=== PATIENT | female | born 1990 | race Caucasian/White ===

== ENCOUNTER 2019-01-07 23:04 | Emergency (ER) | payer SELFPAY ==
[2019-01-07] MEDS ORDERED: ACETAMINOPHEN 325 MG TABLET ONE (23:30)
[2019-01-07] MEDS ORDERED: IBUPROFEN 200 MG TAB PO ONE (23:30)
[2019-01-07] MEDS ORDERED: IBUPROFEN 400 MG TAB ONE (23:31)
--- NOTE | 2019-01-08 00:30 | ER ---
Nurse's Notes [facility] Name: Bertha Sanches Age: 28 yrs Sex: Female : 1990 Arrival Date: 01/07/2019 Time: 23:06 Bed 27 Private MD: Diagnosis: Pain in left arm;Paresthesia of skin-left arm Presentation: 01/07 23:14 Presenting complaint: Patient states: she had the nexplanon implant removed from her L aa1 arm on Monday and has been having tingling in her arm and a headache ever since. Transition of care: patient was not received from another setting of care. Onset of symptoms was January 04, 2019. Risk Assessment: Do you want to hurt yourself or someone else? Patient reports no desire to harm self or others. Initial Sepsis Screen: Does the patient meet any 2 criteria? No. Patient's initial sepsis screen is negative. Does the patient have a suspected source of infection? No. Patient's initial sepsis screen is negative. Care prior to arrival: None. 23:14 Method Of Arrival: Ambulatory aa1 23:14 Acuity: JAY 4 aa1 Triage Assessment: 23:17 General: Appears in no apparent distress. comfortable, slender, unkempt, Behavior is aa1 calm, cooperative, appropriate for age. Pain: Complains of pain in left arm. 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 - Social history:: Smoking status: Patient uses tobacco products, smokes one pack cigarettes per day. - Ebola Screening: : No symptoms or risks identified at this time. Screenin:36 Abuse screen: Denies threats or abuse. Nutritional screening: No deficits noted. tr5 Tuberculosis screening: No symptoms or risk factors identified. Fall Risk None identified. Assessment: 23:36 General: Appears uncomfortable, Behavior is calm, cooperative, appropriate for age. tr5 Pain: Complains of pain in left arm Radiates to fingertips. Neuro: Level of Consciousness is awake, alert, obeys commands, Oriented to person, place, time, Dial Equipment Engineer are equal bilaterally Moves all extremities. Cardiovascular: Heart tones present Capillary refill < 3 seconds Pulses are all present. Edema is absent. Respiratory: Airway is patent Respiratory effort is even, unlabored, Respiratory pattern is regular, symmetrical. GI: No signs and/or symptoms were reported involving the gastrointestinal system. : No signs and/or symptoms were reported regarding the genitourinary system. EENT: No signs and/or symptoms were reported regarding the EENT system. Derm: Wound noted left bicep. Musculoskeletal: Capillary refill < 3 seconds. Vital Signs: 23:17 BP 107 / 65; Pulse 62; Resp 16; Temp 97.6; Pulse Ox 100% ; Weight 54.43 kg; Height 4 aa1 ft. 11 in. (149.86 cm); Pain 4/10; 23:17 Body Mass Index 24.24 (54.43 kg, 149.86 cm) aa1 ED Course: 23:06 Patient arrived in ED. ds1 23:12 Chauncey Sher PA is PHCP. cp 23:12 Juan Carlos Herrera MD is Attending Physician. cp 23:13 Patient has correct armband on for positive identification. tr5 23:16 Triage completed. aa1 23:17 Arm band placed on right wrist. Patient placed in an exam room, on a stretcher. aa1 23:24 Sebas John, RN is Primary Nurse. tr5 01/08 00:58 XRAY Forearm LEFT In Process Unspecified. EDMS 00:58 XRAY Humerus LEFT In Process Unspecified. EDMS 01:00 No provider procedures requiring assistance completed. Patient did not have IV access tr5 during this emergency room visit. Administered Medications: 01/07 23:35 Not Given (Patient Refused): Ibuprofen 600 mg PO once tr5 23:35 Drug: Tylenol 650 mg Route: PO; tr5 01/08 00:36 Follow up: Response: Pain is decreased tr5 Outcome: 00:30 Discharge ordered by . cp 01:00 Discharged to home ambulatory. tr5 01:00 Condition: stable 01:00 Discharge instructions given to patient, Instructed on discharge instructions, follow up and referral plans. medication usage, Demonstrated understanding of instructions, follow-up care, medications, Prescriptions given X 1. 01:01 Patient left the ED. tr5 Signatures: Dispatcher [employer] Fozia Brown RN RN aa1 Gabi Glynn ds1 Chauncey Sher PA PA cp Rodriguez, Tommie, RN RN tr5
--- NOTE | 2019-01-08 00:31 | EDPHYS ---
Physician Documentation [facility] Name: Bertha Sanches Age: 28 yrs Sex: Female : 1990 Arrival Date: 01/07/2019 Time: 23:06 Bed 27 Private MD: ED Physician Juan Carlos Herrera HPI: 01/07 23:21 This 28 yrs old Female presents to ER via Ambulatory with complaints of cp Tingiling through arm. 23:21 The patient or guardian complains of pain, that is acute, swelling, tenderness. The cp complaints affect the left upper arm and left forearm. Context: Patient reports having Nexplanon implant removed 3 days ago and since reports pain and tingling down medial aspect of arm to middle, fourth and fifth fingers. 23:21 Treatment prior to arrival includes: no previous treatment. cp 23:21 Associated signs and symptoms: Pertinent positives: swelling, open wound medial aspect cp left upper arm, Pertinent negatives: decreased range of motion, deformity, fever. 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 - Social history:: Smoking status: Patient uses tobacco products, smokes one pack cigarettes per day. - Ebola Screening: : No symptoms or risks identified at this time. ROS: 23:30 MS/extremity: Positive for pain, paresthesias, of the left arm, Negative for injury or cp acute deformity, decreased range of motion. 23:30 Constitutional: Negative for body aches, chills, fever, poor PO intake. cp 23:30 Neck: Negative for pain with movement, pain at rest, stiffness. 23:30 Cardiovascular: Negative for chest pain, palpitations. 23:30 Respiratory: Negative for cough, shortness of breath, wheezing. 23:30 Abdomen/GI: Negative for abdominal pain, nausea, vomiting, and diarrhea. 23:30 Neuro: Positive for headache, Negative for altered mental status, weakness. 23:30 All other systems are negative. Exam: 23:40 Constitutional: The patient appears in no acute distress, alert, awake, non-toxic, well cp developed, well nourished. 23:40 Head/Face: Normocephalic, atraumatic. cp 23:40 Chest/axilla: Inspection: normal, Palpation: is normal, no crepitus, no tenderness. 23:40 Cardiovascular: Rate: normal, Rhythm: regular, Pulses: Pulses are 2+ in right radial artery and left radial artery. 23:40 Respiratory: the patient does not display signs of respiratory distress, Respirations: normal, no use of accessory muscles, labored breathing, is not present, Breath sounds: are clear throughout, no decreased breath sounds, no stridor, no wheezing. 23:40 Musculoskeletal/extremity: Extremities: grossly normal except: noted in the medial aspect of left upper arm and medial aspect left forearm: pain, swelling, tenderness, mild erythema along medial elbow, There is no evidence of decreased ROM, deformity, ROM: full passive range of motion, in the left elbow, mild decreased sensation along medial nerve 23:40 Skin: injury, laceration(s), the wound is approximately 1 cm(s), of the medial aspect left upper arm. Vital Signs: 23:17 BP 107 / 65; Pulse 62; Resp 16; Temp 97.6; Pulse Ox 100% ; Weight 54.43 kg; Height 4 aa1 ft. 11 in. (149.86 cm); Pain 4/10; 23:17 Body Mass Index 24.24 (54.43 kg, 149.86 cm) aa1 MDM: 23:15 Patient medically screened. cp 01/08 00:20 Data reviewed: vital signs, nurses notes, radiologic studies, plain films. cp 00:20 Differential diagnosis: closed fracture, cellulitis, neuropathy. Test interpretation: cp by ED physician or midlevel provider: plain radiologic studies, xrays of left humerus negative for fracture and xrays of left forearm negative for fracture. Counseling: I had a detailed discussion with the patient and/or guardian regarding: the historical points, exam findings, and any diagnostic results supporting the discharge/admit diagnosis, radiology results, the need for outpatient follow up, a family practitioner, to return to the emergency department if symptoms worsen or persist or if there are any questions or concerns that arise at home. Response to treatment: the patient's symptoms have mildly improved after treatment, and as a result, I will discharge patient. 01/07 23:20 Order name: XRAY Forearm LEFT cp 01/07 23:20 Order name: XRAY Humerus LEFT cp 01/08 00:05 Order name: Wound dressing: please clean and irrigate wound; Complete Time: 00:36 cp 01/08 00:09 Order name: Sling; Complete Time: 00:36 cp Administered Medications: 01/07 23:35 Not Given (Patient Refused): Ibuprofen 600 mg PO once tr5 23:35 Drug: Tylenol 650 mg Route: PO; tr5 01/08 00:36 Follow up: Response: Pain is decreased tr5 Disposition: 01:15 Chart complete. cp 04:31 Co-signature as Attending Physician, Juan Carlos Herrera MD I agree with the assessment and tw4 plan of care. Disposition: 01/08/19 00:30 Discharged to Home. Impression: Pain in left arm, Paresthesia of skin - left arm. - Condition is Stable. - Discharge Instructions: Elastic Bandage and RICE, Musculoskeletal Pain, Paresthesia, Heat Therapy. - Prescriptions for Keflex 500 mg Oral Capsule - take 1 capsule by ORAL route every 8 hours for 10 days; 30 capsule. - Medication Reconciliation Form, Thank You Letter, Antibiotic Education, Prescription Opioid Use, Work release form form. - Follow up: Private Physician; When: 48 Hours; Reason: Wound Recheck. - Problem is new. - Symptoms have improved. Signatures: Dispatcher [employer] Fozia Brown RN RN aa1 Chauncey Sher PA PA cp Wadley, Terrence, MD MD tw4 Sebas John RN RN tr5 Corrections: (The following items were deleted from the chart) 01: 00:30 01/08/2019 00:30 Discharged to Home. Impression: Pain in left arm; Paresthesia of tr5 skin - left arm. Condition is Stable. Forms are Medication Reconciliation Form, Thank You Letter, Antibiotic Education, Prescription Opioid Use. Follow up: Private Physician; When: 48 Hours; Reason: Wound Recheck. Problem is new. Symptoms have improved. cp
[2019-01-08 01:27] VITALS: BP 107/65; TEMP 97.6; O2SAT 100
--- NOTE | 2019-01-08 08:26 | RAD REPORT ---
EXAM DESCRIPTION: RAD - Humerus Left - 01/08/2019 12:58 am CLINICAL HISTORY: Arm pain, possible retained implant COMPARISON: None. FINDINGS: No fracture is identified. There is no dislocation or periosteal reaction noted. No forei gn body, air or other suspicious soft tissue finding. IMPRESSION: Negative left humerus examination.
--- NOTE | 2019-01-08 08:26 | RAD REPORT ---
EXAM DESCRIPTION: RAD - Forearm Left - 01/08/2019 12:58 am CLINICAL HISTORY: Left arm pain, possible foreign body COMPARISON: None. FINDINGS: No fracture is identified. There is no dislocation or periosteal reaction noted. No foreign body or other soft tissue abnormality. IMPRESSION: Negative left forearm examination.
== END 2019-01-08 01:01 | disposition home or self-care (01) ==
LOC: ER 23:04
DX: M79.622 Pain in left upper arm (principal); R20.2 Paresthesia of skin; F17.210 Nicotine dependence, cigarettes, uncomplicated
CPT/HCPCS: 99283

== ENCOUNTER 2019-01-20 19:08 | Emergency (ER) | payer SELFPAY ==
[2019-01-20 19:38] LABS: Absolute Lymphocytes (CBC) 1.1 K/uL (0.7-4.9); Basophils % 0.4 % (0-1.3); Hematocrit 37.1 % (36.0-45.0); Lymphocytes % 13.6 % (15.3-44.8); MPV 9.1 fL (7.6-11.3)
--- NOTE | 2019-01-20 19:38 | RAD REPORT ---
EXAM DESCRIPTION: CT - Ct Stroke Brain Wo Cont - 01/20/2019 7:32 pm CLINICAL HISTORY: aphasia COMPARISON: none TECHNIQUE: Computed axial tomography of the head was obtained. All CT scans are performed using dose optimization technique as appropriate and may include automated exposure control or mA/KV adjustment according to patient size. FINDINGS: An intracranial bleed is not seen . The ventricles are normal in caliber. No extra-axial fluid collection is noted. Fluid within the sinuses/ mastoids is not seen. IMPRESSION: No acute intracranial abnormality is seen. If patient's symptoms persist MRI of the bra in would be recommended. Brando Kiser of the emergency room was notified at 7:31 p.m. January 20, 2019
[2019-01-20 19:42] LABS: Protime INR 1.1
[2019-01-20 19:57] LABS: BUN Blood Urea Nitrogen 12 mg/dL (7-18); Bicarbonate 25 mmol/L (21-32); Glucose Level 91 mg/dL (74-106); Sodium Level 141 mmol/L (136-145)
[2019-01-20 20:00] LABS: ALT/SGPT 22 U/L (12-78); AST/SGOT 12 U/L (15-37); Albumin 4.1 g/dL (3.4-5.0); Alkaline Phosphatase 44 U/L (45-117); Bilirubin Direct < 0.1 mg/dL (0-0.2); Bilirubin Total 0.3 mg/dL (0.2-1.0); Protein, Total 7.1 g/dL (6.4-8.2)
[2019-01-20 20:31] LABS: Barbiturates NEGATIVE (NEGATIVE); Benzodiazepines POSITIVE (NEGATIVE); Cocaine NEGATIVE (NEGATIVE); METHAMPHETAM NEGATIVE (NEGATIVE); Methadone NEGATIVE (NEGATIVE); Opiates NEGATIVE (NEGATIVE); Phencyclidine NEGATIVE (NEGATIVE); THC Cannibis NEGATIVE (NEGATIVE)
[2019-01-20 20:45] LABS: Urine Blood NEGATIVE (NEG); Urine Glucose NEGATIVE (NEG); Urine Protein NEGATIVE (NEG); Urine Specific Gravity >1.030 (1.005-1.030)
--- NOTE | 2019-01-20 20:54 | RAD REPORT ---
EXAM DESCRIPTION: Ayush Single View01/20/2019 7:46 pm CLINICAL HISTORY: Alteration of consciousness COMPARISON: none FINDINGS: A curvilinear lucency abuts the right side of the heart. Otherwise lungs appear clear. The heart is normal size IMPRESSION: Curvilinear lucency which abuts the right side of the heart probably normal aerated diya g interposed between the heart and pulmonary vessels given the appearance of pneumomediastinum. Pneum omediastinum is another consideration but probably is less likely. If the patient has clinical sympto ms to suggest pneumomediastinum then CT chest would be recommended
--- NOTE | 2019-01-20 21:32 | EDPHYS ---
Physician Documentation [facility] Name: Bertha Sanches Age: 28 yrs Sex: Female : 1990 Arrival Date: 01/20/2019 Time: 19:12 Bed 2 Private MD: ED Physician Juan Carlos Herrera HPI: 01/20 21:07 This 28 yrs old Female presents to ER via EMS with complaints of Aphasia. jr8 21:07 Onset: The symptoms/episode began/occurred acutely, today. Context: the episode(s) was jr8 witnessed, by police. The symptoms are alleviated by nothing. The symptoms are aggravated by nothing. Associated signs and symptoms: The patient has no apparent associated signs or symptoms. Severity of symptoms: At their worst the symptoms were mild in the emergency department the symptoms are unchanged. The patient has not experienced similar symptoms in the past. It is unknown whether or not the patient has recently seen a physician. Patient was brought in by EMS after someone had called them because patient would not speak. Stated that she was found sitting in passenger side of car. Will not talk. Unknown why. Patient alert and awake upon arrival. No acute distress. Not willing to talk but will nod head. NURSES ASSISTANT: 19:15 unable to obtain information, patient is aphasic rr5 Historical: - Allergies: 19:15 No Known Allergies; rr5 - Home Meds: 19:15 None [Active]; rr5 - PMHx: 19:15 None; rr5 - PSHx: 19:15 None; rr5 - Immunization history:: Adult Immunizations up to date. - Social history:: Smoking status: Patient uses tobacco products, smokes one-half pack cigarettes per day, Patient/guardian denies using alcohol, street drugs, as reported by her mother. - Ebola Screening: : Unable to complete screening because. ROS: 21:07 Eyes: Negative for injury, pain, redness, and discharge, ENT: Negative for injury, jr8 pain, and discharge, Neck: Negative for injury, pain, and swelling, Cardiovascular: Negative for chest pain, palpitations, and edema, Respiratory: Negative for shortness of breath, cough, wheezing, and pleuritic chest pain, Abdomen/GI: Negative for abdominal pain, nausea, vomiting, diarrhea, and constipation, Back: Negative for injury and pain, MS/Extremity: Negative for injury and deformity, Skin: Negative for injury, rash, and discoloration. 21:07 Neuro: Positive for altered mental status, speech changes. Exam: 21:07 Radiologist reports: No acute findings jr8 21:07 Eyes: Pupils equal round and reactive to light, extra-ocular motions intact. Lids and lashes normal. Conjunctiva and sclera are non-icteric and not injected. Cornea within normal limits. Periorbital areas with no swelling, redness, or edema. ENT: Nares patent. No nasal discharge, no septal abnormalities noted. Tympanic membranes are normal and external auditory canals are clear. Oropharynx with no redness, swelling, or masses, exudates, or evidence of obstruction, uvula midline. Mucous membranes moist. Neck: Trachea midline, no thyromegaly or masses palpated, and no cervical lymphadenopathy. Supple, full range of motion without nuchal rigidity, or vertebral point tenderness. No Meningismus. Cardiovascular: Regular rate and rhythm with a normal S1 and S2. No gallops, murmurs, or rubs. Normal PMI, no JVD. No pulse deficits. Respiratory: Lungs have equal breath sounds bilaterally, clear to auscultation and percussion. No rales, rhonchi or wheezes noted. No increased work of breathing, no retractions or nasal flaring. Abdomen/GI: Soft, non-tender, with normal bowel sounds. No distension or tympany. No guarding or rebound. No evidence of tenderness throughout. Back: No spinal tenderness. No costovertebral tenderness. Full range of motion. Skin: Warm, dry with normal turgor. Normal color with no rashes, no lesions, and no evidence of cellulitis. MS/ Extremity: Pulses equal, no cyanosis. Neurovascular intact. Full, normal range of motion. 21:07 Neuro: Patient moves all extremities and follows commands. Refuses to try and talk. Will open mouth and stick tongue out but will not gesture even attempt to talk. No gross loss of sensation. Cerebellar exam normal. Gait not tested. Vital Signs: 19:15 BP 128 / 74; Pulse 50; Resp 16; Temp 98.3; Pulse Ox 99% on R/A; Weight 49.9 kg; Height rr5 4 ft. 11 in. (149.86 cm); 20:00 BP 121 / 65; Pulse 51; Resp 17; Pulse Ox 100% ; rr5 21:00 BP 115 / 70; Pulse 49; Resp 19; Pulse Ox 98% on R/A; rr5 22:00 BP 121 / 70; Pulse 53; Resp 16; Temp 98.2; Pulse Ox 99% ; Pain 0/10; rr5 19:15 Body Mass Index 22.22 (49.90 kg, 149.86 cm) rr5 NIH Stroke Scale Scores: 19:15 NIHSS Score: 12 rr5 19:15 NIHSS Score: 12 rr5 21:40 NIHSS Score: 0 rr5 22:00 NIHSS Score: 0 rr5 Alissa Coma Score: 19:15 Eye Response: spontaneous(4). Verbal Response: none(1). Motor Response: localizes rr5 pain(5). Total: 10. 20:30 Eye Response: spontaneous(4). Verbal Response: none(1). Motor Response: obeys rr5 commands(6). Total: 11. 21:40 Eye Response: spontaneous(4). Verbal Response: oriented(5). Motor Response: obeys rr5 commands(6). Total: 15. 22:00 Eye Response: spontaneous(4). Verbal Response: oriented(5). Motor Response: obeys rr5 commands(6). Total: 15. 19:15 aphasic rr5 20:30 aphasic rr5 MDM: 19:32 Patient medically screened. [facility] 21:28 Data reviewed: vital signs, nurses notes, lab test result(s), EKG, radiologic studies, jr CT scan, plain films. Data interpreted: Pulse oximetry: on room air is 98 %. Interpretation: normal. Counseling: I had a detailed discussion with the patient and/or guardian regarding: the historical points, exam findings, and any diagnostic results supporting the discharge/admit diagnosis, lab results, radiology results, the need for outpatient follow up, a family practitioner, to return to the emergency department if symptoms worsen or persist or if there are any questions or concerns that arise at home. Response to treatment: the patient's symptoms have resolved after treatment. ED course: Patient now able to talk. Stated that she was just very upset earlier because of incident at work. Denies physical harm. Now back to baseline but stated that she remembered everything from earlier when we initially evaluated. Just did not want to talk at that time but feels better now. Wants to go home. No acute findings on labs or imaging. Will send home to f/u with PCP . 01/20 19:26 Order name: Basic Metabolic Panel; Complete Time: 19:58 01/20 19:26 Order name: CBC with Diff; Complete Time: 19:45 01/20 19:26 Order name: Protime (+inr); Complete Time: 19:45 01/20 19:26 Order name: Ptt, Activated; Complete Time: 19:45 01/20 19:33 Order name: Urine Drug Screen; Complete Time: 20:37 [facility] 01/20 19:33 Order name: LFT's; Complete Time: 20:14 [facility] 01/20 19:26 Order name: CT Stroke Brain w/o Contrast 01/20 19:26 Order name: Stroke CXR 1 View 01/20 19:26 Order name: EKG; Complete Time: 19:27 01/20 19:26 Order name: Accucheck; Complete Time: 19:48 01/20 19:26 Order name: Cardiac monitoring; Complete Time: 19:48 01/20 19:42 Order name: Glucose, Ancillary Testing; Complete Time: 19:45 EDMS 01/20 20:09 Order name: Urine Dipstick--Ancillary (enter results); Complete Time: 20:47 mw2 01/20 20:09 Order name: Urine --Ancillary (enter results); Complete Time: 20:47 2 01/20 19:26 Order name: EKG - Nurse/Tech; Complete Time: 19:48 01/20 19:26 Order name: IV Saline Lock; Complete Time: 19:48 01/20 19:26 Order name: Labs collected and sent; Complete Time: 19:45 01/20 19:26 Order name: NPO; Complete Time: 19:45 01/20 19:26 Order name: O2 Per Protocol; Complete Time: 19:48 01/20 19:26 Order name: O2 Sat Monitoring; Complete Time: 19:48 01/20 19:26 Order name: Stroke Swallow Screen; Complete Time: 21:08 01/20 19:33 Order name: Urine Test (obtain specimen); Complete Time: 21:08 [facility] 01/20 19:33 Order name: Urine Dipstick-Ancillary (obtain specimen); Complete Time: 21:08 jr8 01/20 19:33 Order name: Straight Cath - Urine; Complete Time: 21:13 jr8 Administered Medications: No medications were administered Point of Care Testing: Blood Glucose: 19:23 Blood Glucose: 93 mg/dL; rr5 Ranges: Critical Glucose Levels:Adult <50 mg/dl or >400 mg/dl <40 mg/dl or >180 mg/dl Disposition: 01/21 04:21 Co-signature as Attending Physician, Juan Carlos Herrera MD. Co-signature as Attending tw4 Physician, Juan Carlos Herrera MD I agree with the assessment and plan of care. Disposition: 01/20/19 21:31 Discharged to Home. Impression: Emotional lability. - Condition is Stable. - Discharge Instructions: Major Depressive Disorder. - Medication Reconciliation Form, Thank You Letter, Antibiotic Education, Prescription Opioid Use form. - Follow up: Private Physician; When: 1 - 2 days; Reason: Recheck today's complaints, Continuance of care, Re-evaluation by your physician. - Problem is new. - Symptoms are resolved. NIH Stroke Scale - NIH Stroke Score Date: 01/20/2019 Time: 19:15 Total Score = 12 1a. Level of Consciousness (LOC) - 0(Alert) 1b. Level of Consciousness (LOC) (Year \T\ Age) - 2(Neither) 1c. LOC Commands (Open \T\ Closes Eyes/Chemistry Instructor) - 0(Both) 2. Best Gaze (Lateral Gaze Paresis) - 0(Normal) 3. Visual Field Loss - 0(No visual loss) 4. Facial Palsy - 0(Normal) 5a. Left Arm: Motor (10-second hold) - 3(No effort against gravity) 5b. Right Arm: Motor (10-second hold) - 3(No effort against gravity) 6a. Left Leg: Motor (5-second hold - always test supine) - 0(No drift) 6b. Right Leg: Motor (5-second hold - always test supine) - 0(No drift) 7. Limb Ataxia (finger/nose \T\ heel/oviedo - test with eyes open) - 0(Absent) 8. Sensory Loss (pinprick arms/legs/face) - 0(Normal) 9. Best Language: Aphasia (description/naming/reading) - 2(Severe aphasia) 10. Dysarthria (speech clarity - read or repeat words) - 2(Severe) 11. Extinction and Inattention (visual/tactile/auditory/spatial/personal) - 0(No abnormality) Initials: rr5 NIH Stroke Scale - NIH Stroke Score Date: 01/20/2019 Time: 19:15 Total Score = 12 1a. Level of Consciousness (LOC) - 0(Alert) 1b. Level of Consciousness (LOC) (Year \T\ Age) - 2(Neither) 1c. LOC Commands (Open \T\ Closes Eyes/Chemistry Instructor) - 0(Both) 2. Best Gaze (Lateral Gaze Paresis) - 0(Normal) 3. Visual Field Loss - 0(No visual loss) 4. Facial Palsy - 0(Normal) 5a. Left Arm: Motor (10-second hold) - 3(No effort against gravity) 5b. Right Arm: Motor (10-second hold) - 3(No effort against gravity) 6a. Left Leg: Motor (5-second hold - always test supine) - 0(No drift) 6b. Right Leg: Motor (5-second hold - always test supine) - 0(No drift) 7. Limb Ataxia (finger/nose \T\ heel/oviedo - test with eyes open) - 0(Absent) 8. Sensory Loss (pinprick arms/legs/face) - 0(Normal) 9. Best Language: Aphasia (description/naming/reading) - 2(Severe aphasia) 10. Dysarthria (speech clarity - read or repeat words) - 2(Severe) 11. Extinction and Inattention (visual/tactile/auditory/spatial/personal) - 0(No abnormality) Initials: rr5 NIH Stroke Scale - NIH Stroke Score Date: 01/20/2019 Time: 21:40 Total Score = 0 1a. Level of Consciousness (LOC) - 0(Alert) 1b. Level of Consciousness (LOC) (Year \T\ Age) - 0(Both) 1c. LOC Commands (Open \T\ Closes Eyes/Chemistry Instructor) - 0(Both) 2. Best Gaze (Lateral Gaze Paresis) - 0(Normal) 3. Visual Field Loss - 0(No visual loss) 4. Facial Palsy - 0(Normal) 5a. Left Arm: Motor (10-second hold) - 0(No drift) 5b. Right Arm: Motor (10-second hold) - 0(No drift) 6a. Left Leg: Motor (5-second hold - always test supine) - 0(No drift) 6b. Right Leg: Motor (5-second hold - always test supine) - 0(No drift) 7. Limb Ataxia (finger/nose \T\ heel/oviedo - test with eyes open) - 0(Absent) 8. Sensory Loss (pinprick arms/legs/face) - 0(Normal) 9. Best Language: Aphasia (description/naming/reading) - 0(No aphasia) 10. Dysarthria (speech clarity - read or repeat words) - 0(Normal) 11. Extinction and Inattention (visual/tactile/auditory/spatial/personal) - 0(No abnormality) Initials: rr5 NIH Stroke Scale - NIH Stroke Score Date: 01/20/2019 Time: 22:00 Total Score = 0 1a. Level of Consciousness (LOC) - 0(Alert) 1b. Level of Consciousness (LOC) (Year \T\ Age) - 0(Both) 1c. LOC Commands (Open \T\ Closes Eyes/Chemistry Instructor) - 0(Both) 2. Best Gaze (Lateral Gaze Paresis) - 0(Normal) 3. Visual Field Loss - 0(No visual loss) 4. Facial Palsy - 0(Normal) 5a. Left Arm: Motor (10-second hold) - 0(No drift) 5b. Right Arm: Motor (10-second hold) - 0(No drift) 6a. Left Leg: Motor (5-second hold - always test supine) - 0(No drift) 6b. Right Leg: Motor (5-second hold - always test supine) - 0(No drift) 7. Limb Ataxia (finger/nose \T\ heel/oviedo - test with eyes open) - 0(Absent) 8. Sensory Loss (pinprick arms/legs/face) - 0(Normal) 9. Best Language: Aphasia (description/naming/reading) - 0(No aphasia) 10. Dysarthria (speech clarity - read or repeat words) - 0(Normal) 11. Extinction and Inattention (visual/tactile/auditory/spatial/personal) - 0(No abnormality) Initials: rr5 Signatures: Dispatcher [employer] EDMS Cande Nguyen, NAINA RN Brando Waller PA PA jr8 Wadley, Terrence, MD MD tw4 Erick Trejo, RN RN rr5 Corrections: (The following items were deleted from the chart) 01/20 21:56 21:31 01/20/2019 21:31 Discharged to Home. Impression: Emotional lability. rr5 Condition is Stable. Forms are Medication Reconciliation Form, Thank You Letter, Antibiotic Education, Prescription Opioid Use. Follow up: Private Physician; When: 1 - 2 days; Reason: Recheck today's complaints, Continuance of care, Re-evaluation by your physician. Problem is new. Symptoms are resolved. jr8
--- NOTE | 2019-01-20 21:32 | ER ---
Nurse's Notes [facility] Name: Bertha Sanches Age: 28 yrs Sex: Female : 1990 Arrival Date: 01/20/2019 Time: 19:12 Bed 2 Private MD: Diagnosis: Emotional lability Presentation: 01/20 19:15 Presenting complaint: EMS states: we were called out for a patient found at the rickshaw driver rr5 passenger side not talking, not saying anything just a head nod. vitally stable, pulse is on the lower side 48-50's. no clear history. last seen normal 4pm. 19:15 Transition of care: patient was not received from another setting of care. An acute rr5 neurological deficit is present. The charge nurse has been notified. The patient has been moved to a treatment area. Pre-hospital glucose is not applicable to this patient. Onset of symptoms was January 20, 2019 at 16:00. Risk Assessment: Do you want to hurt yourself or someone else? Unable to obtain. Initial Sepsis Screen: Does the patient meet any 2 criteria? No. Patient's initial sepsis screen is negative. Does the patient have a suspected source of infection? No. Patient's initial sepsis screen is negative. 19:15 Method Of Arrival: EMS: [facility] rr5 19:15 Acuity: JAY 2 rr5 19:25 Note mother came and said the patient called her around 4 pm without saying anything, I rr5 don't know what happened to her as verbalized by the family member. no clear history obtained. Care prior to arrival: None. Triage Assessment: 19:15 The onset of the patients symptoms was January 20, 2019 at 16:00. rr5 19:15 Neuro: Reports unable to obtain. rr5 19:15 General: Appears in no apparent distress. Behavior is quiet, aphasic. rr5 WEAPONS DESIGNER: 19:15 unable to obtain information, patient is aphasic rr5 Stroke Activation: Symtpom onset >3 hours and < 6 hours Physician: Stroke Attending; Name: brando JACKSON; Notified At: 19:16; Arrived At: 19:16 Physician: Chief Stroke Resident; Name: ; Notified At: 19:16; Arrived At: Physician: Stroke Resident; Name: ; Notified At: 19:16; Arrived At: Physician: ED Attending; Name: dr. pena; Notified At: 19:16; Arrived At: 19:16 Physician: ED Resident; Name: brando JACKSON; Notified At: 19:16; Arrived At: 19:16 Historical: - Allergies: 19:15 No Known Allergies; rr5 - Home Meds: 19:15 None [Active]; rr5 - PMHx: 19:15 None; rr5 - PSHx: 19:15 None; rr5 - Immunization history:: Adult Immunizations up to date. - Social history:: Smoking status: Patient uses tobacco products, smokes one-half pack cigarettes per day, Patient/guardian denies using alcohol, street drugs, as reported by her mother. - Ebola Screening: : Unable to complete screening because. Screenin:15 VAN Screening: Arm Drift: Flaccid or no effort against gravity. Visual Disturbance: No rr5 visual disturbance noted. Aphasia: Expressive aphasia noted. Provider notified of +VAN scoring. Neglect: No neglect noted. 19:20 Abuse screen: Denies threats or abuse. Denies injuries from another. Nutritional rr5 screening: No deficits noted. Tuberculosis screening: No symptoms or risk factors identified. Fall Risk IV access (20 points). Mental Status- Overestimates/Forgets Limitations (15 pts.). Total Mejia Fall Scale indicates High Risk Score (45 or more points). Fall prevention measures have been instituted. Side Rails Up X 2 Placed Close to Nursing Station Frequent Obs/Assessments Occuring Family Present and informed to notify staff if the need to leave the bedside As available patient and family educated on Fall Prevention Program and Strategies. 20:45 Patient has been NPO before screening. The patient is alert, able to follow commands. rr5 aphasia The patient is exhibiting difficulty speaking. Provider notified of indication for Speech Therapy consult. aphasic The patient does not exhibit difficulty understanding words. The patient is able to swallow own secretions with no drooling or need for suction. Patient tolerated one teaspoon of water. No drooling, immediate coughing, gurgling, or clearing of the throat was noted. aphasic The patient tolerated 90mL of water. No drooling, immediate coughing, gurgling, or clearing of the throat was noted. aphasic The patient failed the bedside swallow screening. The patient will be kept NPO until cleared by Speech Therapy or Physician. Provider notified of bedside swallow screening results: Brando JACKSON. Assessment: 19:15 General: Appears in no apparent distress. uncomfortable, Behavior is quiet, aphasic, rr5 unable to follow command.. 19:15 Reassessment: came via EMS found in the car front passenger side,awake, aphasic, no rr5 clear history obtain from the neighbors, last seen normal 4PM as per EMS. Pain: Unable to use pain scale. Patient appears aphasic. Neuro: Level of Consciousness is awake, Oriented to unable to obtain information. patient is aphasic. Speech with expressive aphasia noted, Facial symmetry appears normal, Pupils are PERRLA. Cardiovascular: Capillary refill < 3 seconds Patient's skin is warm and dry. Rhythm is sinus bradycardia. Respiratory: Airway is patent Respiratory effort is even, unlabored, Respiratory pattern is regular, symmetrical. GI: unable to obtain information. : unable to obtain information. EENT: Throat is clear with gag reflex present. Derm: Skin is intact, is healthy with good turgor, Skin temperature is warm. 19:15 Musculoskeletal: Capillary refill < 3 seconds, unable to follow command. rr5 19:50 Reassessment: CT initial result negative. rr5 20:30 VAN Scoring: Arm Drift: Patients demonstrates NO arm weakness. Patient is VAN Negative. rr5 Aphasia: Expressive aphasia noted. Provider notified of +VAN scoring. Patient has been NPO before screening. The patient is alert, and able to follow commands. The patient does not exhibit slurred or garbled speech. aphasia The patient is exhibiting difficulty speaking. Provider notified of the indication for Speech Therapy consult. aphasia The patient does not exhibit difficulty understanding words. The patient is able to swallow own secretions with no drooling or need for suction. Patient tolerated one teaspoon of water. No drooling, immediate coughing, gurgling, or clearing of the throat was noted. The patient tolerated 90mL of water. No drooling, immediate coughing, gurgling, or clearing of the throat was noted. The patient failed the bedside swallow screening. The patient will be kept NPO until cleared by Speech Therapy or Physician. Provider notified of bedside swallow screening results: Brando JACKSON. 20:30 Reassessment: patient still aphasic, nod when conversing. able to follow command, able rr5 to raise her arm. 21:40 Reassessment: Patient appears in no apparent distress at this time. Patient is alert, rr5 oriented x 3, equal unlabored respirations, skin warm/dry/pink. reassess by ED provider patient able to speak clearly AO x4 GCS 15/15, answered questions correctly. vitally stable.ordered for discharge. Patient denies pain at this time. Patient states feeling better. Patient states symptoms have improved. 21:40 Reassessment: patient verbalized to ED provider she was upset from work, she don't want rr5 to talk about it. 22:00 Reassessment: Patient appears in no apparent distress at this time. Patient is alert, rr5 oriented x 3, equal unlabored respirations, skin warm/dry/pink. discharge instruction given and explained without complaints made. verbalized understanding. Patient states feeling better. Patient states symptoms have improved. Vital Signs: 19:15 BP 128 / 74; Pulse 50; Resp 16; Temp 98.3; Pulse Ox 99% on R/A; Weight 49.9 kg; Height rr5 4 ft. 11 in. (149.86 cm); 20:00 BP 121 / 65; Pulse 51; Resp 17; Pulse Ox 100% ; rr5 21:00 BP 115 / 70; Pulse 49; Resp 19; Pulse Ox 98% on R/A; rr5 22:00 BP 121 / 70; Pulse 53; Resp 16; Temp 98.2; Pulse Ox 99% ; Pain 0/10; rr5 19:15 Body Mass Index 22.22 (49.90 kg, 149.86 cm) rr5 Alissa Coma Score: 19:15 Eye Response: spontaneous(4). Verbal Response: none(1). Motor Response: localizes rr5 pain(5). Total: 10. 20:30 Eye Response: spontaneous(4). Verbal Response: none(1). Motor Response: obeys rr5 commands(6). Total: 11. 21:40 Eye Response: spontaneous(4). Verbal Response: oriented(5). Motor Response: obeys rr5 commands(6). Total: 15. 22:00 Eye Response: spontaneous(4). Verbal Response: oriented(5). Motor Response: obeys rr5 commands(6). Total: 15. 19:15 aphasic rr5 20:30 aphasic rr5 NIH Stroke Scale Scores: 19:15 NIHSS Score: 12 rr5 19:15 NIHSS Score: 12 rr5 21:40 NIHSS Score: 0 rr5 22:00 NIHSS Score: 0 rr5 ED Course: 19:12 Patient arrived in ED. rr5 19:20 Patient has correct armband on for positive identification. Placed in gown. Bed in low rr5 position. Call light in reach. Side rails up X2. summer sessions director on. Pulse ox on. NIBP on. 19:30 Erick Trejo, NAINA is Primary Nurse. rr5 19:30 Inserted saline lock: 20 gauge in left forearm, using aseptic technique. Blood rr5 collected. 19:32 Brando Kiser PA is PHCP. jr8 19:32 Juan Carlos Pena MD is Attending Physician. jr8 19:34 CT Stroke Brain w/o Contrast In Process Unspecified. EDMS 19:40 Triage completed. rr5 19:43 Arm band placed on left wrist. rr5 19:46 Stroke CXR 1 View In Process Unspecified. EDMS 20:05 EKG done, by ED staff, reviewed by Brando JACKSON. rr5 20:10 Urine collected: straight cath specimen, clear, Amount Returned: 300mL. rr5 21:50 No provider procedures requiring assistance completed. IV discontinued, intact, rr5 bleeding controlled, No redness/swelling at site. Pressure dressing applied. Administered Medications: No medications were administered Point of Care Testing: Blood Glucose: 19:23 Blood Glucose: 93 mg/dL; rr5 Ranges: Outcome: 21:31 Discharge ordered by . jr8 21:55 Discharged to home ambulatory. rr5 21:55 Condition: stable 21:55 Discharge instructions given to patient, Instructed on discharge instructions, follow up and referral plans. Demonstrated understanding of instructions, follow-up care. 21:56 Patient left the ED. rr5 NIH Stroke Scale - NIH Stroke Score Date: 01/20/2019 Time: 19:15 Total Score = 12 1a. Level of Consciousness (LOC) - 0(Alert) 1b. Level of Consciousness (LOC) (Year \T\ Age) - 2(Neither) 1c. LOC Commands (Open \T\ Closes Eyes/Software Applications Specialist) - 0(Both) 2. Best Gaze (Lateral Gaze Paresis) - 0(Normal) 3. Visual Field Loss - 0(No visual loss) 4. Facial Palsy - 0(Normal) 5a. Left Arm: Motor (10-second hold) - 3(No effort against gravity) 5b. Right Arm: Motor (10-second hold) - 3(No effort against gravity) 6a. Left Leg: Motor (5-second hold - always test supine) - 0(No drift) 6b. Right Leg: Motor (5-second hold - always test supine) - 0(No drift) 7. Limb Ataxia (finger/nose \T\ heel/oviedo - test with eyes open) - 0(Absent) 8. Sensory Loss (pinprick arms/legs/face) - 0(Normal) 9. Best Language: Aphasia (description/naming/reading) - 2(Severe aphasia) 10. Dysarthria (speech clarity - read or repeat words) - 2(Severe) 11. Extinction and Inattention (visual/tactile/auditory/spatial/personal) - 0(No abnormality) Initials: rr5 NIH Stroke Scale - NIH Stroke Score Date: 01/20/2019 Time: 19:15 Total Score = 12 1a. Level of Consciousness (LOC) - 0(Alert) 1b. Level of Consciousness (LOC) (Year \T\ Age) - 2(Neither) 1c. LOC Commands (Open \T\ Closes Eyes/Software Applications Specialist) - 0(Both) 2. Best Gaze (Lateral Gaze Paresis) - 0(Normal) 3. Visual Field Loss - 0(No visual loss) 4. Facial Palsy - 0(Normal) 5a. Left Arm: Motor (10-second hold) - 3(No effort against gravity) 5b. Right Arm: Motor (10-second hold) - 3(No effort against gravity) 6a. Left Leg: Motor (5-second hold - always test supine) - 0(No drift) 6b. Right Leg: Motor (5-second hold - always test supine) - 0(No drift) 7. Limb Ataxia (finger/nose \T\ heel/oviedo - test with eyes open) - 0(Absent) 8. Sensory Loss (pinprick arms/legs/face) - 0(Normal) 9. Best Language: Aphasia (description/naming/reading) - 2(Severe aphasia) 10. Dysarthria (speech clarity - read or repeat words) - 2(Severe) 11. Extinction and Inattention (visual/tactile/auditory/spatial/personal) - 0(No abnormality) Initials: rr5 NIH Stroke Scale - NIH Stroke Score Date: 01/20/2019 Time: 21:40 Total Score = 0 1a. Level of Consciousness (LOC) - 0(Alert) 1b. Level of Consciousness (LOC) (Year \T\ Age) - 0(Both) 1c. LOC Commands (Open \T\ Closes Eyes/Software Applications Specialist) - 0(Both) 2. Best Gaze (Lateral Gaze Paresis) - 0(Normal) 3. Visual Field Loss - 0(No visual loss) 4. Facial Palsy - 0(Normal) 5a. Left Arm: Motor (10-second hold) - 0(No drift) 5b. Right Arm: Motor (10-second hold) - 0(No drift) 6a. Left Leg: Motor (5-second hold - always test supine) - 0(No drift) 6b. Right Leg: Motor (5-second hold - always test supine) - 0(No drift) 7. Limb Ataxia (finger/nose \T\ heel/oviedo - test with eyes open) - 0(Absent) 8. Sensory Loss (pinprick arms/legs/face) - 0(Normal) 9. Best Language: Aphasia (description/naming/reading) - 0(No aphasia) 10. Dysarthria (speech clarity - read or repeat words) - 0(Normal) 11. Extinction and Inattention (visual/tactile/auditory/spatial/personal) - 0(No abnormality) Initials: rr5 NIH Stroke Scale - NIH Stroke Score Date: 01/20/2019 Time: 22:00 Total Score = 0 1a. Level of Consciousness (LOC) - 0(Alert) 1b. Level of Consciousness (LOC) (Year \T\ Age) - 0(Both) 1c. LOC Commands (Open \T\ Closes Eyes/Software Applications Specialist) - 0(Both) 2. Best Gaze (Lateral Gaze Paresis) - 0(Normal) 3. Visual Field Loss - 0(No visual loss) 4. Facial Palsy - 0(Normal) 5a. Left Arm: Motor (10-second hold) - 0(No drift) 5b. Right Arm: Motor (10-second hold) - 0(No drift) 6a. Left Leg: Motor (5-second hold - always test supine) - 0(No drift) 6b. Right Leg: Motor (5-second hold - always test supine) - 0(No drift) 7. Limb Ataxia (finger/nose \T\ heel/oviedo - test with eyes open) - 0(Absent) 8. Sensory Loss (pinprick arms/legs/face) - 0(Normal) 9. Best Language: Aphasia (description/naming/reading) - 0(No aphasia) 10. Dysarthria (speech clarity - read or repeat words) - 0(Normal) 11. Extinction and Inattention (visual/tactile/auditory/spatial/personal) - 0(No abnormality) Initials: rr5 Signatures: Dispatcher [employer] EDMS Brando Kiser PA PA jr8 Erick Trejo RN RN rr5 Corrections: (The following items were deleted from the chart) 22:41 19:15 NIHSS Score: 6 rr5 rr5 22:41 19:15 VAN Screening: Arm Drift: Patient shows no arm weakness. Visual rr5 Disturbance: No visual disturbance noted. Aphasia: Expressive aphasia noted. Provider notified of +VAN scoring. Neglect: No neglect noted. rr5 22:52 20:30 NIHSS Score: 6 rr5 rr5 22:52 19:15 Musculoskeletal: Circulation, motion, and sensation intact. Capillary rr5 refill < 3 seconds, rr5 01/21 00:28 11 19:15 Presenting complaint: EMS states: we were called out for a patient rr5 found at the rickshaw driver passenger side not talking, not saying anything just a head knod. vitally stable, pulse is on the lower side 48-50's. no clear history. last seen normal 4pm. rr5
[2019-01-20 22:17] VITALS: TEMP 98.3
[2019-01-20 22:19] VITALS: BP 115/70; O2SAT 98
--- OUTSIDE RECORDS SUMMARY | 2019-01-21 07:17 | XMS REPORT ---
:1990 [facility] Address [address] [place] [address] Care Team Providers Name Role Phone Unavailable Unavailable Unavailable Problems This patient has no known problems. Allergies, Adverse Reactions, Alerts This patient has no known allergies or adverse reactions. Medications This patient has no known medications.
--- NOTE | 2019-01-21 08:38 | EKG ---
Test Date: 2019-01-20 Test Time: 19:43:14 Block Chopper Hand: RUSSELL MEASUREMENT RESULTS: Intervals: Rate: 49 MI: 108 QRSD: 80 QT: 464 QTc: 419 Preston: P: 23 MI: 108 QRS: 39 T: 15 INTERPRETIVE STATEMENTS: Sinus bradycardia with short MI Otherwise normal ECG Compared to ECG 07/30/1999 08:17:00 Short MI interval now present Electronically Signed On 01-21-19 08:37:43 SENIOR MECHANICAL DESIGN ENGINEER by Sy Huggins
== END 2019-01-20 21:56 | disposition home or self-care (01) ==
LOC: ER 19:08
DX: R45.86 Emotional lability (principal); F17.210 Nicotine dependence, cigarettes, uncomplicated
CPT/HCPCS: 36415; 70450; 71045; 80048; 80076; 80307; 81003; 81025; 82947; 85025; 85610; 85730; 93005; 99285

== ENCOUNTER 2020-12-01 09:48 | Emergency (ER) | payer OTHER, SELFPAY ==
[2020-12-01] MEDS ORDERED: ONDANSETRON 4 MG/2 ML VIAL ONE (11:06)
[2020-12-01] MEDS ORDERED: CLINDAMYCIN 600MG/D5W 600 MG/50 ML BAG IV ONE (11:06)
[2020-12-01] MEDS ORDERED: MORPHINE 4 MG/ML SYR ONE (11:06)
[2020-12-01 11:11] LABS: Absolute Lymphocytes (CBC) 1.6 K/uL (0.7-4.9); Basophils % 0.6 % (0-1.3); Hematocrit 40.2 % (36.0-45.0); Lymphocytes % 17.5 % (15.3-44.8); MPV 9.3 fL (7.6-11.3); RBC Red Blood Cell Count 4.39 M/uL (3.86-4.86)
[2020-12-01 11:20] LABS: Urine Blood Negative (Negative); Urine Glucose Negative (Negative); Urine Protein Negative (Negative); Urine Specific Gravity 1.025 (1.005-1.030); Urine pH 5.5 (5.0-7.0)
--- NOTE | 2020-12-01 11:26 | RAD REPORT ---
EXAM DESCRIPTION: CTFacial Bones W Con Mpr12/01/2020 11:12 am CLINICAL HISTORY: Left facial pain and swelling COMPARISON: None. TECHNIQUE: Computed axial tomography of the face obtained with coronal and sagittal reconstruction. 50 cc Isovue-[address] scans are performed using dose optimization technique as appropriate and may include automated exposure control or mA/KV adjustment according to patient size. FINDINGS: Edema is present within the subcutaneous tissues left cheek. An abscess is not seen. Lucen cies surround several left posterior maxillary teeth The parotid and submandibular glands appear unremarkable. The parapharyngeal fat is clear. Fluid within the sinuses is not noted. Mild mucoperiosteal thickening maxillary sinuses IMPRESSION: Edema within the subcutaneous tissues of the left cheek consistent with cellulitis Lucencies surround several left posterior maxillary teeth likely abscesses .
[2020-12-01 11:32] LABS: ALT/SGPT 18 U/L (12-78); AST/SGOT 13 U/L (15-37); Albumin 3.8 g/dL (3.4-5.0); Alkaline Phosphatase 64 U/L (45-117); BUN Blood Urea Nitrogen 10 mg/dL (7-18); Bicarbonate 25 mmol/L (21-32); Bilirubin Direct < 0.1 mg/dL (0-0.2); Bilirubin Total 0.1 mg/dL (0.2-1.0); Glucose Level 89 mg/dL (74-106); Lipase 86 U/L (73-393); Potassium 4.1 mmol/L (3.5-5.1); Protein, Total 7.4 g/dL (6.4-8.2); Sodium Level 143 mmol/L (136-145)
[2020-12-01] MEDS ORDERED: KETOROLAC 30 MG/ML INJ ONE (12:19)
--- NOTE | 2020-12-01 12:35 | ER ---
Nurse's Notes [facility] Name: Bertha Sanches Age: 29 yrs Sex: Female : 1990 Arrival Date: 12/01/2020 Time: 09:50 Bed 9 Private MD: Diagnosis: Cellulitis of face;Other specified disorders of teeth and supporting structures Presentation: 12/01 10:01 Chief complaint: Patient states: L sided teeth pain since last week. Swelling to L side ll1 of jaw for 1 day. No known fever at home. Coronavirus screen: Client denies travel out of the [place] in the last 14 days. At this time, the client does not indicate any symptoms associated with coronavirus-19. Ebola Screen: Patient denies travel to an Ebola-affected area in the 21 days before illness onset. Initial Sepsis Screen: Does the patient meet any 2 criteria? HR > 90 bpm. No. Patient's initial sepsis screen is negative. Does the patient have a suspected source of infection? Yes: Other: dental pain/infection. Risk Assessment: Do you want to hurt yourself or someone else? Patient reports no desire to harm self or others. Onset of symptoms was November 25, 2020. 10:01 Method Of Arrival: Ambulatory ll1 10:01 Acuity: JAY 3 ll1 Triage Assessment: 10:04 General: Appears in no apparent distress. Behavior is calm, cooperative, appropriate ll1 for age. Pain: Complains of pain in L face Pain currently is 10 out of 10 on a pain scale. Quality of pain is described as aching. EENT: Reports pain in L face/teeth. Neuro: No deficits noted. Cardiovascular: No deficits noted. Respiratory: No deficits noted. DATA CENTER ENGINEER: 12:51 LMP N/A - Irregular menses ap3 Historical: - Allergies: 10:03 No Known Drug Allergies; ll1 - PMHx: 10:03 None; ll1 - PSHx: 10:03 None; ll1 - Immunization history:: Client reports receiving the 2nd dose of the Covid vaccine, Flu vaccine is up to date. - Social history:: Smoking status: Patient reports the use of cigarette tobacco products, smokes one-half pack cigarettes per day, Reported history of juuling and/or vaping. Screenin:13 Abuse screen: Denies threats or abuse. Nutritional screening: No deficits noted. vg1 Tuberculosis screening: No symptoms or risk factors identified. Fall Risk No fall in past 12 months (0 pts). No secondary diagnosis (0 pts). IV access (20 points). Ambulatory Aid- None/Bed Rest/Nurse Assist (0 pts). Gait- Normal/Bed Rest/Wheelchair (0 pts) Mental Status- Oriented to own ability (0 pts). Total Mejia Fall Scale indicates No Risk (0-24 pts). Assessment: 11:00 General: Appears in no apparent distress. uncomfortable, Behavior is calm, cooperative. vg1 Pain: Complains of pain in left cheek Pain currently is 10 out of 10 on a pain scale. Quality of pain is described as throbbing, Pain began x1 week Noted to be grimacing, moaning. Neuro: Level of Consciousness is awake, alert, obeys commands, Oriented to person, place, time, situation. Cardiovascular: Patient's skin is warm and dry. Respiratory: Airway is patent Respiratory effort is even, unlabored. GI: Patient currently denies diarrhea, nausea, vomiting. : No signs and/or symptoms were reported regarding the genitourinary system. EENT: No signs and/or symptoms were reported regarding the EENT system. Derm: Skin is intact, is healthy with good turgor. Musculoskeletal: Swelling present in left cheek. 12:24 Reassessment: Patient appears in no apparent distress at this time. No changes from vg1 previously documented assessment. Patient and/or family updated on plan of care and expected duration. Pain level reassessed. Patient is alert, oriented x 3, equal unlabored respirations, skin warm/dry/pink. Vital Signs: 10:01 BP 125 / 76; Pulse 99; Resp 17; Temp 99.4; Pulse Ox 100% ; Weight 63.5 kg; Height 4 ft. ll1 11 in. (149.86 cm); Pain 10/10; 11:13 BP 107 / 59; Pulse 80; Resp 16; Pulse Ox 100% ; vg1 12:26 BP 112 / 58; Pulse 65; Resp 16; Pulse Ox 99% ; vg1 10:01 Body Mass Index 28.28 (63.50 kg, 149.86 cm) ll1 ED Course: 09:50 Patient arrived in ED. am2 09:56 [facility] cp 09:56 Chauncey Bennett MD is Attending Physician. cp 10:01 Arm band placed on. ll1 10:03 Triage completed. ll1 10:12 Duc Donovan MD is Attending Physician. cp 11:00 First set of blood cultures drawn by me. Inserted saline lock: 20 gauge in right kj1 antecubital area, using aseptic technique. Blood collected. 11:10 Nancy Dutton RN is Primary Nurse. vg1 11:10 Second set of blood cultures drawn by me. kj1 11:12 CT Facial Bones W/ Con \T\ Mpr In Process Unspecified. EDMS 11:13 Patient has correct armband on for positive identification. Bed in low position. Call vg1 light in reach. Side rails up X 1. Adult w/ patient. 12:34 Dixon Gonzalez DDS is Referral Physician. cp 12:51 No provider procedures requiring assistance completed. IV discontinued, intact, ap3 bleeding controlled, No redness/swelling at site. Pressure dressing applied. Administered Medications: 11:00 Drug: Zofran (Ondansetron) 4 mg Route: IVP; Site: right antecubital; vg1 12:01 Follow up: Response: No adverse reaction kg 11:03 Drug: morphine 4 mg Route: IVP; Site: right antecubital; vg1 12:01 Follow up: Response: No adverse reaction; Marked relief of symptoms kg 11:30 Drug: Clindamycin 600 mg Route: IVPB; Infused Over: 30 mins; Site: right antecubital; vg1 12:01 Follow up: IV Status: Completed infusion; IV Intake: 100ml kg 12:50 Follow up: IV Status: Completed infusion; IV Intake: 50ml vg1 12:01 Drug: Ketorolac 15 mg Route: IVP; Site: right antecubital; kg 12:50 Follow up: Response: No adverse reaction vg1 Intake: 12:01 IV: 100ml; Total: 100ml. kg 12:50 IV: 50ml; Total: 150ml. vg1 Outcome: 12:35 Discharge ordered by . cp 12:51 Discharged to home ambulatory. ap3 12:51 Condition: good 12:51 Discharge instructions given to patient, Instructed on discharge instructions, follow up and referral plans. Demonstrated understanding of instructions, follow-up care, medications, Prescriptions given X 2. 12:53 Patient left the ED. ap3 Signatures: Dispatcher [employer] EDMS Chauncey Sher PA PA cp Moreno, Amanda am2 Seda Blackburn RN RN ap3 Johana Gar1 Nancy Dutton RN RN vg1 Sandra Luong RN RN ll1 Jessica Love RN RN kg Corrections: (The following items were deleted from the chart) 12:24 12:23 BP 170 / 92; Pulse 86bpm; Resp 16bpm; Pulse Ox 100%; vg1 vg1
--- NOTE | 2020-12-01 12:35 | EDPHYS ---
Physician Documentation [facility] Name: Bertha Sanches Age: 29 yrs Sex: Female : 1990 Arrival Date: 12/01/2020 Time: 09:50 Bed 9 Private MD: ED Physician Duc Donovan HPI: 12/01 10:15 This 29 yrs old Female presents to ER via Ambulatory with complaints of cp Abscess, Toothache. 10:15 The patient presents with left upper teeth pain that started last week. cp 10:15 Associated signs and symptoms: Pertinent positives: left facial cheek swelling that cp started this morning, Pertinent negatives: chills, dysphagia, fever, inability to eat. 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 - Social history:: Smoking status: Patient reports the use of cigarette tobacco products, smokes one-half pack cigarettes per day, Reported history of juuling and/or vaping. ROS: 10:20 Constitutional: Negative for body aches, chills, fever, poor PO intake. cp 10:20 Eyes: Negative for injury, pain, redness, and discharge. cp 10:20 ENT: Positive for dental pain, Negative for ear pain, difficulty swallowing, difficulty handling secretions. 10:20 Respiratory: Negative for cough, shortness of breath, wheezing. 10:20 Abdomen/GI: Negative for abdominal pain, vomiting, diarrhea, constipation. 10:20 Skin: Positive for swelling, of the left side facial cheek. 10:20 Neuro: Negative for altered mental status, headache, weakness. 10:20 All other systems are negative. Exam: 10:25 Constitutional: The patient appears in no acute distress, alert, awake, non-toxic, well cp developed, well nourished, uncomfortable. 10:25 Head/face: Noted is swelling, that is moderate, of the left cheek, tenderness, that is moderate, of the left cheek. 10:25 Eyes: Pupils: equal, round, and reactive to light and accomodation, Extraocular movements: intact throughout, Conjunctiva: normal, no exudate, no injection, Sclera: no appreciated abnormality, Lids and lashes: appear normal, bilaterally. 10:25 ENT: External ear(s): are unremarkable, Ear canal(s): are normal, clear, TM's: dullness, bilaterally, Nose: is normal, Mouth: Lips: moist, Oral mucosa: pink and intact, moist, Posterior pharynx: Airway: no evidence of obstruction, patent, Tonsils: are normal in appearance, Uvula: midline, erythema, is not appreciated, exudate, is not appreciated, Dental exam: abscess, is not appreciated, dental caries, that is moderate, diffusely, fractured teeth are noted, specifically the upper left second bicuspid (#13) and upper left first molar (#14), pain, that is severe, specifically in the upper left second bicuspid (#13) and upper left first molar (#14). 10:25 Neck: ROM/movement: is normal, is supple, without pain, no range of motions limitations, no meningismus. 10:25 Chest/axilla: Inspection: normal. 10:25 Cardiovascular: Rate: normal, Rhythm: regular. 10:25 Respiratory: the patient does not display signs of respiratory distress, Respirations: normal, no use of accessory muscles, no retractions, labored breathing, is not present, Breath sounds: are clear throughout, no decreased breath sounds, no stridor, no wheezing. 10:25 Abdomen/GI: Exam negative for discomfort, distension, guarding, Inspection: abdomen cp appears normal. Vital Signs: 10:01 BP 125 / 76; Pulse 99; Resp 17; Temp 99.4; Pulse Ox 100% ; Weight 63.5 kg; Height 4 ft. ll1 11 in. (149.86 cm); Pain 10/10; 11:13 BP 107 / 59; Pulse 80; Resp 16; Pulse Ox 100% ; vg1 12:26 BP 112 / 58; Pulse 65; Resp 16; Pulse Ox 99% ; vg1 10:01 Body Mass Index 28.28 (63.50 kg, 149.86 cm) ll1 MDM: 10:12 Patient medically screened. cp 12:35 Data reviewed: vital signs, nurses notes, lab test result(s), radiologic studies, CT cp scan. 12:35 Counseling: I had a detailed discussion with the patient and/or guardian regarding: the cp historical points, exam findings, and any diagnostic results supporting the discharge/admit diagnosis, lab results, radiology results, the need for outpatient follow up, for definitive care, a dentist, to return to the emergency department if symptoms worsen or persist or if there are any questions or concerns that arise at home. Response to treatment: Pain improved with meds. Will discharge to home for continued monitoring. 12/01 10:09 Order name: Basic Metabolic Panel; Complete Time: 11:40 12/01 11:40 Interpretation: Normal except: CL 110; CA 8.4. 12/01 10:09 Order name: CBC with Diff; Complete Time: 11:19 12/01 11:20 Interpretation: Reviewed. 12/01 10:09 Order name: Hepatic Function; Complete Time: 11:40 12/01 11:40 Interpretation: Normal except: AST 13; BILIT 0.1; GLOB 3.6. 12/01 10:09 Order name: Lipase; Complete Time: 11:40 12/01 10:12 Order name: Lactate; Complete Time: 12:08 12/01 12:08 Interpretation: Within normal limits: LAC 1.1. 12/01 10:12 Order name: Procalcitonin; Complete Time: 12:41 12/01 12:41 Interpretation: Reviewed. 12/01 10:09 Order name: IV Saline Lock; Complete Time: 11:11 12/01 10:12 Order name: Blood Culture Adult (2) 12/01 10:12 Order name: CT Facial Bones W/ Con \T\ Mpr; Complete Time: 11:30 cp 12/01 11:20 Order name: Urine Dipstick-Ancillary; Complete Time: 11:30 EDMS 12/01 11:31 Interpretation: Reviewed. 12/01 10:09 Order name: Labs collected and sent; Complete Time: 11:11 cp 12/01 10:09 Order name: Urine Dipstick-Ancillary (obtain specimen); Complete Time: 11:24 cp 12/01 10:09 Order name: Urine Test (obtain specimen); Complete Time: 11:24 cp Administered Medications: 11:00 Drug: Zofran (Ondansetron) 4 mg Route: IVP; Site: right antecubital; vg1 12:01 Follow up: Response: No adverse reaction kg 11:03 Drug: morphine 4 mg Route: IVP; Site: right antecubital; vg1 12:01 Follow up: Response: No adverse reaction; Marked relief of symptoms kg 11:30 Drug: Clindamycin 600 mg Route: IVPB; Infused Over: 30 mins; Site: right antecubital; vg1 12:01 Follow up: IV Status: Completed infusion; IV Intake: 100ml kg 12:50 Follow up: IV Status: Completed infusion; IV Intake: 50ml vg1 12:01 Drug: Ketorolac 15 mg Route: IVP; Site: right antecubital; kg 12:50 Follow up: Response: No adverse reaction vg1 Disposition: 12:45 Chart complete. cp 17:46 Co-signature as Attending Physician, Duc Donovan MD I agree with the assessment and rn plan of care. Attestation: The patient's history, exam findings, diagnostics, and a summary of any interventions or procedures was reviewed in detail with Chauncey JACKSON. Disposition Summary: 12/01/20 12:35 Discharge Ordered Location: Home cp Problem: new cp Symptoms: have improved cp Condition: Stable cp Diagnosis - Cellulitis of face cp - Other specified disorders of teeth and supporting structures cp Followup: cp - With: Dixon Gonzalez DDS - When: 2 - 3 days - Reason: Recheck today's complaints Discharge Instructions: - Discharge Summary Sheet cp - Cellulitis, Adult cp - Dental Abscess cp - Dental Caries, Adult cp Forms: - Medication Reconciliation Form cp - Thank You Letter cp - Antibiotic Education cp - Prescription Opioid Use cp - Work release form ld1 Prescriptions: - Clindamycin HCl 300 mg Oral Capsule - take 1 capsule by ORAL route every 6 hours for 10 days; 40 capsule; Refills: 0, cp Product Selection Permitted - Naprosyn 500 mg Oral Tablet - take 1 tablet by ORAL route 2 times per day take with food; 20 tablet; Refills: cp 0, Product Selection Permitted Signatures: Dispatcher [employer] Duc Snyder MD MD rn Page, Corey, PA PA cp Garcia, Victoria RN RN vg1 Sandra Luong RN RN ll1 Jessica Love RN RN kg
[2020-12-01 14:22] VITALS: TEMP 99.4
[2020-12-01 14:24] VITALS: BP 112/58; O2SAT 99
== END 2020-12-01 12:53 | disposition home or self-care (01) ==
LOC: ER 09:48
DX: L03.211 Cellulitis of face (principal); F17.210 Nicotine dependence, cigarettes, uncomplicated
CPT/HCPCS: 96365; 87040 ×2; 85025; 80048; 36415; 82565; 80076; 83605; 81003; 83690; 84145; 70487; 76377; 96375; 99284; Q9967; J2405

== ENCOUNTER 2021-06-27 13:25 | Emergency (ER) | payer OTHER ==
--- OUTSIDE RECORDS SUMMARY | 2021-06-27 13:29 | XMS REPORT | Continuity of Care Document ---
:1990 Author Organization [facility] t Address [address] [place] [address] Care Team Providers Name Role Phone Joshua Ya MD Primary Care Physician Jennifer CAMPAP, C Attending Clinician Visit, Nurse Attending Clinician Unavailable Kika GUZMAN R Attending Clinician Tonny DELGADO Attending Clinician Unavailable Bijan SHOOK Attending Clinician Unavailable Payers Payer Name Policy Type Policy Number Effective Date Expiration Date [facility] [id number] 2019 [facility] MEDICAID 00:00:00 Advance Directives Directive Decision Effective Termination Comments Source Date Date Healthcare Agents on N/A [facility] FileNameRelationshipHealthcare [facility] [place] [facility] Agent Medical RelationshipCommunicationTaKettering Health Behavioral Medical CenterotherHealth Care [phone] (Mobile) Problems Condition Condition Condition Status Onset Resolution Last Treating Co mments Source Name Details Category Date Date Treatment Clinician Date Over Over Disease Active 2019-03 Univers weight weight 2-30 ity of 00:00: [address] Genital Genital Disease Active 2019-03 Univers herpes herpes 2-29 ity of 00:00: [address] Well woman Well woman Disease Active 2019-03 U nivers exam exam 2-29 ity of 00:00: [address] HSV HSV Disease Active 2019-03 Univers (herpes (herpes 2-29 ity of simplex simplex 00:00: [place] virus) virus) 00 Medical infection infection Bran ch Other Other Disease Active Univers general general 7-16 [place] of counseling [place] and advice 00 Me dical for for Branch contracept contracept glo glo management management Pain Pain Disease Active Univers pelvic pelvic 3-19 ity of 00:00: [place] [facility] Tobacco Tobacco Disease Active Univers use use 8-22 ity of disorder disorder 00:00: [place] [facility] Allergies, Adverse Reactions, Alerts Allergy Allergy Status Severity Reaction(s) Onset Inactive Treating Comm ents Source Name Type Date Date Clinician NO KNOWN Drug Active Univers ALLERGIE Class ity of S [facility] Social History Social Habit Start Date Stop Date Quantity Comments Source History of tobacco 2010-12-26 Cigarette Smoker University of use 00:00:00 [facility] Exposure to Not sure [place] of SARS-CoV-2 (event) [facility] Alcohol intake 2021-05-06 2021-05-06 Current University of 00:00:00 00:00:00 non-drinker of [facility] alcohol [place] (finding) Cigarettes smoked 2013-11-01 2013-11-01 Univers ity of current (pack per 00:00:00 00:00:00 ) - Reported Branch Cigarette 2013-11-01 2013-11-01 University of pack-years 00:00:00 00:00:00 [facility] Tobacco use and 2013-11-01 2013-11-01 Never used Universit y of exposure 00:00:00 00:00:00 [facility] Sex Ass[birth year] At [birth year] Universit y of 00:00:00 00:00:00 [facility] Smoking Status Start Date Stop Date Source Current some day smoker 2013-11-01 00:00:00 [facility] of [facility] Medications Ordered Filled Start Stop Current Ordering Indication Dosage Frequency Signature Comments Components Source Medication Medication Date Date Medication? Clinician (SIG) Name Name medroxyPROG 2021- No [id number] 150mg Univers ESTERone 2-14 02-14 ity of (DEPO-PROVE 21:15: 22:49 [place] RA) 00 :01 Medical injection Branch 150 mg medroxyPROG 2021-0 2021- No [id number] 150mg Univers ESTERone 2-14 -14 ity of (DEPO-PROVE 21:15: 22:49 [place] RA) 00 :01 Medical injection Branch 150 mg medroxyPROG 2021-0 2021- No [id number] 150mg 150 mg, Univers ESTERone 2-14 -14 Intramuscu ity of (DEPO-PROVE 21:15: 22:49 lar, [place] RA) 00 :01 [id number], Medical injection 4 doses, Branch 150 mg First dose on Mon04/26/21 at 1515, Last dose on Mon01/03/22 at 1515, Routine acyclovir 2021-0 Yes [id number] 400mg Take 1 U nivers 400 mg 2-14 tablet by ity of tablet 00:00: mouth (two) Medical times Branch daily. acyclovir 2021-0 Yes [id number] 400mg Take 1 U nivers 400 mg 2-14 tablet by ity of tablet 00:00: mouth (two) Medical times Branch daily. acyclovir 2021-0 Yes [id number] 400mg Take 1 U nivers 400 mg 2-14 tablet by ity of tablet 00:00: mouth (two) Medical times Branch daily. acyclovir 2021-0 Yes [id number] 400mg Take 1 U nivers 400 mg 2-14 tablet by ity of tablet 00:00: mouth (two) Medical times Branch daily. acyclovir 2021-0 Yes [id number] 400mg Take 1 U nivers 400 mg 2-14 tablet by ity of tablet 00:00: mouth (two) Medical times Branch daily. acyclovir 2-0 Yes [id number] 400mg Take 1 U nivers 400 mg 2-14 tablet by ity of tablet 00:00: mouth (two) Medical times Branch daily. ACYCLOVIR 2022-0 Yes [id number] TAKE 1 Un lilli 400 mg 1-10 TABLET BY ity of tablet 00:00: MOUTH TWICE A Medical DAY Branch ACYCLOVIR 2022-0 Yes [id number] TAKE 1 Un [place] 400 mg 1-10 TABLET BY ity of tablet 00:00: MOUTH TWICE A Medical DAY Branch ACYCLOVIR 2-0 Yes [id number] TAKE 1 Un [place] 400 mg 1-10 TABLET BY ity of tablet 00:00: MOUTH [place] 00 TWICE A Medical DAY Branch ACYCLOVIR 2-0 Yes [id number] TAKE 1 Un lilli 400 mg 1-10 TABLET BY ity of tablet 00:00: MOUTH [place] 00 TWICE A Medical DAY Branch ACYCLOVIR 2-0 Yes [id number] TAKE 1 Un lilli 400 mg 1-10 TABLET BY ity of tablet 00:00: MOUTH [place] 00 TWICE A Medical DAY Branch ACYCLOVIR 2-0 Yes [id number] TAKE 1 Un lilli 400 mg 1-10 TABLET BY ity of tablet 00:00: MOUTH [place] 00 TWICE A Medical DAY Branch chlorhexidi 2020-0 Yes [id number] 15mL [place] and Univers ne 0.12 % 9-22 spit out ity of mouthwash 00:00: 15 mL 2 (two) Medical times Branch daily. ketorolac 2020-0 Yes [id number] 10mg Take 1 U nivers 10 mg 9-22 tablet by ity of tablet 00:00: mouth [place] 00 every 6 Medical (six) Branch hours as needed for Pain (scale 7-10). chlorhexidi 2020-0 Yes [id number] 15mL Swish and Univers ne 0.12 % 9-22 spit out ity of mouthwash 00:00: 15 mL 2 (two) Medical times Branch daily. ketorolac 1-0 Yes [id number] 10mg Take 1 U nivers 10 mg 9-22 tablet by ity of tablet 00:00: mouth [place] 00 every 6 Medical (six) Branch hours as needed for Pain (scale 7-10). chlorhexidi 2021-0 Yes [id number] 15mL Swish and Univers ne 0.12 % 9-22 spit out ity of mouthwash 00:00: 15 mL 2 [place] (two) Medical times Branch daily. ketorolac 2021-0 Yes [id number] 10mg Take 1 U nivers 10 mg 9-22 tablet by ity of tablet 00:00: mouth [place] 00 every 6 Medical (six) Branch hours as needed for Pain (scale 7-10). chlorhexidi 2021-0 Yes [id number] 15mL Swish and Univers ne 0.12 % 9-22 spit out ity of mouthwash 00:00: 15 mL 2 [place] 00 (two) Medical times Branch daily. ketorolac 2021-0 Yes [id number] 10mg Take 1 U nivers 10 mg 9-22 tablet by ity of tablet 00:00: mouth [place] 00 every 6 Medical (six) Branch hours as needed for Pain (scale 7-10). chlorhexidi 2020-0 Yes [id number] 15mL Swish and Univers ne 0.12 % 9-22 spit out ity of mouthwash 00:00: 15 mL 2 [place] 00 (two) Medical times Branch daily. ketorolac 1-0 Yes [id number] 10mg Take 1 U nivers 10 mg 9-22 tablet by ity of tablet 00:00: mouth [place] 00 every 6 Medical (six) Branch hours as needed for Pain (scale 7-10). chlorhexidi 2020-0 Yes [id number] 15mL Swish and Univers ne 0.12 % 9-22 spit out ity of mouthwash 00:00: 15 mL 2 [place] 00 (two) Medical times Branch daily. ketorolac 2020-0 Yes [id number] 10mg Take 1 U nivers 10 mg 9-22 tablet by ity of tablet 00:00: mouth [place] 00 every 6 Medical (six) Branch hours as needed for Pain (scale 7-10). acyclovir 2019-03 Yes 800mg Take 800 Uni vers (ZOVIRAX) 2-29 mg by ity of 400 mg 13:15: mouth [place] tablet 04 daily. Medical Branch acyclovir 2019-03 Yes 800mg Take 800 Uni vers (ZOVIRAX) 2-29 mg by ity of 400 mg 13:15: mouth [place] tablet 04 daily. Medical Branch acyclovir 2019-03 Yes 800mg Take 800 Uni vers (ZOVIRAX) 2-29 mg by ity of 400 mg 13:15: mouth [place] tablet 04 daily. Medical Branch acyclovir 2019-03 Yes 800mg Take 800 Uni vers (ZOVIRAX) 2-29 mg by ity of 400 mg 13:15: mouth [place] tablet 04 daily. Medical Branch acyclovir 2019-03 Yes 800mg Take 800 Uni vers (ZOVIRAX) 2-29 mg by ity of 400 mg 13:15: mouth [place] tablet 04 daily. Medical Branch acyclovir 2020-1 Yes 800mg Take 800 Uni vers (ZOVIRAX) 2-29 mg by ity of 400 mg 13:15: mouth [place] tablet 04 daily. Medical Branch buprenorphi 2020-[address] 8 mg Univers ne-naloxone 9-24 under the ity of (SUBOXONE) 09:23: [place]. [place] 8-2 mg 26 Medical sublingual Branch film buprenorphi 2020-[address] 8 mg Univers ne-naloxone 9-24 under the ity of (SUBOXONE) 09:23: [place] 8-2 mg 26 Medical sublingual Branch film buprenorphi 2020-[address] 8 mg Univers ne-naloxone 9-24 under the ity of (SUBOXONE) 09:23: [place] 8-2 mg 26 Medical sublingual Branch film buprenorphi 2020-[address] 8 mg Univers ne-naloxone 9-24 under the ity of (SUBOXONE) 09:23: [place] 8-2 mg 26 Medical sublingual Branch film buprenorphi 2020-[address] 8 mg Univers ne-naloxone 9-24 under the ity of (SUBOXONE) 09:23: [place] 8-2 mg 26 Medical sublingual Branch film buprenorphi 2020-[address] 8 mg Univers ne-naloxone 9-24 under the ity of (SUBOXONE) 09:23: [place] 8-2 mg 26 Medical sublingual Branch film Immunizations Ordered Filled Immunization Date Status Comments [facility] e Immunization Name Name Influenza Virus 2021-02-11 Completed Universit y of Vaccine Quad IM, 00:00:00 [place] Me dical Preserv and ABX Branch Free 6 MO-64 YRS Influenza Virus 2021-02-11 Completed Universit y of Vaccine Quad IM, 00:00:00 [place] Me dical Preserv and ABX Branch Free 6 MO-64 YRS Influenza Virus 2021-02-11 Completed Universit y of Vaccine Quad IM, 00:00:00 [place] Me dical Preserv and ABX Branch Free 6 MO-64 YRS Influenza Virus 2021-02-11 Completed Universit y of Vaccine Quad IM, 00:00:00 [place] Me dical Preserv and ABX Branch Free 6 MO-64 YRS Influenza Virus 2021-02-11 Completed Universit y of Vaccine Quad IM, 00:00:00 [place] Me dical Preserv and ABX Branch Free 6 MO-64 YRS Influenza Virus 2021-02-11 Completed Universit y of Vaccine Quad IM, 00:00:00 [place] Me dical Preserv and ABX Branch Free 6 MO-64 YRS SARS-COV-2 COVID-19 2020-08-19 Completed Unive rsity of PFIZER VACCINE 00:00:00 [facility] Branch SARS-COV-2 COVID-19 2020-08-19 Completed Unive rsity of PFIZER VACCINE 00:00:00 [facility] SARS-COV-2 COVID-19 2020-08-19 Completed Unive rsity of PFIZER VACCINE 00:00:00 [facility] SARS-COV-2 COVID-19 2020-08-19 Completed Unive rsity of PFIZER VACCINE 00:00:00 [facility] SARS-COV-2 COVID-19 2020-08-19 Completed Unive rsity of PFIZER VACCINE 00:00:00 [facility] SARS-COV-2 COVID-19 2020-08-19 Completed Unive rsity of PFIZER VACCINE 00:00:00 [facility] SARS-COV-2 COVID-19 2020-07-29 Completed Unive rsity of PFIZER VACCINE 00:00:00 [facility] SARS-COV-2 COVID-19 2020-07-29 Completed Unive rsity of PFIZER VACCINE 00:00:00 [facility] SARS-COV-2 COVID-19 2020-07-29 Completed Unive rsity of PFIZER VACCINE 00:00:00 [facility] SARS-COV-2 COVID-19 2020-07-29 Completed Unive rsity of PFIZER VACCINE 00:00:00 [facility] SARS-COV-2 COVID-19 2020-07-29 Completed Unive rsity of PFIZER VACCINE 00:00:00 [facility] SARS-COV-2 COVID-19 2020-07-29 Completed Unive rsity of PFIZER VACCINE 00:00:00 [facility] Influenza Virus 2019-12-13 Completed Universit y of Vaccine Quad .5 mL 00:00:00 [facility] 6+ MO Branch Influenza Virus 2019-12-13 Completed Universit y of Vaccine Quad .5 mL 00:00:00 [place] [facility] 6+ MO Branch Influenza Virus 2019-12-13 Completed Universit y of Vaccine Quad .5 mL 00:00:00 [place] [facility] IM 6+ MO Branch Influenza Virus 2019-12-13 Completed Universit y of Vaccine Quad .5 mL 00:00:00 [place] [facility] IM 6+ MO Branch Influenza Virus 2019-12-13 Completed Universit y of Vaccine Quad .5 mL 00:00:00 [place] [facility] IM 6+ MO Branch Influenza Virus 2019-12-13 Completed Universit y of Vaccine Quad .5 mL 00:00:00 [place] [facility] IM 6+ MO Branch Influenza Virus 2019-04-08 Completed Universit y of Vaccine Quad .5 mL 00:00:00 [place] [facility] IM 6+ MO Branch Influenza Virus 2019-04-08 Completed Universit y of Vaccine Quad .5 mL 00:00:00 [place] [facility] IM 6+ MO Branch Influenza Virus 2019-04-08 Completed Universit y of Vaccine Quad .5 mL 00:00:00 [place] [facility] IM 6+ MO Branch Influenza Virus 2019-04-08 Completed Universit y of Vaccine Quad .5 mL 00:00:00 [place] [facility] IM 6+ MO Branch Influenza Virus 2019-04-08 Completed Universit y of Vaccine Quad .5 mL 00:00:00 [place] [facility] IM 6+ MO Branch Influenza Virus 2019-04-08 Completed Universit y of Vaccine Quad .5 mL 00:00:00 [place] [facility] 6+ MO Branch TDAP 2014-01-28 Completed University of 00:00:00 [facility] TDAP 2014-01-28 Completed University of 00:00:00 [facility] TDAP 2014-01-28 Completed University of 00:00:00 [facility] TDAP 2014-01-28 Completed University of 00:00:00 [facility] TDAP 2014-01-28 Completed University of 00:00:00 [facility] TDAP 2014-01-28 Completed University of 00:00:00 [facility] Influenza Virus 2013-12-31 Completed Universit y of Vaccine Quad IM 3+ 00:00:00 [facility] Influenza Virus 2013-12-31 Completed Universit y of Vaccine Quad IM 3+ 00:00:00 [facility] Influenza Virus 2013-12-31 Completed Universit y of Vaccine Quad IM 3+ 00:00:00 [facility] Influenza Virus 2013-12-31 Completed Universit y of Vaccine Quad IM 3+ 00:00:00 [facility] Branch Influenza Virus 2013-12-31 Completed Universit y of Vaccine Quad IM 3+ 00:00:00 [facility] Branch Influenza Virus 2013-12-31 Completed Universit y of Vaccine Quad IM 3+ 00:00:00 [facility] Vital Signs Vital Name Observation Time Observation Value Comments Source Systolic blood 2021-05-06 22:25:00 126 mm[Hg] Univer sity of pressure [facility] Diastolic blood 2021-05-06 22:25:00 82 mm[Hg] Unive rsity of pressure [facility] Heart rate 2021-05-06 22:25:00 84 /min Universi ty of [facility] Body temperature 2021-05-06 22:25:00 36.56 Denise Univ ersity of [facility] Respiratory rate 2021-05-06 22:25:00 16 /min Univ ersity of [facility] Body height 2021-05-06 22:25:00 149.9 cm Universi ty of [place] Medical [place] Body weight 2021-05-06 22:25:00 67.495 kg Universi ty of [place] [facility] Branch BMI 2021-05-06 22:25:00 30.05 kg/m2 Universi ty of [facility] Branch Systolic blood 2021-04-26 20:30:00 128 mm[Hg] Univer sity of pressure [facility] Branch Diastolic blood 2021-04-26 20:30:00 87 mm[Hg] Unive rsity of pressure [facility] Heart rate 2021-04-26 20:20:00 119 /min Universi ty of [facility] Body temperature 2021-04-26 20:20:00 36.78 Denise Univ ersity of [facility] Branch Respiratory rate 2021-04-26 20:20:00 18 /min Univ ersity of [facility] Branch Body height 2021-04-26 20:20:00 149.9 cm Universi ty of [facility] Body weight 2021-04-26 20:20:00 67.405 kg Universi ty of [facility] BMI 2021-04-26 20:20:00 30.01 kg/m2 Universi ty [facility] Procedures Procedure Date / Time Performed Performing Clinician Sourc e POCT TEST 2021-04-26 21:18:00 Maya Shook [facility] POCT TEST 2021-04-26 21:13:00 Maya Shook [facility] Encounters Start End Encounter Admission Attending Care Care Encounter Source Date/Time Date/Time Type Type Clinicians Facility Department ID 2021-07-29 2021-07-29 Outpatient R [facility] [id number] Univers 13:00:00 13:00:00 [id number] ity [facility] 2021-07-29 2021-07-29 Outpatient R [facility] [id number] Univers 13:00:00 13:00:00 ity [facility] 2021-06-11 2021-06-11 Telephone Jennifer [facility] [id number] Univers 00:00:00 00:00:00 Maya Thakkar BINDERY MANAGER [id number] [facility] [id number] Colin as MATERNAL [id number] Med ical & CHILD [address] [place] [address] 2021-06-10 2021-06-10 Refill Jennifer [facility] [id number] Univers 00:00:00 00:00:00 Maya Thakkar BINDERY MANAGER [id number] [facility] [id number] Colin as MATERNAL [id number] [facility] ical & CHILD [address] [place] [address] 2021-05-06 2021-05-06 Nurse Visit, JadenRmchp Nurse [facility] [id number] Univers 16:00:00 16:29:54 Visit Jesenia Delgado BINDERY MANAGER [id number] [facility] [id number] Colin as MATERNAL [id number] [facility] ical & CHILD [address] [place] [address] 2021-05-06 2021-05-06 Outpatient R KIKA NJEVIE [facility] [id number] Univers 16:00:00 16:00:00 JESENIA colbert o f [facility] 2021-04-27 2021-04-27 Telephone [facility] [id number] Univers 00:00:00 00:00:00 Maya Bijan BINDERY MANAGER [id number] [facility] [id number] Colin as MATERNAL [id number] [facility] ical & CHILD [address] [place] [address] 2021-04-26 2021-04-26 Office [facility] [id number] Univers 14:00:00 15:24:53 Visit Maya Thakkar BINDERY MANAGER [id number] ity [facility] [id number] Colin as MATERNAL [id number] Med ical & CHILD [address] [place] [address] 2021-04-26 2021-04-26 Outpatient R [facility] [id number] Univers 14:00:00 15:24:53 MAYA guerreroy o f [facility] Results Test Description Test Time Test Comments Results Result Comments Source POCT TEST 2021-04-26 21:18:00 Test Item Value Reference Range Interpretation Comme nts POCT PREG (test code = 1605) Negative On board controls acceptable with C Line (test code = 3574) Yes POCT PREG LOT # (test code = 3575) POCT PREG TEST DATE (test code = 3576) [facility] [id number] 21:18:00 Test Item Value Reference Range Interpretation Comments POCT PREG (test code = 1605) Negative On board controls acceptable with C Yes Line (test code = 3574) POCT PREG LOT # (test code = 3575) POCT PREG TEST DATE (test code = 3576) [facility] [id number] 21:13:00 Test Item Value Reference Range Interpretation Comments POCT PREG (test code = 1605) Negative On board controls acceptable with C Yes Line (test code = 3574) POCT PREG LOT # (test code = 3575) POCT PREG TEST DATE (test code = 3576) [facility] [id number] 21:13:00 Test Item Value Reference Range Interpretation Comments POCT PREG (test code = 1605) Negative On board controls acceptable with C Yes Line (test code = 3574) POCT PREG LOT # (test code = 3575) POCT PREG TEST DATE (test code = 3576) [facility] 4[facility], RFLX [id number] 08:49:42 Test Item Value Reference Range Interpretation Comments HIV 03/14 4TH GEN, RFLX CONF (test NON-REACTIVE NON-REACTIVE code = 3514) HEPATITIS PANEL, [id number] 08:49:42 Test Item Value Reference Range Interpretation Comments HEPATITIS A IgM (test NON-REACTIVE NON-REACTIVE code = 92075) HEPATITIS B CORE IgM NON-REACTIVE NON-REACTIVE (test code = 4644) HEPATITIS B SURF AG NON-REACTIVE NON-REACTIVE (test code = 2739) HEPATITIS C ANTIBODY NON-REACTIVE NON-REACTIVE (test code = 4675) INTERPRETATION (NOTE) Hepatiti s A HEPATITIS A: (test code sero logy shows no = 2552) evidence of acu te hepatitis A. INTERPRETATION (NOTE) Hepatiti s B HEPATITIS B: (test code sero logy shows no = 69275) evidence of acu te hepatitis B and no indication of exposure to hepatitis B vir us in the previous steven eight months. INTERPRETATION (NOTE) Hepatiti s C HEPATITIS C: (test code sero logy shows no = 20967) evidence of exposure to hepatitisC viru s at this time. It can take up to 12 months after exposure tothe hepatitis C vir us for antibodies to become detectab le in the bloo d in certain patients. COMPREHENSIVE METABOLIC [id number] 07:32:03 Test Item Value Reference Range Interpretation Comments GLUCOSE (test code = 112 MG/DL 70-99 H 2216) BUN (test code = 14 MG/DL -2207) CREATININE (test 0.75 MG/DL 0.60-1.30 code = 2214) eGFR (2020 CKD-EPI) 110 >60 (test code = 13443) ML/MIN/1.73 CALC BUN/CREAT (test 19 RATIO - code = 2235) SODIUM (test code = 139 MEQ/L 117-545 8924) POTASSIUM (test code 4.5 MEQ/L 3.5-5.4 = 2227) CHLORIDE (test code 100 MEQ/L 95-107 = 2214) CARBON DIOXIDE (test 20 MEQ/L 19-31 code = 2206) CALCIUM (test code = 9.8 MG/DL 8.5-10.5 2208) PROTEIN, TOTAL (test 7.7 G/DL 6.1-8.3 code = 2229) ALBUMIN (test code = 4.7 G/DL 3.5-5.2 2200) CALC GLOBULIN (test 3.0 G/DL 1.9-3.7 code = 2240) CALC A/G RATIO (test 1.6 RATIO 1.0-2.6 code = 2234) BILIRUBIN, TOTAL <0.2 MG/DL See_Comment [Automated message] (test code = 2207) The syste m which generated this result transmitted ref erence range: <=1.2. T he reference range was not used to int erpret this result as normal/abnormal . ALKALINE PHOSPHATASE 65 U/L 40-112 (test code = 220) AST (test code = 15 U/L 9-40 2217) ALT (test code = 11 U/L 5-40 UNLE SS 2218) OTHERWISE INDIC ATED, ALL TESTING PER FORMED ATCLINICAL PATH [facility], [place] [place] [address] LABORATORY DIRE CTOR: KAT ROGERS M.D. CLIA NUMBER [id number] CAP ACCREDITATION N O. [id number] CBC W/AUTO DIFF WITH [id number] 05:08:46 Test Item Value Reference Range Interpretation Comments WBC (test code = 8.0 K/UL 3.5-11.0 1001) RBC (test code = 4.31 M/UL 3.80-5.40 1002) HEMOGLOBIN (test code 13.1 G/DL 11.5-15.5 = 1003) HEMATOCRIT (test code 37.8 % 34.0-45.0 = 1004) MCV (test code = 87.7 fL 80.0-99.0 1005) MCH (test code = 30.4 PG 25.0-33.0 1006) MCHC (test code = 34.7 G/DL 31.0-36.0 1007) RDW (test code = 12.9 % 11.5-15.0 1038) NEUTROPHILS (test 68.9 % code = 1008) LYMPHOCYTES (test 21.5 % code = 1010) MONOCYTES (test code 7.5 % = 1011) EOSINOPHILS (test 1.3 % code = 1012) BASOPHILS (test code 0.5 % = 1013) IMMATURE GRANULOCYTES 0.3 % (test code = 1036) NUCLEATED RBCS (test 0.0 /100 See_Comment [Autom ated code = 1065) WBC'S message] The sy stem which generated this result transmitted reference range : 0.0. The refere nce range was not u sed to interpret th is result as normal/abnormal . PLATELET COUNT (test 312 K/UL 130-400 code = 1015) ABSOLUTE NEUTROPHILS 5.49 K/UL 1.50-7.50 (test code = 1066) ABSOLUTE LYMPHOCYTES 1.71 K/UL 1.00-4.00 (test code = 1067) ABSOLUTE MONOCYTES 0.60 K/UL 0.20-1.00 (test code = 1068) ABSOLUTE EOSINOPHILS 0.10 K/UL 0.00-0.50 (test code = 1040) ABSOLUTE BASOPHILS 0.04 K/UL 0.00-0.20 (test code = 1069) ABS IMMATURE 0.02 K/UL 0.00-0.10 GRANULOCYTES (test code = 1020) ABS NUCLEATED RBCS 0.00 K/UL 0.00-0.11 (test code = 61367)
--- NOTE | 2021-06-27 14:33 | EDPHYS ---
Physician Documentation [facility] Name: Bertha Sanches Age: 30 yrs Sex: Female : 1990 Arrival Date: 06/27/2021 Time: 13:29 Bed Waiting Private MD: JOHN Physician Chauncey Bennett HPI: 06/27 14:28 This 30 yrs old Female presents to ER via Unassigned with complaints of nicole Vomiting, Decreased Appetite, Dehydration. 14:28 The patient presents to the emergency department with nausea, vomiting, that is nicole intermittent, 5 times since the onset of symptoms. Onset: The symptoms/episode began/occurred 1 day(s) ago. Possible causes: unknown. The symptoms are aggravated by nothing. The symptoms are alleviated by nothing. Associated signs and symptoms: Pertinent positives: nausea, vomiting. Severity of symptoms: At their worst the symptoms were mild in the emergency department the symptoms are unchanged. The patient has not experienced similar symptoms in the past. Historical: - Allergies: 15:18 No Known Allergies; jb4 - Home Meds: 15:18 None [Active]; jb4 - PMHx: 15:18 None; jb4 - PSHx: 15:18 None; jb4 - Immunization history:: Adult Immunizations unknown. - Social history:: Smoking status: unknown. - Family history:: not pertinent. ROS: 14:30 Constitutional: Negative for fever, chills, and weight loss, Eyes: Negative for injury, nicole pain, redness, and discharge, ENT: Negative for injury, pain, and discharge, Neck: Negative for injury, pain, and swelling, Cardiovascular: Negative for chest pain, palpitations, and edema, Respiratory: Negative for shortness of breath, cough, wheezing, and pleuritic chest pain, Back: Negative for injury and pain, : Negative for injury, bleeding, discharge, and swelling, MS/Extremity: Negative for injury and deformity, Skin: Negative for injury, rash, and discoloration, Neuro: Negative for headache, weakness, numbness, tingling, and seizure, Psych: Negative for depression, anxiety, suicide ideation, homicidal ideation, and hallucinations, Allergy/Immunology: Negative for hives, rash, and allergies, Endocrine: Negative for neck swelling, polydipsia, polyuria, polyphagia, and marked weight changes, Hematologic/Lymphatic: Negative for swollen nodes, abnormal bleeding, and unusual bruising. 14:30 Abdomen/GI: Positive for abdominal pain, nausea and vomiting. Exam: 14:30 Constitutional: This is a well developed, well nourished patient who is awake, alert, nicole and in no acute distress. Head/Face: Normocephalic, atraumatic. Eyes: Pupils equal round and reactive to light, extra-ocular motions intact. Lids and lashes normal. Conjunctiva and sclera are non-icteric and not injected. Cornea within normal limits. Periorbital areas with no swelling, redness, or edema. ENT: Nares patent. No nasal discharge, no septal abnormalities noted. Tympanic membranes are normal and external auditory canals are clear. Oropharynx with no redness, swelling, or masses, exudates, or evidence of obstruction, uvula midline. Mucous membranes moist. Neck: Trachea midline, no thyromegaly or masses palpated, and no cervical lymphadenopathy. Supple, full range of motion without nuchal rigidity, or vertebral point tenderness. No Meningismus. Chest/axilla: Normal chest wall appearance and motion. Nontender with no deformity. No lesions are appreciated. Cardiovascular: Regular rate and rhythm with a normal S1 and S2. No gallops, murmurs, or rubs. Normal PMI, no JVD. No pulse deficits. Respiratory: Lungs have equal breath sounds bilaterally, clear to auscultation and percussion. No rales, rhonchi or wheezes noted. No increased work of breathing, no retractions or nasal flaring. Abdomen/GI: Soft, non-tender, with normal bowel sounds. No distension or tympany. No guarding or rebound. No evidence of tenderness throughout. Back: No spinal tenderness. No costovertebral tenderness. Full range of motion. Skin: Warm, dry with normal turgor. Normal color with no rashes, no lesions, and no evidence of cellulitis. MS/ Extremity: Pulses equal, no cyanosis. Neurovascular intact. Full, normal range of motion. Neuro: Awake and alert, GCS 15, oriented to person, place, time, and situation. Cranial nerves II-XII grossly intact. Motor strength 5/5 in all extremities. Sensory grossly intact. Cerebellar exam normal. Normal gait. Psych: Awake, alert, with orientation to person, place and time. Behavior, mood, and affect are within normal limits. 14:30 Musculoskeletal/extremity: DVT Exam: No signs of deep vein thrombosis. no pain, no swelling, no tenderness, negative Homans' sign noted on exam, no appreciated bluish discoloration, no erythema, no increased warmth. Vital Signs: 15:16 BP 122 / 77; Pulse 66; Resp 16; Temp 97.9; Pulse Ox 99% on R/A; jb4 MDM: 14:31 Differential diagnosis: Nonspecific abd pain, gastritis, viral gastroenteritis, nicole gastroenteritis. Data reviewed: vital signs, nurses notes. Data interpreted: lunchroom monitor: rate is 75 beats/min, rhythm is regular, Pulse oximetry: on room air is 100 %. Counseling: I had a detailed discussion with the patient and/or guardian regarding: the historical points, exam findings, and any diagnostic results supporting the discharge/admit diagnosis, the need for outpatient follow up, for definitive care, a family practitioner. 14:33 Patient medically screened. [facility] 06/27 14:34 Order name: Vital Signs [facility] 06/27 14:34 Order name: PO challenge nicole Administered Medications: No medications were administered Disposition Summary: 06/27/21 14:33 Discharge Ordered Location: Home [facility] Problem: new nicole Symptoms: have improved nicole Condition: Stable nicole Diagnosis - Nausea with vomiting, unspecified nicole Followup: nicole - With: Private Physician - When: 2 - 3 days - Reason: Recheck today's complaints, Continuance of care, Re-evaluation by your physician Discharge Instructions: - Discharge Summary Sheet nicole - Nausea and Vomiting, Adult nicole - Nausea, Adult nicole Forms: - Medication Reconciliation Form [facility] - Thank You Letter [facility] - Antibiotic Education [facility] - Prescription Opioid Use [facility] Prescriptions: - Zofran 4 mg Oral Tablet - take 1 tablet by ORAL route every 12 hours As needed; 20 tablet; Refills: 0, nicole Product Selection Permitted Signatures: Chauncey Bennett MD MD cha Bryson, James, RN RN jb4
--- NOTE | 2021-06-27 15:21 | ER ---
Nurse's Notes [facility] Name: Bertha Sanches Age: 30 yrs Sex: Female : 1990 Arrival Date: 06/27/2021 Time: 13:29 Bed Waiting Private MD: Diagnosis: Nausea with vomiting, unspecified Presentation: 06/27 15:16 Chief complaint: Patient states: I have had nausea and vomiting was just worried I was jb4 a little dehydrated. Coronavirus screen: At this time, the client does not indicate any symptoms associated with coronavirus-19. Ebola Screen: No symptoms or risks identified at this time. Initial Sepsis Screen: Does the patient meet any 2 criteria? No. Patient's initial sepsis screen is negative. Does the patient have a suspected source of infection? No. Patient's initial sepsis screen is negative. Risk Assessment: Do you want to hurt yourself or someone else? Patient reports no desire to harm self or others. Onset of symptoms was June 27, 2021. Transition of care: patient was not received from another setting of care. 15:16 Method Of Arrival: Ambulatory jb4 15:16 Acuity: JAY 4 jb4 Historical: - Allergies: 15:18 No Known Allergies; jb4 - Home Meds: 15:18 None [Active]; jb4 - PMHx: 15:18 None; jb4 - PSHx: 15:18 None; jb4 - Immunization history:: Adult Immunizations unknown. - Social history:: Smoking status: unknown. - Family history:: not pertinent. Screenin:19 Abuse screen: Denies threats or abuse. Nutritional screening: No deficits noted. jb4 Tuberculosis screening: No symptoms or risk factors identified. Fall Risk None identified. Assessment: 15:18 General: Appears in no apparent distress. uncomfortable, Behavior is calm, cooperative, jb4 appropriate for age. Pain: Denies pain. GI: Abdomen is flat, non-distended, Reports nausea, vomiting. Vital Signs: 15:16 BP 122 / 77; Pulse 66; Resp 16; Temp 97.9; Pulse Ox 99% on R/A; jb4 ED Course: 13:29 Patient arrived in ED. as 14:09 Chauncey Bennett MD is Attending Physician. [facility] 15:18 Triage completed. jb4 15:18 Arm band placed on right wrist. jb4 15:19 Patient has correct armband on for positive identification. Bed in low position. Call jb4 light in reach. Side rails up X 1. 15:19 No provider procedures requiring assistance completed. Patient did not have IV access jb4 during this emergency room visit. Administered Medications: No medications were administered Outcome: 14:33 Discharge ordered by . nicole 15:19 Discharged to home ambulatory. jb4 15:19 Condition: stable 15:19 Discharge instructions given to patient, Instructed on discharge instructions, follow up and referral plans. medication usage, Demonstrated understanding of instructions, Prescriptions given X 1. 15:19 Patient left the ED. jb4 Signatures: Chauncey Bennett MD MD cha Martinez, Amelia as Bryson, James, RN RN jb4
[2021-06-27 17:13] VITALS: BP 122/77; TEMP 97.9; O2SAT 99
== END 2021-06-27 15:19 | disposition home or self-care (01) ==
LOC: ER 13:25
DX: R11.2 Nausea with vomiting, unspecified (principal)
CPT/HCPCS: 99282

== ENCOUNTER 2021-09-17 14:26 | Emergency (ER) | payer OTHER ==
--- NOTE | 2021-09-17 14:48 | EDPHYS ---
Physician Documentation [facility] Name: Bertha Sanches Age: 30 yrs Sex: Female : 1990 Arrival Date: 09/17/2021 Time: 14:30 Bed 11 Private MD: ED Physician Juvenal Stephens HPI: 09/17 14:47 This 30 yrs old Female presents to ER via Ambulatory with complaints of Facial Swelling.kb 14:47 The patient presents with pain, redness, swelling. The problem is located in the upper kb left first molar (#14). Onset: The symptoms/episode began/occurred yesterday. Duration: The symptoms are continuous. Modifying factors: The symptoms are alleviated by nothing, the symptoms are aggravated by nothing. Associated signs and symptoms: Pertinent positives: fever, pain, redness in area, swelling, Pertinent negatives: anorexia, chills, dysphagia, inability to eat, nausea, vomiting. Severity of symptoms: At their worst the symptoms were moderate, in the emergency department the symptoms are unchanged. The patient has not experienced similar symptoms in the past. The patient has not recently seen a physician. Pt reports toothache, fever, headache that started yesterday. Woke up this morning with swelling to the left side. Historical: - Allergies: 14:44 No Known Allergies; jl7 - Home Meds: 14:44 Suboxone sublingual [Active]; jl7 - PMHx: 14:44 None; jl7 - PSHx: 14:44 None; jl7 - Immunization history:: Client reports receiving the 2nd dose of the Covid vaccine. - Social history:: Smoking status: unknown. ROS: 14:45 Respiratory: Negative for shortness of breath, cough, wheezing, and pleuritic chest kb pain. 14:45 Constitutional: Positive for fever. 14:45 ENT: Positive for dental pain, Gum pain 14:45 Neuro: Positive for headache. 14:45 All other systems are negative. Exam: 14:46 Constitutional: This is a well developed, well nourished patient who is awake, alert, kb and in no acute distress. Head/Face: Normocephalic, atraumatic. Cardiovascular: Regular rate and rhythm with a normal S1 and S2. No gallops, murmurs, or rubs. No pulse deficits. Respiratory: Respirations even and unlabored. No increased work of breathing. Talking in full sentences Skin: Warm, dry with normal turgor. Normal color. MS/ Extremity: Pulses equal, no cyanosis. Neurovascular intact. Full, normal range of motion. Neuro: Awake and alert, GCS 15, oriented to person, place, time, and situation. Moves all extremities. Normal gait. Psych: Awake, alert, with orientation to person, place and time. Behavior, mood, and affect are within normal limits. 14:46 ENT: Dental exam: abscess, that is mild, specifically in the upper left first molar (#14), dental caries, diffusely, gum swelling, that is moderate, specifically in the upper left first molar (#14), pain, that is moderate, specifically in the upper left first molar (#14), swelling to left cheek. Vital Signs: 14:47 BP 120 / 83; Pulse 93; Resp 18; Temp 98.8; Pulse Ox 98% on R/A; Weight 67.13 kg; Height em1 4 ft. 11 in. (149.86 cm); Pain 10/10; 14:47 Body Mass Index 29.89 (67.13 kg, 149.86 cm) em1 MDM: 14:32 Patient medically screened. kb 14:45 Data reviewed: vital signs, nurses notes. Data interpreted: Pulse oximetry: on room air kb is 100 %. Interpretation: normal. Counseling: I had a detailed discussion with the patient and/or guardian regarding: the historical points, exam findings, and any diagnostic results supporting the discharge/admit diagnosis, the need for outpatient follow up, a dentist, to return to the emergency department if symptoms worsen or persist or if there are any questions or concerns that arise at home. Administered Medications: 14:51 Drug: Ketorolac 30 mg Route: IM; Site: right deltoid; jl7 14:51 Drug: Augmentin (Amoxicillin-Clavulanate) 875 mg Route: PO; jl7 Disposition: 18:55 Co-signature as Attending Physician, Juvenal CAMPOS was immediately available on-site ms3 in the Emergency Department for consultation in the care of the patient.. Disposition Summary: 09/17/21 14:48 Discharge Ordered Location: Home kb Condition: Stable kb Diagnosis - Periapical abscess without sinus kb Followup: kb - With: Emergency Department - When: As needed - Reason: Worsening of condition Followup: kb - With: Private Physician - When: 2 - 3 days - Reason: Recheck today's complaints, Continuance of care, Re-evaluation by your physician Discharge Instructions: - Discharge Summary Sheet kb - Dental Pain, [id number] kb - Dental Abscess, [id number] kb Forms: - Medication Reconciliation Form kb - Thank You Letter kb - Antibiotic Education kb - Prescription Opioid Use kb Prescriptions: - Augmentin 875-125 mg Oral Tablet - take 1 tablet by ORAL route every 12 hours for 10 days; 20 tablet; Refills: 0, kb Product Selection Permitted - Ibuprofen 600 mg Oral Tablet - take 1 tablet by ORAL route every 6 hours As needed take with food; 30 tablet; kb Refills: 0, Product Selection Permitted Signatures: Renu Gar, JADEN GUZMAN-Francine Fitzpatrick RN RN jl7 Juvenal Stephens DO DO ms3 Corrections: (The following items were deleted from the chart) 14:44 14:44 Home Meds: None; ness jlJose A
--- NOTE | 2021-09-17 14:48 | ER ---
Nurse's Notes [facility] Name: Bertha Sanches Age: 30 yrs Sex: Female : 1990 Arrival Date: 09/17/2021 Time: 14:30 Bed 11 Private MD: Diagnosis: Periapical abscess without sinus Presentation: 09/17 14:43 Chief complaint: Patient states: Tooth pain x 1 day. Coronavirus screen: At this time, jl7 the client does not indicate any symptoms associated with coronavirus-19. Ebola Screen: No symptoms or risks identified at this time. Initial Sepsis Screen: Does the patient meet any 2 criteria? No. Patient's initial sepsis screen is negative. Does the patient have a suspected source of infection? No. Patient's initial sepsis screen is negative. Risk Assessment: Do you want to hurt yourself or someone else? Patient reports no desire to harm self or others. Onset of symptoms was September 16, 2021. 14:43 Method Of Arrival: Ambulatory [facility] 14:43 Acuity: JAY 4 jl7 Triage Assessment: 14:44 General: Appears in no apparent distress. uncomfortable, Behavior is calm, cooperative, jl7 appropriate for age. Pain: Complains of pain in mouth. Historical: - Allergies: 14:44 No Known Allergies; jl7 - Home Meds: 14:44 Suboxone sublingual [Active]; jl7 - PMHx: 14:44 None; jl7 - PSHx: 14:44 None; jl7 - Immunization history:: Client reports receiving the 2nd dose of the Covid vaccine. - Social history:: Smoking status: unknown. Vital Signs: 14:47 BP 120 / 83; Pulse 93; Resp 18; Temp 98.8; Pulse Ox 98% on R/A; Weight 67.13 kg; Height em1 4 ft. 11 in. (149.86 cm); Pain 10/10; 14:47 Body Mass Index 29.89 (67.13 kg, 149.86 cm) em1 ED Course: 14:30 Patient arrived in ED. am2 14:32 Renu Gar [facility]C [facility] kb 14:32 Juvenal Stephens DO is Attending Physician. kb 14:43 Francine Pederson RN is Primary Nurse. jl7 14:44 Triage completed. jl7 14:44 Arm band placed on right wrist. jl7 14:51 Patient has correct armband on for positive identification. jl7 14:51 Patient did not have IV access during this emergency room visit. jl7 Administered Medications: 14:51 Drug: Ketorolac 30 mg Route: IM; Site: right deltoid; jl7 14:51 Drug: Augmentin (Amoxicillin-Clavulanate) 875 mg Route: PO; jl7 Outcome: 14:48 Discharge ordered by . yaritza 14:52 Discharged to home ambulatory. jl7 14:52 Condition: stable 14:52 Discharge instructions given to patient, Instructed on discharge instructions, follow up and referral plans. medication usage, Demonstrated understanding of instructions, follow-up care, medications, Prescriptions given X 2. 14:52 Patient left the ED. Signatures: Renu Gar, GETTER WELDER-C GETTER WELDER-Luis Manuel Chaudhry em1 Francine Pederson RN RN jl7 Seda Eason am2 Corrections: (The following items were deleted from the chart) :44 14:44 Home Meds: None; jl7 jl7
[2021-09-17] MEDS ORDERED: AMOX/K CLAV 875 MG TAB ONE (14:54)
[2021-09-17] MEDS ORDERED: KETOROLAC 30 MG/ML INJ ONE (14:54)
[2021-09-17 14:59] VITALS: BP 120/83; TEMP 98.8; O2SAT 98
== END 2021-09-17 14:52 | disposition home or self-care (01) ==
LOC: ER 14:26
DX: K04.7 Periapical abscess without sinus (principal)

== ENCOUNTER 2022-03-08 19:30 | Emergency (ER) | payer OTHER ==
--- OUTSIDE RECORDS SUMMARY | 2022-03-08 19:33 | XMS REPORT | Continuity of Care Document ---
:1990 Author Organization [facility] t Address [address] [place] [address] Care Team Providers Name Role Phone Charisma Lozoya MD Primary Care Physician [phone] MAYA RODRIGUEZ Attending Clinician Unavailable Visit, [facility] Nurse Attending Clinician Unavailable Maya Cabral Attending Clinician [phone] JESENIA ANAND Attending Clinician Unavailable Jesenia Barboza Attending Clinician Doctor Unassigned, [place] Attending Clinician Unavailable Kathi Boyer Attending Clinician Asa Xavier DO Attending Clinician JANETH GARZON Attending Clinician Unavailable CHARISMA LOZOYA Attending Clinician Unavailable Charisma Lozoya MD Attending Clinician Yanet Hutchinson Attending Clinician YANET JOSEPH Attending Clinician Unavailable Payers Payer Name Policy Type Policy Number Effective Date Expiration Date [facility] [id number] 2019 [facility] MEDICAID 00:00:00 [facility] [id number] 2018 00:00:00 [place] OF [place] [id number] 2019 00:00:00 Problems Condition Condition Condition Status Onset Resolution Last Treating Co mments Source Name Details Category Date Date Treatment Clinician Date Over Over Disease Active 2019-03 Univers weight weight 2-30 ity of 00:00: [place] [facility] Genital Genital Disease Active 2019-03 Univers herpes herpes 2-29 ity of 00:00: [place] [facility] Well woman Well woman Disease Active 2019-03 U nivers exam exam 2-29 ity of 00:00: [place] [facility] HSV HSV Disease Active 2019-03 Univers (herpes (herpes 2-29 ity of simplex simplex 00:00: [place] virus) virus) 00 Medical infection infection Bran ch Other Other Disease Active Univers general general 7-16 [place] of counseling [place] advice 00 Me dical for for [place] contracept contracept glo glo management management Pain Pain Disease Active Univers pelvic pelvic 3-19 ity of 00:00: [facility] Tobacco Tobacco Disease Active Univers use use 8-22 ity of disorder disorder 00:00: [address] Allergies, Adverse Reactions, Alerts Allergy Allergy Status Severity Reaction(s) Onset Inactive Treating Comm ents Source Name Type Date Date Clinician NO KNOWN Drug Active Univers ALLERGIE Class ity of S [facility] Social History Social Habit Start Date Stop Date Quantity Comments Source History of tobacco 2010-12-26 Cigarette Smoker University of use 00:00:00 [facility] Exposure to 2022-01-21 2022-01-31 Not sure University SARS-CoV-2 (event) 00:00:00 13:37:00 [facility] Alcohol intake 2021-07-29 2021-07-29 Current University of 00:00:00 00:00:00 non-drinker of [facility] alcohol [place] (finding) Cigarettes smoked 2021-04-26 2021-04-26 Univers ity of current (pack per 00:00:00 00:00:00 ) - Reported Branch Cigarette 2021-04-26 2021-04-26 University of pack-years 00:00:00 00:00:00 [facility] Tobacco use and 2021-04-26 2021-04-26 Smokeless Universit y of exposure 00:00:00 00:00:00 tobacco non-user [facility] dical [place] Sex [birth year] Universit y of 00:00:00 00:00:00 [facility] Smoking Status Start Date Stop Date Source Occasional tobacco smoker 2021-04-26 00:00:00 Un iversity of [facility] Medications Ordered Filled Start Stop Current Ordering Indication Dosage Frequency Signature Comments Components Source Medication Medication Date Date Medication? Clinician (SIG) Name Name medroxyPROG 2021-03- No [id number] 150mg Univers ESTERone 04-02 ity of (DEPO-PROVE 20:30: 19:46 [place] RA) syringe 00 :00 Medical 150 mg [place] medroxyPROG 2021-03- No [id number] 150mg 150 mg, Univers ESTERone 04-02 Intramuscu ity of (DEPO-PROVE 20:30: 19:46 lar, ONCE, [place] RA) syringe 00 :00 1 dose, On Me dical 150 mg [facility] 01/31/22 at 1430, Routine medroxyPROG 2021- No [id number] 150mg Univers ESTERone 11-06 ity of (DEPO-PROVE 16:30: 15:36 [place] RA) syringe 00 :00 Medical 150 mg [place] medroxyPROG 2021- No [id number] 150mg 150 mg, Univers ESTERone 11-06 Intramuscu ity of (DEPO-PROVE 16:30: 15:36 lar, ONCE, [place] RA) syringe 00 :00 1 dose, On Me dical 150 mg [facility] 11/06/21 at 1130, Routine acyclovir 2021- No 800mg Take 800 Un lilli (ZOVIRAX) 11-06-27 mg by ity of 400 mg 10:36: 00:00 mouth [place] tablet 08 :00 daily. [facility] Branch fluconazole 2021- No [id number] 150mg Take 1 Univers (DIFLUCAN) 08-04-26 tablet by ity of 150 mg 00:00: 04:59 mouth [place] tablet 00 :00 now for 1 Medical dose. [place] medroxyPROG 2022- No [id number] 150mg Univers ESTERone 07-29 ity of (DEPO-PROVE 21:45: 22:44 [place] RA) 00 :00 Medical injection Branch 150 mg medroxyPROG 2021-0 2022- No [id number] 150mg Univers ESTERone 07-29 ity of (DEPO-PROVE 21:45: 22:44 [place] RA) 00 :00 Medical injection Branch 150 mg medroxyPROG 2021-0 2021- No [id number] 150mg Univers ESTERone 07-29 ity of (DEPO-PROVE 21:45: 15:35 [place] RA) 00 :27 Medical injection Branch 150 mg acyclovir 2021-0 Yes [id number] 400mg Take 1 U nivers 400 mg 2-14 tablet by ity of tablet 00:00: mouth (two) Medical times Branch daily. acyclovir 2021-0 Yes [id number] 400mg Take 1 U nivers 400 mg 2-14 tablet by ity of tablet 00:00: mouth (two) Medical times Branch daily. acyclovir 2021-0 Yes [id number] 400mg Take 1 U nivers 400 mg 2-14 tablet by ity of tablet 00:00: mouth (two) Medical times Branch daily. acyclovir 2021-0 Yes [id number] 400mg Take 1 U nivers 400 mg 2-14 tablet by ity of tablet 00:00: mouth (two) Medical times Branch daily. ACYCLOVIR 2021-0 Yes [id number] TAKE 1 Un lilli 400 mg 1-10 TABLET BY ity of tablet 00:00: TWICE A Medical DAY Branch ACYCLOVIR 2021-0 Yes [id number] TAKE 1 Un lilli 400 mg 1-10 TABLET BY ity of tablet 00:00: MOUTH TWICE A Medical DAY Branch ACYCLOVIR 2021-0 Yes [id number] TAKE 1 Un lilli 400 mg 1-10 TABLET BY ity of tablet 00:00: MOUTH TWICE A Medical DAY Branch ACYCLOVIR 2021-0 Yes [id number] TAKE 1 Un lilli 400 mg 1-10 TABLET BY ity of tablet 00:00: MOUTH TWICE A Medical DAY Branch chlorhexidi 2020-0 Yes [id number] 15mL Swish and Univers ne 0.12 % 9-22 spit out ity of mouthwash 00:00: 15 mL 2 [place] 00 (two) Medical times Branch daily. ketorolac 2021-0 Yes [id number] 10mg Take 1 U nivers 10 mg 9-22 tablet by ity of tablet 00:00: mouth [place] 00 every 6 Medical (six) Branch hours as needed for Pain (scale 7-10). chlorhexidi 2021-0 Yes [id number] 15mL Swish and Univers ne 0.12 % 9-22 spit out ity of mouthwash 00:00: 15 mL 2 [place] 00 (two) Medical times Branch daily. ketorolac 2021-0 Yes [id number] 10mg Take 1 U nivers 10 mg 9-22 tablet by ity of tablet 00:00: mouth [place] 00 every 6 Medical (six) Branch hours as needed for Pain (scale 7-10). chlorhexidi 2021-0 Yes [id number] 15mL Swish and Univers ne 0.12 % 9-22 spit out ity of mouthwash 00:00: 15 mL 2 [place] 00 (two) Medical times Branch daily. ketorolac 2021-0 Yes [id number] 10mg Take 1 U nivers 10 mg 9-22 tablet by ity of tablet 00:00: mouth [place] 00 every 6 Medical (six) Branch hours as needed for Pain (scale 7-10). chlorhexidi 2021-0 Yes [id number] 15mL Swish and Univers ne 0.12 % 9-22 spit out ity of mouthwash 00:00: 15 mL 2 [place] 00 (two) Medical times Branch daily. ketorolac 2021-0 Yes [id number] 10mg Take 1 U nivers 10 mg [...] Immunizations Ordered Filled Immunization Date Status Comments [facility] e Immunization Name Name Influenza Virus 2022-01-31 Completed Universit y of Vaccine Quad IM, 00:00:00 [place] Me dical Preserv and ABX Branch Free 6 MO-64 YRS Influenza Virus 2021-02-11 Completed Universit y of Vaccine Quad IM, 00:00:00 [place] Me dical Preserv and ABX Branch Free 6 MO-64 YRS Influenza Virus 2021-02-11 Completed Universit y of Vaccine Quad IM, 00:00:00 [place] Me dical Preserv and ABX Branch Free 6 MO-64 YRS Influenza Virus 2021-02-11 Completed Universit y of Vaccine Quad IM, 00:00:00 [place] Me dical Preserv and ABX Branch Free 6 MO-64 YRS Influenza Virus 2021-02-11 Completed Universit y of Vaccine Quad IM, 00:00:00 [facility] dical Preserv and ABX Branch Free 6 MO-64 YRS SARS-COV-2 COVID-19 2020-08-19 Completed Unive rsity of PFIZER VACCINE 00:00:00 [facility] SARS-COV-2 COVID-19 2020-08-19 Completed Unive rsity of PFIZER VACCINE 00:00:00 [facility] SARS-COV-2 COVID-19 2020-08-19 Completed Unive rsity of PFIZER VACCINE 00:00:00 [facility] SARS-COV-2 COVID-19 2020-08-19 Completed Unive rsity of PFIZER VACCINE 00:00:00 [facility] SARS-COV-2 COVID-19 2020-07-29 Completed Unive rsity of PFIZER VACCINE 00:00:00 [facility] SARS-COV-2 COVID-19 2020-07-29 Completed Unive rsity of PFIZER VACCINE 00:00:00 [facility] SARS-COV-2 COVID-19 2020-07-29 Completed Unive rsity of PFIZER VACCINE 00:00:00 [facility] SARS-COV-2 COVID-19 2020-07-29 Completed Unive rsity of PFIZER VACCINE 00:00:00 [facility] Influenza Virus 2019-12-13 Completed Universit y of Vaccine Quad .5 mL 00:00:00 [facility] IM 6+ MO Branch Influenza Virus 2019-12-13 Completed Universit y of Vaccine Quad .5 mL 00:00:00 [facility] 6+ MO Branch Influenza Virus 2019-12-13 Completed Universit y of Vaccine Quad .5 mL 00:00:00 [place] Medical IM 6+ MO Branch Influenza Virus 2019-12-13 Completed Universit y of Vaccine Quad .5 mL 00:00:00 [facility] 6+ MO Branch Influenza Virus 2019-04-08 Completed Universit y of Vaccine Quad .5 mL 00:00:00 [place] Medical IM 6+ MO Branch Influenza Virus 2019-04-08 Completed Universit y of Vaccine Quad .5 mL 00:00:00 [facility] 6+ MO Branch Influenza Virus 2019-04-08 Completed Universit y of Vaccine Quad .5 mL 00:00:00 [place] Medical IM 6+ MO Branch Influenza Virus 2019-04-08 Completed Universit y of Vaccine Quad .5 mL 00:00:00 [facility] 6+ MO Branch TDAP 2014-01-28 Completed University of 00:00:00 [facility] TDAP 2014-01-28 Completed University of 00:00:00 [facility] TDAP 2014-01-28 Completed University of 00:00:00 [facility] TDAP 2014-01-28 Completed University of 00:00:00 [facility] Influenza Virus 2013-12-31 Completed Universit y of Vaccine Quad IM 3+ 00:00:[address] [facility] Influenza Virus 2013-12-31 Completed Universit y of Vaccine Quad IM 3+ 00:00:[address] [facility] Influenza Virus 2013-12-31 Completed Universit y of Vaccine Quad IM 3+ 00:00:[address] [facility] Influenza Virus 2013-12-31 Completed Universit y of Vaccine Quad IM 3+ 00:00:[address] [facility] Vital Signs Vital Name Observation Time Observation Value Comments Source Systolic blood 2022-01-31 19:38:00 133 mm[Hg] Univer sity of pressure [facility] Diastolic blood 2022-01-31 19:38:00 72 mm[Hg] Unive rsity of pressure [facility] Heart rate 2022-01-31 19:38:00 72 /min Universi ty of [facility] Body temperature 2022-01-31 19:38:00 36.33 Denise Univ ersity of [facility] Respiratory rate 2022-01-31 19:38:00 18 /min Univ ersity of [facility] Body height 2022-01-31 19:38:00 149.9 cm Universi ty of [facility] Body weight 2022-01-31 19:38:00 72.303 kg Universi ty of [facility] BMI 2022-01-31 19:38:00 32.19 kg/m2 Universi ty of [facility] Branch Systolic blood 2021-11-06 15:07:00 132 mm[Hg] Univer sity of pressure [facility] Branch Diastolic blood 2021-11-06 15:07:00 84 mm[Hg] Unive rsity of pressure [facility] Heart rate 2021-11-06 15:07:00 102 /min Universi ty of [facility] Body temperature 2021-11-06 15:07:00 36.89 Denise Univ ersity of [facility] Branch Respiratory rate 2021-11-06 15:07:00 20 /min Univ ersity of [facility] Body height 2021-11-06 15:07:00 149.9 cm Universi ty of [place] [facility] Body weight 2021-11-06 15:07:00 66.679 kg Universi ty of [facility] BMI 2021-11-06 15:07:00 29.69 kg/m2 Universi ty of [facility] Procedures Procedure Date / Time Performed Performing Clinician Sourc e FLU VACC (), 2022-01-31 19:41:06 Maya Rodriguez [facility] 6 MO-64 YRS, .5ML, Medical Branc h IM, QUAD (FLUCELVAX) POCT TEST 2021-11-06 00:00:00 Jesenia Anand [facility] Encounters Start End Encounter Admission Attending Care Care Encounter Source Date/Time Date/Time Type Type Clinicians Facility Department ID 2021-01-12 Emergency [facility] [id number] Univers [facility]:35[facility] [facility] 2022-05-02 2022-05-02 Outpatient R AKINSIROSE MARIE, [facility] [id number] Univers 13:45:00 13:45:00 MAYA guerreroy o [facility] 2022-05-02 2022-05-02 Outpatient R JENNIFER, [facility] [id number] Univers 13:45:00 13:45:00 MAYA guerreroy o [facility] 2022-02-23 2022-02-23 Outpatient [facility] [id number] Cesar 10:27:13 10:27:13 1214 [facility] 2022-02-01 2022-02-01 Outpatient [facility] [id number] Cesar 14:33:09 14:33:09 1122 [facility] 2022-01-31 2022-01-31 [facility] 1.2 .840.114 [id number] [facility] 13:30:00 13:33:38 Visit Maya Rodriguez INTERN ARCHITECT [id number]. 10 [facility] [id number] Colin as MATERNAL [id number] Med ical & CHILD [address] [place] [address] 2022-01-31 2022-01-31 Outpatient R AKINSIROSE MARIE, [facility] [id number] Univers 13:30:00 13:30:00 MAYA ity o [facility] 2022-01-27 2022-01-27 Outpatient [facility] [id number] Cesar 13:47:52 13:47:52 1117 [facility] 2022-01-26 2022-01-26 Outpatient [facility] [id number] Cesar 10:09:13 10:09:13 1116 [facility] 2021-12-29 2021-12-[address] [facility] [id number] Cesar 09:39:26 09:39:26 1019 F Ayan 2021-11-06 2021-11-06 Outpatient R KIKA [facility] [id number] Univers 11:00:00 11:00:00 JESENIA colbert o fabián [facility] 2021-11-06 2021-11-06 [facility] 1.2 .840.114 [id number] Univers 11:00:00 11:00:00 Visit Radha Anandvivek R INTERN ARCHITECT [id number] ity of REGIONAL [id number] [place] as MATERNAL [phone] Med ical & CHILD [address] [place] [address] 2021-11-04 2021-11-04 Telephone [facility] 1.2.840.114 [id number] Univers 00:00:00 00:00:00 Maya C INTERN ARCHITECT [id number] ity of [facility] [id number] Colin as MATERNAL [phone] Med ical & CHILD [address] [place] [address] 2021-10-29 2021-10-29 Outpatient R [facility] [id number] Univers 13:30:00 13:30:00 ity of [facility] 2021-10-29 2021-10-29 Outpatient R KIKA [facility] [id number] Univers 13:30:00 13:30:00 RADHAVIVEK colbert lisa lockwood [facility] 2021-08-04 2021-08-04 Telephone [facility] 1.2.840.114 [id number] Univers 00:00:00 00:00:00 Maya C INTERN ARCHITECT [id number] ity of [facility] [id number] Colin as MATERNAL [id number] [facility] ical & CHILD [address] [place] [address] 2021-07-30 2021-07-30 Telephone [facility] 1.2.840.114 [id number] Univers 00:00:00 00:00:00 Maya C INTERN ARCHITECT [id number] ity of [facility] [id number] Colin as MATERNAL [id number] [facility] & CHILD [address] [place] [address] 2021-07-29 2021-07-29 [facility] [id number] Univers 14:45:00 14:45:00 Visit Maya Thakkar INTERN ARCHITECT [id number] ity of REGIONAL [id number] [place] as MATERNAL [id number] [facility] & CHILD [address] [place] [address] 2021-07-29 2021-07-29 Outpatient R JENNIFER [facility] [id number] Univers 14:45:00 14:06:33 MAYA lockwood [facility] 2021-07-29 2021-07-29 Outpatient R KIKA [facility] [id number] Univers 13:00:00 13:00:00 JESENIA lockwood [facility] 2021-06-11 2021-06-11 Telephone [facility] 1.2.840.114 [id number] Univers 00:00:00 00:00:00 Maya C INTERN ARCHITECT [id number] ity of REGIONAL [id number] Colin as MATERNAL [id number] [facility] & CHILD [address] [place] [address] 2021-06-10 2021-06-10 [facility] [id number] Univers 00:00:00 00:00:00 Maya C INTERN ARCHITECT [id number] ity of REGIONAL [id number] Colin as MATERNAL [id number] [facility] & CHILD [address] [place] [address] 2021-05-06 2021-05-06 Nurse Visit, Jaden-Rmchp Nurse [facility] 1.2 .840.114 [id number] Univers 16:00:00 16:29:54 Visit Jesenia Anand INTERN ARCHITECT [id number] ity of REGIONAL [id number] Colin as MATERNAL [id number] [facility] & CHILD [address] [place] [address] 2021-05-06 2021-05-06 Outpatient R [facility] [id number] Univers 16:00:00 16:00:00 ity of [facility] 2021-05-06 2021-05-06 Outpatient R KIKA, [facility] [id number] Univers 16:00:00 16:00:00 JESENIA guerreroy o f [facility] 2021-05-06 2021-05-06 Outpatient R JENNIFER, [facility] [id number] Univers 09:15:00 09:15:00 MAYA ity o [facility] 2021-05-04 2021-05-04 Outpatient R JENNIFER, [facility] [id number] Univers 11:00:00 11:00:00 MAYA guerreroy o [facility] 2021-04-27 2021-04-27 [facility]phone [facility] 1.2.840.114 [id number] Univers 00:00:00 00:00:00 Maya Thakkar INTERN ARCHITECT [id number] ity of [facility] [id number] Colin as MATERNAL [id number] [facility] & CHILD [address] [place] [address] 2021-04-26 2021-04-26 Office [facility] [id number] Univers 14:00:00 15:24:53 Visit Maya Thakkar INTERN ARCHITECT [id number] ity of [facility] [id number] Colin as MATERNAL [id number] [facility] & CHILD [address] [place] [address] 2021-04-26 2021-04-26 Outpatient R JENNIFER, [facility] [id number] Univers 14:00:00 15:24:53 MAYA ity o [facility] 2021-04-26 2021-04-26 Outpatient [facility] [id number] Univers 14:00:00 14:00:00 MAYA ity o [facility] 2021-04-26 2021-04-26 Carlos Enrique BARRERA 1.2.840.114 [id number] Univers 00:00:00 00:00:00 Only Unassigned, TOM 350.1.13.10 ity of [facility] [id number] Colin as [id number] [address] 2021-03-21 2021-03-21 [facility] [id number] Univers 00:00:00 00:00:00 Maya Thakkar INTERN ARCHITECT [id number] ity of [facility] [id number] Colin as MATERNAL [id number] [facility] ical & CHILD [address] [place] [address] 2021-03-19 2021-03-19 [facility] [id number] Univers 00:00:00 00:00:00 Maya Thakkar INTERN ARCHITECT [id number] ity of [id number] Colin as MATERNAL [id number] [address] 2021-02-12 2021-02-12 Refmerle [facility] [id number] Univers 00:00:00 00:00:00 Maya Thakkar INTERN ARCHITECT [id number] ity of [id number] Colin as MATERNAL [id number] [address] 2021-02-11 2021-02-11 Nurse Visit, [facility] Nurse [facility] 1.2 .840.114 [id number] Univers 09:04:30 09:26:33 Visit Maya Rodriguez INTERN ARCHITECT 350.1.13. 10 ity of [facility] [id number] Colin as MATERNAL [id number] [facility] & CHILD [address] [place] [address] 2021-02-11 2021-02-11 Outpatient R JENNIFER [facility] [id number] Univers 09:00:00 09:00:00 MAYA lockwood [facility] 2021-01-21 2021-01-21 Telephone [facility] 1.2.840.114 [id number] Univers 00:00:00 00:00:00 Kathi Cuellar INTERN ARCHITECT [id number] it y of [facility] [id number] Colin as MATERNAL [id number] [facility] ical & CHILD [address] [place] [address] 2021-01-18 2021-01-18 Refill Jennifer [facility] [id number] Univers 00:00:00 00:00:00 Maya C INTERN ARCHITECT [id number] ity of [facility] [id number] Colin as MATERNAL [id number] [facility] ical & CHILD [address] [place] [address] 2020-12-02 2020-12-02 Emergency [facility] [id number] Univers 13:00:00 16:25:00 Asa Crowell 350.1.13.10 i ty [facility] [id number] [place] [facility] [id number] [place] [id number] [place] 2020-11-26 2020-11-26 Telephone Jennifer [facility] 1.2.840.114 [id number] Univers 00:00:00 00:00:00 Maya C INTERN ARCHITECT [id number] ity of [facility] [id number] Colin as MATERNAL [id number] [facility] & CHILD [address] [place] [address] 2020-11-25 2020-11-25 Telephone Jennifer [facility] 1.2.840.114 [id number] Univers 00:00:00 00:00:00 Maya C INTERN ARCHITECT [id number] ity of [facility] [id number] Colin as MATERNAL [id number] [facility] ical & CHILD [address] [place] [address] 2020-11-19 2020-11-19 Nurse Visit, Jaden-Rmchp Nurse [facility] 1.2 .840.114 [id number] Univers 08:30:14 09:00:26 Visit Maya Rodriguez INTERN ARCHITECT 350.1.13. 10 ity of [facility] [id number] Colin as MATERNAL [id number] [facility] & CHILD [address] [place] [address] 2020-11-19 2020-11-19 Outpatient R JENNIFER [facility] [id number] Univers 08:30:00 08:30:00 MAYA ity o f [facility] 2020-11-18 2020-11-18 Outpatient R [facility] [id number] Univers 08:00:00 08:00:00 ity [facility] 2020-08-26 2020-08-26 Nurse Visit, Bobby Nurse [facility] 1.2 .840.114 [id number] Univers 07:56:09 08:26:18 Visit Maya Rodriguez INTERN ARCHITECT 350.1.13. 10 ity of [facility] [id number] Colin as MATERNAL [id number] [facility] ical & CHILD [address] [place] [address] 2020-08-26 2020-08-26 Outpatient R [facility] [id number] Univers 08:00:00 08:00:00 ity [facility] 2020-08-25 2020-08-25 Outpatient R [facility] [id number] Univers 11:00:00 11:00:00 ity [facility] 2020-08-19 2020-08-19 [facility] [id number] Univers 08:30:00 08:30:00 [facility] 2020-07-29 2020-07-29 [facility] [id number] Univers 09:50:00 09:50:00 [facility] 2020-07-29 2020-07-29 Outpatient R [facility] [id number] Univers 08:20:00 08:20:00 ity [facility] 2020-06-02 2020-06-02 Outpatient R [facility] [id number] Univers 13:00:00 13:00:[address] [facility] 2020-06-02 2020-06-02 Nurse Visit, Bobby Nurse [facility] 1.2 .840.114 [id number] Univers 09:13:44 09:37:47 Visit Maya Rodriguez INTERN ARCHITECT [id number]. 10 ity of [facility] [id number] Colin as MATERNAL [phone] [facility] ical & CHILD [address] [place] [address] 2020-06-02 2020-06-02 Outpatient R JENNIFER [facility] [id number] Univers 09:00:00 09:00:00 MAYA filemon gonzalez [facility] 2020-03-10 2020-03-10 Office Jennifer [facility] [id number] Univers 12:56:13 13:34:42 Visit Maya Thakkar INTERN ARCHITECT [id number] ity of [facility] [id number] Colin as MATERNAL [phone] [facility] & CHILD [address] [place] [address] 2020-03-10 2020-03-10 Outpatient R JENNIFER [facility] [id number] Univers 13:00:00 13:00:00 MAYA gonzalez [facility] 2020-03-09 2020-03-09 [facility] [id number] Univers 15:00:00 15:00:00 MAYA gonzalez [facility] 2019-12-13 2019-12-13 Nurse Visit, [facility] Nurse [facility] 1.2 .840.114 [id number] Univers 13:40:25 14:16:21 Visit Maya Rodriguez INTERN ARCHITECT [id number]. 10 ity [facility] [id number] Colin as MATERNAL [phone] [facility] & [address] 2019-12-13 2019-12-13 Outpatient R [facility] [id number] Univers 13:30:00 13:30:00 ity [facility] 2019-12-05 2019-12-05 Outpatient R DEVORA [facility] [id number] Univers 09:30:00 09:30:00 CHARISMA [facility] 2019-12-05 2019-12-05 [facility] 1.2.840.114 [id number] Univers 07:06:12 07:21:12 ne Visit [facility] [id number] i ty [facility] [id number] Colin as Professio [phone] [address] Office [address] 2019-11-28 2019-11-28 Office Julitaluz [facility] [id number] Univers 10:37:18 12:04:25 Visit Yanet [facility] [id number] it y [facility] [id number] Colin as Professio [phone] [address] Office [facility] 2019-11-28 2019-11-28 Outpatient R JAKE [facility] [id number] Univers 11:30:00 11:30:00 YANET ity [facility] 2019-10-02 2019-10-02 Telephone Jennifer [facility] [id number] Univers 00:00:00 00:00:00 Maya C INTERN ARCHITECT [id number] ity [facility] [id number] Colin as MATERNAL [phone] [facility] & CHILD [address] [place] [address] 2019-09-26 2019-09-26 Office Jennifer [facility] [id number] Univers 10:49:38 11:55:54 Visit Maya C INTERN ARCHITECT [id number] ity [facility] [id number] Colin as MATERNAL [phone] [facility] & CHILD [address] [place] [address] 2019-09-26 2019-09-26 Outpatient R JENNIFER [facility] [id number] Univers 11:00:00 11:00:00 MAYA colbert o f [facility] 2019-09-20 2019-09-20 Nurse Visit, Jaden-Rmchp Nurse [facility] 1.2 .840.114 [id number] Univers 14:18:21 14:56:01 Visit Maya Rodriguez C INTERN ARCHITECT [id number]. 10 ity of [facility] [id number] Colin as MATERNAL [phone] [facility] & CHILD [address] [place] [address] 2019-09-20 2019-09-20 Outpatient R [facility] [id number] Univers 14:00:00 14:00:00 ity of [facility] 2019-09-09 2019-09-09 [facility] [id number] Univers 13:00:00 13:00:00 MAYA ity o f [facility] 2019-08-27 2019-08-27 [facility]phone [facility] 1.2.840.114 [id number] Univers 00:00:00 00:00:00 Maya C INTERN ARCHITECT [id number] ity of [facility] [id number] Colin as MATERNAL [phone] [facility] & CHILD [address] [place] [address] 2019-08-26 2019-08-26 Nurse Visit, [facility] Nurse [facility] 1.2 .840.114 [id number] Univers 13:59:55 15:02:47 Visit Maya Rodriguez INTERN ARCHITECT [id number]. 10 ity of [facility] [id number] Colin as MATERNAL [phone] [facility] & [address] 2019-08-26 2019-08-26 [facility] [id number] Univers 13:30:00 13:30:00 MAYA ity o f [facility] 2019-08-23 2019-08-23 [facility] 1.2.840.114 [id number] Univers 00:00:00 00:00:00 Maya C INTERN ARCHITECT [id number] ity of [facility] [id number] Colin as MATERNAL [phone] [address] 2019-08-20 2019-08-20 Outpatient R JENNIFER [facility] [id number] Univers 08:15:00 08:15:00 MAYA ity o f [facility] 2019-04-11 2019-04-11 Telephone [facility] 1.2.840.114 [id number] Univers 00:00:00 00:00:00 Maya C INTERN ARCHITECT [id number] ity of [facility] [id number] Colin as MATERNAL [phone] [facility] & [address] 2019-04-10 2019-04-10 Telephone [facility] 1.2.840.114 [id number] Univers 00:00:00 00:00:00 Maya Thakkar INTERN ARCHITECT [id number] ity of [facility] [id number] Colin as MATERNAL [phone] [facility] & CHILD [address] [place] [address] 2019-04-08 2019-04-08 Office Angelrose marie [facility] [id number] Univers 08:48:12 10:01:21 Visit Maya Bijan INTERN ARCHITECT [id number] ity of [facility] [id number] Colin as MATERNAL [phone] [facility] & CHILD [address] [place] [address] 2019-04-04 2019-04-04 Nurse Visit, Bobby Nurse [facility] 1.2 .840.114 [id number] Univers 10:12:22 10:41:10 Visit Maya Rodriguez INTERN ARCHITECT 350.1.13. 10 ity of [facility] [id number] Colin as MATERNAL [phone] [facility] & [address] Results Test Description Test Time Test Comments Results Result Comments Source POCT TEST 2021-11-06 15:12:00 Test Item Value Reference Range Interpretation Comme nts POCT PREG (test code = 1605) Negative On board controls acceptable with C Line (test code = 3574) Yes POCT PREG LOT # (test code = 3575) POCT PREG TEST DATE (test code = 3576) [facility]AT, [id number] 19:27:51 Test Item Value Reference Range Interpretation Comments GONORRHEA, NAAT NEGATIVE NEGATIVE IMPORTA NT NOTICE: SEE (test code = [place] [address]) [email or web address] heCobasUrineKit Note: Assay methodology is nucleic acid amplification b y inspector optical instrument m ediated amplification ( TMA) utilizing the A ptima Combo 2 Assay. CHLAMYDIA, NAAT NEGATIVE NEGATIVE IMPORTA NT NOTICE: SEE (test code = [place] [address]) [email or web address] heCobasUrineKit Note: Assay methodology is nucleic acid amplification b y inspector optical instrument m ediated amplification ( TMA) utilizing the A ptima Combo 2 Assay. HIV 1/2 4TH GEN, RFLX [id number] 03:48:51 Test Item Value Reference Range Interpretation Comments HIV 1/2 4TH GEN, NON-REACTIVE NON-REACTIVE UNLESS OTH ERWISE RFLX CONF (test INDICATED, A LL TESTING code = 3514) PERFORMED [facility] NICAL PATHOLOGY [facility]. [address] [place] [id number] [place] [address] DIRECTOR: KAT SCOTT M.D. IA NUMBER [id number] CAP ACCREDITATION N O. [id number] HEPATITIS PANEL, [id number] 03:48:51 Test Item Value Reference Range Interpretation Comments HEPATITIS A IgM (test NON-REACTIVE NON-REACTIVE code = 48910) HEPATITIS B CORE IgM NON-REACTIVE NON-REACTIVE (test code = 4644) HEPATITIS B SURF AG NON-REACTIVE NON-REACTIVE (test code = 2739) HEPATITIS C ANTIBODY NON-REACTIVE NON-REACTIVE (test code = 4675) INTERPRETATION (NOTE) Hepatitis A HEPATITIS A: (test code sero logy shows no = 2552) evidence of acu te hepatitis A. INTERPRETATION (NOTE) Hepatitis B HEPATITIS B: (test code sero logy shows no = 90878) evidence of acu te hepatitis B and no indication of exposure to hepatitis B vir us in the previous steven eight months. INTERPRETATION (NOTE) Hepatitis C HEPATITIS C: (test code sero logy shows no = 13034) evidence of exposure to hepatitisC viru s at this time. I t can take up to 12 months after exposure tothe hepatitis C vir us for antibodies to become detectab le in the blood in certain patient s. [id number] 02:30:21 Test Item Value Reference Range Interpretation Comments RPR RESULT (test code = NON-REACTIVE NON-REACTIVE 3501) RPR TITER (test code = 3500) NOT INDIC. TITER NOT INDIC. HIV 1/2 4TH GEN, RFLX [id number] 08:49:42 Test Item Value Reference Range Interpretation Comments HIV 1/2 4TH GEN, RFLX CONF (test NON-REACTIVE NON-REACTIVE code = 3514) HEPATITIS PANEL, [id number] 08:49:42 Test Item Value Reference Range Interpretation Comments HEPATITIS A IgM (test NON-REACTIVE NON-REACTIVE code = 09266) HEPATITIS B CORE IgM NON-REACTIVE NON-REACTIVE (test code = 4644) HEPATITIS B SURF AG NON-REACTIVE NON-REACTIVE (test code = 2739) HEPATITIS C ANTIBODY NON-REACTIVE NON-REACTIVE (test code = 4675) INTERPRETATION (NOTE) Hepatitis A HEPATITIS A: (test code sero logy shows no = 2552) evidence of acu te hepatitis A. INTERPRETATION (NOTE) Hepatitis B HEPATITIS B: (test code sero logy shows no = 44940) evidence of acu te hepatitis B and no indication of exposure to hepatitis B vir us in the previous steven eight months. INTERPRETATION (NOTE) Hepatitis C HEPATITIS C: (test code sero logy shows no = 03829) evidence of exposure to hepatitisC viru s at this time. I t can take up to 12 months after exposure tothe hepatitis C vir us for antibodies to become detectab le in the blood in certain patient s. COMPREHENSIVE METABOLIC [id number] 07:32:03 Test Item Value Reference Range Interpretation Comments GLUCOSE (test code = 112 MG/DL 70-99 H 2216) BUN (test code = 14 MG/DL 6-20 2207) CREATININE (test 0.75 MG/DL 0.60-1.30 code = 2214) eGFR (2020 CKD-EPI) 110 >60 (test code = 07762) ML/MIN/1.73 CALC BUN/CREAT (test 19 RATIO 6-28 code = 2235) SODIUM (test code = 139 MEQ/L 820-724 7067) POTASSIUM (test code 4.5 MEQ/L 3.5-5.4 = 2227) CHLORIDE (test code 100 MEQ/L 95-107 = 221) CARBON DIOXIDE (test 20 MEQ/L 19-31 code = 2206) CALCIUM (test code = 9.8 MG/DL 8.5-10.5 2208) PROTEIN, TOTAL (test 7.7 G/DL 6.1-8.3 code = 222) ALBUMIN (test code = 4.7 G/DL 3.5-5.2 2200) CALC GLOBULIN (test 3.0 G/DL 1.9-3.7 code = 2240) CALC A/G RATIO (test 1.6 RATIO 1.0-2.6 code = 2234) BILIRUBIN, TOTAL <0.2 MG/DL See_Comment [Automated message] (test code = 220) The syste m which generated this result transmitted ref erence range: <=1.2. T he reference range was not used to int erpret this result as normal/abnormal . ALKALINE PHOSPHATASE 65 U/L 40-112 (test code = 2203) AST (test code = 15 U/L 9-40 2218) ALT (test code = 11 U/L 5-40 UNLESS OTH ERWISE 2219) INDICATED, ALL TESTING PERFORM ED [facility], [place]. [address] [place] [address] [facility] DIRECTOR: KAT SCOTT M.D. CLIA NUMBER [id number] CAP ACCREDITATION N O. [id number] CBC W/AUTO DIFF WITH [id number] 05:08:46 Test Item Value Reference Range Interpretation [...] = 1036) NUCLEATED RBCS (test 0.0 /100 WBC'S See_Comment [Aut omated code = 1065) message] The sy stem which generated this [...] RBCS 0.00 K/UL 0.00-0.11 (test code = 10360)
--- NOTE | 2022-03-08 20:31 | ER ---
Nurse's Notes [facility] Name: Bertha Sanches Age: 31 yrs Sex: Female : 1990 Arrival Date: 03/08/2022 Time: 19:35 Bed IW4 Private MD: Diagnosis: Acute gingivitis;Dental caries, unspecified Presentation: 03/08 20:00 Chief complaint: Patient states: C/o left sided jaw pain, dizziness, and H/A, states ll3 pain is 10/10. Coronavirus screen: Vaccine status: Patient reports receiving the 2nd dose of the covid vaccine. Ebola Screen: No symptoms or risks identified at this time. Initial Sepsis Screen: Does the patient meet any 2 criteria? No. Patient's initial sepsis screen is negative. Does the patient have a suspected source of infection? No. Patient's initial sepsis screen is negative. Risk Assessment: Do you want to hurt yourself or someone else? Patient reports no desire to harm self or others. Onset of symptoms was March 06, 2022. 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 - Social history:: Smoking status: Patient reports the use of cigarette tobacco products, denies chronic smoking, but will smoke occasionally. Screenin:20 [facility] ED Fall Risk Assessment (Adult) History of falling in the last 3 months, ll3 including since admission No falls in past 3 months (0 pts) Confusion or Disorientation No (0 pts) Intoxicated or Sedated No (0 pts) Impaired Gait No (0 pts) Mobility Assist Device Used No (0 pt) Altered Elimination No (0 pt) Score/Fall Risk Level 0 - 2 = Low Risk Oriented to surroundings, Maintained a safe environment. Abuse screen: Denies threats or abuse. Denies injuries from another. Nutritional screening: No deficits noted. Tuberculosis screening: No symptoms or risk factors identified. Vital Signs: 20:00 BP 132 / 83; Pulse 77; Resp 16; Temp 99.3(O); Pulse Ox 100% on R/A; Weight 71.67 kg ll3 (R); Height 4 ft. 11 in. (149.86 cm) (R); Pain 10/10; 21:21 BP 123 / 83; Pulse 78; Resp 16; Pulse Ox 99% on R/A; ll3 20:00 Body Mass Index 31.91 (71.67 kg, 149.86 cm) ll3 ED Course: 19:35 Patient arrived in ED. 2 19:53 Dakota Alatorre PA is PHCP. [facility] 19:53 Duc Donovan MD is Attending Physician. [facility] 20:02 Triage completed. 3 20:02 Arm band placed on. 3 20:30 Dixon Gonzalez DDS is Referral Physician. m 21:20 Patient has correct armband on for positive identification. Adult w/ patient. ll3 21:20 No provider procedures requiring assistance completed. Patient did not have IV access ll3 during this emergency room visit. Administered Medications: 21:15 Drug: Ondansetron 4 mg Route: PO; ll3 21:20 Follow up: Response: Medication administered at discharge. 3 21:17 Not Given (Duplicate Order): Clindamycin 600 mg IM once [facility] 21:18 Drug: morphine 4 mg Route: IM; Site: right deltoid; ll3 21:20 Follow up: Response: Medication administered at discharge. 3 21:18 Drug: Clindamycin 600 mg Route: PO; ll3 21:20 Follow up: Response: Medication administered at discharge. 3 Medication: 21:21 VIS not applicable for this client. ll3 Outcome: 20:30 Discharge ordered by . [facility] 21:20 Discharged to home ambulatory, with family. 3 21:20 Condition: stable 21:20 Discharge instructions given to patient, family, Instructed on discharge instructions, follow up and referral plans. medication usage, Demonstrated understanding of instructions, follow-up care, medications, Prescriptions given X 4. 21:22 Patient left the ED. 3 Signatures: Dakota Alatorre PA PA jmm Alexander, Jessica [facility] Thee River RN RN 3
--- NOTE | 2022-03-08 20:31 | EDPHYS ---
Physician Documentation [facility] Name: Bertha Sanches Age: 31 yrs Sex: Female : 1990 Arrival Date: 03/08/2022 Time: 19:35 Bed IW4 Private MD: JOHN Physician Duc Donovan HPI: 03/08 19:53 This 31 yrs old Female presents to ER via Ambulatory with complaints of Jaw Pain, jmm Toothache, Dizziness, Ear Pain. 19:53 The patient presents with pain, swelling. Onset: The symptoms/episode began/occurred jmm gradually. Duration: The symptoms are continuous. Modifying factors: The symptoms are alleviated by nothing, the symptoms are aggravated by nothing. Is a 31-year-old female the presents emerged part with complaints of left upper molar dental pain and swelling which radiates to the left jaw and the left ear. Patient states pain is so intense that it makes her dizzy. Patient has been taking amoxicillin and ketorolac with no relief. Patient states this is similar to previous dental infections she has had. 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 - Social history:: Smoking status: Patient reports the use of cigarette tobacco products, denies chronic smoking, but will smoke occasionally. ROS: 19:53 Constitutional: Negative for fever, chills, and weight loss. jmm 19:53 Respiratory: Negative for shortness of breath, cough, wheezing, and pleuritic chest pain, Abdomen/GI: Negative for abdominal pain, nausea, vomiting, diarrhea, and constipation. 19:53 ENT: Positive for dental pain, ear pain, Gum pain 19:53 Neuro: Positive for dizziness. 19:53 All other systems are negative. Exam: 19:53 Constitutional: This is a well developed, well nourished patient who is awake, alert, jmm and in no acute distress. Head/Face: atraumatic. Eyes: EOMI, no conjunctival erythema appreciated 19:53 Neck: Trachea midline, Supple Chest/axilla: Normal chest wall appearance and motion. Cardiovascular: Regular rate and rhythm. No edema appreciated Respiratory: Normal respirations, no respiratory distress appreciated Abdomen/GI: Non distended Back: Normal ROM Skin: General appearance color normal MS/ Extremity: Moves all extremities, no obvious deformities appreciated, no edema noted to the lower extremities Neuro: Awake and alert Psych: Behavior is normal, Mood is normal, Patient is cooperative and pleasant 19:53 ENT: Mouth: Dental exam: gum swelling, that is moderate, specifically in the upper left second bicuspid (#13), upper left first molar (#14) and upper left second molar (#15). Vital Signs: 20:00 BP 132 / 83; Pulse 77; Resp 16; Temp 99.3(O); Pulse Ox 100% on R/A; Weight 71.67 kg ll3 (R); Height 4 ft. 11 in. (149.86 cm) (R); Pain 10/10; 21:21 BP 123 / 83; Pulse 78; Resp 16; Pulse Ox 99% on R/A; ll3 20:00 Body Mass Index 31.91 (71.67 kg, 149.86 cm) ll3 MDM: 19:54 Patient medically screened. [place] 20:28 Data reviewed: vital signs, nurses notes. Counseling: I had a detailed discussion with rachele the patient and/or guardian regarding: the historical points, exam findings, and any diagnostic results supporting the discharge/admit diagnosis, the need for outpatient follow up, to return to the emergency department if symptoms worsen or persist or if there are any questions or concerns that arise at home. ED course: Patient is alert nontoxic in appearance in the ED. Symptoms appear consistent with gingivitis and dental pain. Patient will be prescribed antibiotics and advised to follow-up with oral surgery for further evaluation. Patient otherwise given strict return precautions. Patient understood and agrees to plan of care.. Administered Medications: 21:15 Drug: Ondansetron 4 mg Route: PO; 3 21:20 Follow up: Response: Medication administered at discharge. 3 21:17 Not Given (Duplicate Order): Clindamycin 600 mg IM once [place] 21:18 Drug: morphine 4 mg Route: IM; Site: right deltoid; 3 21:20 Follow up: Response: Medication administered at discharge. 3 21:18 Drug: Clindamycin 600 mg Route: PO; ll3 21:20 Follow up: Response: Medication administered at discharge. ll3 Disposition: 22:52 Co-signature as Attending Physician, Duc Donovan MD. rn Disposition Summary: 03/08/22 20:30 Discharge Ordered Location: Home [place] Condition: Stable [place] Diagnosis - Acute gingivitis [place] - Dental caries, unspecified [place] Followup: [place] - With: Dixon Gonzalez DDS - When: 2 - 3 days - Reason: Recheck today's complaints, Continuance of care, Re-evaluation by your physician Discharge Instructions: - Discharge Summary Sheet [place] - Dental Caries, Adult [place] - Dental Pain [place] Forms: - Medication Reconciliation Form [place] - Thank You Letter [place] - Antibiotic Education [place] - Prescription Opioid Use [place] Prescriptions: - Peridex 0.12 % Mucous Membrane mouthwash - place 15 milliliter by MUCOUS MEMBRANE route 2 times per day after brushing [place] teeth, swish in mouth for 30 seconds then spit out; 1 bottle; Refills: 0, Product Selection Permitted - Clindamycin HCl 300 mg Oral Capsule - take 1 capsule by ORAL route every 6 hours for 10 days; 40 capsule; Refills: 0, [place] Product Selection Permitted - Diclofenac Sodium 75 mg Oral Tablet Sustained Release - take 1 tablet by ORAL route 2 times per day; 30 tablet; Refills: 0, Product [place] Selection Permitted - ondansetron 4 mg Oral - take 4 milligrams by SUBLINGUAL route every 8 hours; 15 tablet; Refills: 0, [place] Product Selection Permitted Signatures: Dakota Alatorre PA PA [place] Duc Donovan MD MD rn [place], Lynsea, RN RN 3
[2022-03-08] MEDS ORDERED: ONDANSETRON 4 MG (ODT) TAB ONE (21:12)
[2022-03-08] MEDS ORDERED: MORPHINE 4 MG/ML SYR ONE (21:12)
[2022-03-08 21:49] VITALS: TEMP 99.3
[2022-03-08 21:50] VITALS: BP 123/83; O2SAT 99
== END 2022-03-08 21:22 | disposition home or self-care (01) ==
LOC: ER 19:30
DX: K02.9 Dental caries, unspecified (principal); K05.00 Acute gingivitis, plaque induced
CPT/HCPCS: 96372; 99283; Q0162

== ENCOUNTER 2024-04-08 11:42 | Emergency (ER) | payer OTHER ==
--- OUTSIDE RECORDS SUMMARY | 2024-04-08 11:47 | XMS REPORT | Continuity of Care Document ---
Author Name Unknown Address [address] [facility] [address] [place] [address] [facility] thconnect Address [address] [facility] 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 Name Role Phone Dayan Shelton Primary Care Physician [phone] Maya Cabral Attending Clinician + [facility], [facility] Unava ilMAYA Carvalho Attending Clinician Unavail able JESENIA ANAND Attending Clinician Unavailab Jesenia Cherry Attending Clinician + [phone] Doctor Unassigned, [place] Attending Clinician U Kathi Humphrey Attending Clinician [phone] Asa Xavier DO Attending Clinician [phone] JANETH GARZON Attending Clinician Unavail able CHARISMA LOZOYA Attending Clinician Charisma Chang MD Attending Clinician + [phone] Yanet Hutchinson Attending Clinician [phone] YANET JOSEPH Attending Clinician Unavailable Payers Payer Name Policy Type Policy Number Effective Date Expirati on Date Source [employer] MEDICAID [id number] 2019 00:00:00 [facility] [id number] 2018 00:00:00 MEDICAID OF [place] [id number] 2019 00:00:00 Problems Condition Name Condition Details Condition Category Status Onset Date Resolution Date Last Treatment Date Treating Clinician Comments Source Obesity (BMI 30-39.9) Obesity (BMI 30-39.9) Disease Active 2019-03 2 00:00: 00 [facility] Over weight Over weight Disease Active 2019-03 00:00: 00 [facility] Genital herpes Genital herpes Disease Active 2019-03 00:00: 00 [facility] Well woman exam Well woman exam Disease Active 2019-03 00:00: 00 [facility] HSV (herpes simplex virus) infection HSV (herpes simplex virus) infection Disease Active 2019-03 00:00: 00 [facility] Other general counseling and advice for contracept glo management Other general counseling and advice for contracept glo management Disease Active 7-16 00:00: 00 [facility] Pain pelvic Pain pelvic Disease Active 3-19 00:00: 00 [facility] Tobacco use disorder Tobacco use disorder Disease Active 8- 00:00: 00 [facility] Allergies, Adverse Reactions, Alerts Allergy Name Allergy Type Status Severity Reaction(s) Onset Date Inactive Date Treating Clinician Comments Source none (Not Checked) Propensi ty to adverse reaction to drug Active - 00:00: 00 Cesar Botello NO KNOWN ALLERGIE S Drug Class Active [facility] Social History Social Habit Start Date Stop Date Quantity Comments Source History of tobacco use 2010-12-26 00:00:00 Cigarette Smoker [facility] intake 2023-04-04 00:00:00 2023-04-04 00:00:00 Current non-drinker of alcohol (finding) [facility] Exposure to SARS-CoV-2 (event) 2022-07-08 00:00:00 2022-07-18 12:46:00 Not sure [facility] Cigarettes smoked current (pack per day) - Reported 2022-05-02 00:00:00 2022-05-02 00:00:00 [facility] Cigarette pack-years 2022-05-02 00:00:00 2022-05-02 00:00:00 [facility] Tobacco use and exposure 2022-05-02 00:00:00 2022-05-02 00:00:00 Smokeless tobacco non-user [facility] History of Social function 2021-04-26 00:00:00 2021-04-26 00:00:00 [facility] Sex Assigned At 1990 00:00:00 1990 00:00:00 [facility] Smoking Status Start Date Stop Date Source Occasional tobacco smoker 2022-05-02 00:00:00 [facility] Medications Ordered Medication Name Filled Medication Name Start Date Stop Date Current Medication? Ordering Clinician Indication Dosage Frequency Signature (SIG) Comments Components Source buprenorphi ne 12 mg-naloxone 3 mg sublingual film 12-05 00:00: 00 Yes 1mg Cesar Botello Depo-Chlorination Operator a 150 mg/mL intramuscul ar syringe 12-05 00:00: 00 Yes 1mg/mL Cesar Botello omeprazole 40 mg capsule,del ayed release 11-07 00:00: 00 Yes mg Cesar Botello buprenorphi ne 12 mg-naloxone 3 mg sublingual film 11-07 00:00: 00 Yes 1mg Cesar Botello buprenorphi ne 12 mg-naloxone 3 mg sublingual film 10-09 00:00: 00 Yes 1mg Cesar Botello buprenorphi ne 12 mg-naloxone 3 mg sublingual film 09-11 00:00: 00 Yes 1mg Cesar Mis Botello buprenorphi ne 12 mg-naloxone 3 mg sublingual film 6- 00:00: 00 Yes 1mg Cesar Botello acyclovir 400 mg tablet - 00:00: 00 Yes 1mg Cesar Botello Depo-Chlorination Operator a 150 mg/mL intramuscul ar syringe - 00:00: 00 Yes 1mg/mL Cesar Botello buprenorphi ne 12 mg-naloxone 3 mg sublingual film 0 5-07 00:00: 00 Yes 1mg Cesar Botello buprenorphi ne 12 mg-naloxone 3 mg sublingual film 4-09 00:00: 00 Yes 1mg Cesar Botello acyclovir 400 mg tablet 3-18 00:00: 00 Yes [id number] 400mg Take 1 tablet by mouth in the morning and 1 tablet in the evening. [facility] ACYCLOVIR 400 MG -18 00:00: 00 Yes Cesar Botello buprenorphi ne 12 mg-naloxone 3 mg sublingual film 3-13 00:00: 00 Yes 1mg Cesar Botello AMOX-CLAV 875-125 MG -13 00:00: 00 Yes Cesar Botello RINSE MOUTH WITH 15ML (1 CAPFUL) FOR 30 SECONDS AM AND PM AFTER TOOTHBRUSHI NG. EXPECTORATE AFTER RINSING, DO NOT SWALLOW 3-13 00:00: 00 07-25 00:00 :00 No 12 Cesar Botello buprenorphi ne 12 mg-naloxone 3 mg sublingual film 2-13 00:00: 00 Yes mg Cesar Botello TAKE 1 TABLET EVERY 6 HOURS DAILY. 2-13 00:00: 00 07-25 00:00 :00 No 4 Cesar Botello TAKE 1 STRIP TWICE A DAY 1-10 00:00: 00 07-25 00:00 :00 No 123 Cesar Botello RINSE MOUTH WITH 15ML (1 CAPFUL) FOR 30 SECONDS AM AND PM AFTER TOOTHBRUSHI NG. EXPECTORATE AFTER RINSING, DO NOT SWALLOW 0 1-10 00:00: 00 07-25 00:00 :00 No 12 Cesar Botello ACYCLOVIR 400MG 2022-03 2-30 00:00: 00 Yes Cesar Botello TRAZODONE 100 MG 2022-03 2-20 00:00: 00 Yes Cesar Botello AMOX/K CLAV [id number] 2-20 00:00: 00 Yes Cesar Botello RINSE MOUTH WITH 15ML (1 CAPFUL) FOR 30 SECONDS AM AND PM AFTER TOOTHBRUSHI NG. EXPECTORATE AFTER RINSING, DO NOT SWALLOW 2022-03 2- 00:00: 00 07-25 00:00 :00 No 12 Cesar Botello TAKE 1 CAPSULE BY MOUTH EVERY MORNING DAILY. 2022-03 2- 00:00: 00 07-25 00:00 :00 No 40 Cesar Botello TAKE 1 STRIP TWICE A DAY 2022-03 2 00:00: 00 07-25 00:00 :00 No 123 Cesar Botello SMZ/TMP DS [id number] 1- 00:00: 00 Yes Cesar Botello TAKE 1 STRIP TWICE A DAY 2022-03 00:00: 00 07-25 00:00 :00 No 123 Cesar Botello TAKE 1 STRIP TWICE A DAY 2022-03 0-25 00:00: 00 07-25 00:00 :00 No 123 Cesar Botello TAKE 1 STRIP TWICE A DAY 2022-03 0-24 00:00: 00 07-25 00:00 :00 No 123 Cesar Botello TAKE 1 TABLET BY MOUTH EVERYDAY AT BEDTIME 2022-03 0-13 00:00: 00 Yes Cesar Botello AMOX/K CLAV [id number] 0-03 00:00: 00 Yes Cesar Botello TAKE 1 STRIP TWICE A DAY 2022-03 0-03 00:00: 00 07-25 00:00 :00 No 123 Cesar Botello RINSE MOUTH WITH 15ML (1 CAPFUL) FOR 30 SECONDS AM AND PM AFTER TOOTHBRUSHI NG. EXPECTORATE AFTER RINSING, DO NOT SWALLOW 2022-03 0-03 00:00: 00 07-25 00:00 :00 No 12 Cesar Botello ACYCLOVIR 400MG - 00:00: 00 Yes [id number] Cesar Botello TAKE 3 TABS TWICE A DAY FOR 5 DAYS - 00:00: 00 07-25 00:00 :00 No Cesar Botello TAKE 1 STRIP TWICE A DAY - 00:00: 00 07-25 00:00 :00 No 123 Cesar Botello CHLORHEX GLU 0.12% SHANI 10-31 00:00: 00 Yes 120 Cesar Botello USE 5ML EVERY 2 HOURS NEEDED. 10-31 00:00: 00 07-25 00:00 :00 No 2 Cesar Botello TRAZODONE 100MG 10-26 00:00: 00 Yes Cesar Botello ACYCLOVIR 400MG 10-18 00:00: 00 Yes [id number] Cesar Botello TAKE 1 STRIP TWICE A DAY 10-15 00:00: 00 07-25 00:00 :00 No 123 Cesar Botello TAKE 1 STRIP TWICE A DAY 10-04 00:00: 00 07-25 00:00 :00 No 123 Cesar Botello OMEPRAZOLE 40MG 10-03 00:00: 00 Yes Cesar Botello TAKE 1 TABLET DAILY. 09-21 00:00: 00 07-25 00:00 :00 No 20 Cesar Botello TAKE 1 TABLET TWICE DAILY WITH FOOD. 09-21 00:00: 00 07-25 00:00 :00 No [id number] Cesar Botello AMOX/K CLAV [id number] 7-05 00:00: 00 Yes Cesar Botello ACYCLOVIR 400MG 09-14 00:00: 00 Yes Cesar Botello TAKE 1-2 TABS EVERY 8 HOURS NEEDED 09-14 00:00: 00 07-25 00:00 :00 No 125 Cesar Botello USE 5ML EVERY 2 HOURS NEEDED. 09-14 00:00: 00 07-25 00:00 :00 No 2 Cesar Botello INSTILL 3 DROPS IN RIGHT EAR 3-4 TIMES DAILY. 09-14 00:00: 00 07-25 00:00 :00 No Cesar Botello TAKE 1 TABLET DAILY. 09-14 00:00: 00 07-25 00:00 :00 No 20 Cesar Botello TAKE 1 TABLET BY MOUTH EVERY 12 HOURS 09-06 00:00: 00 Yes Cesar Botello BUPREN/NALO X MIS 8-2MG 09-06 00:00: 00 Yes Cesar Botello RINSE MOUTH WITH 15ML (1 CAPFUL) FOR 30 SECONDS AM AND PM AFTER TOOTHBRUSHI NG. EXPECTORATE AFTER RINSING, DO NOT SWALLOW 09-06 00:00: 00 07-25 00:00 :00 No 12 Cesar Botello TAKE 1 CAPSULE BY MOUTH EVERY MORNING DAILY. 08-24 00:00: 00 07-25 00:00 :00 No 40 Cesar Botello TAKE 1 STRIP THREE TIMES A DAY 08-24 00:00: 00 07-25 00:00 :00 No 82 Cesar Botello ACYCLOVIR 08-16 00:00: 00 Yes 400 Cesar Botello TRAZODONE 08-06 00:00: 00 Yes Cesar Botello OMEPRAZOLE 08-06 00:00: 00 Yes 40 Cesar Botello AMOXICILLIN 08-02 00:00: 00 Yes Cesar Botello IBUPROFEN 08-02 00:00: 00 Yes Cesar Botello TAKE 1 CAPSULE BY MOUTH EVERY MORNING DAILY. 07-20 00:00: 00 07-25 00:00 :00 No 40 Cesar Botello ACYCLOVIR 07-19 00:00: 00 Yes Cesar Botello medroxyPROG ESTERone (DEPO-PROVE RA) syringe 150 mg 07-18 19:45: 00 06-18 19:44 :00 No [id number] 150mg [facility] BUPREN/NALO X MIS 8-2MG 07-14 00:00: 00 Yes Ceasr Botello TRAZODONE 5- 00:00: 00 Yes Cesar Botello OMEPRAZOLE 5 00:00: 00 Yes 40 Cesar Botello ACYCLOVIR - 00:00: 00 Yes Cesar Botello TAKE 1 STRIP THREE TIMES A DAY 06-15 00:00: 00 07-25 00:00 :00 No 82 Cesar Botello TRAZODONE 2023-0 4-04 00:00: 00 Yes Cesar Botello TAKE 1 TABLET BY MOUTH AT BEDTIME 3-21 00:00: 00 07-25 00:00 :00 No 100 Cesar Botello OMEPRAZOLE 3-20 00:00: 00 Yes Cesar Botello ACYCLOVIR 400 mg tablet 3-13 00:00: 00 05-26 00:00 :00 No [id number] TAKE 1 TABLET BY MOUTH TWICE A DAY [facility] TRAZODONE 3-03 00:00: 00 Yes Cesar Botello SERTRALINE 3- 00:00: 00 Yes 50 Cesar Botello medroxyPROG ESTERone (DEPO-PROVE RA) syringe 150 mg 2- 21:15: 00 05-02 20:39 :00 No [id number] 150mg [facility] TAKE 1 TABLET BY MOUTH EVERY DAY AT BEDTIME - 00:00: 00 07-25 00:00 :00 No 50 Cesar Botello TAKE 1 TABLET BY MOUTH AT BEDTIME 2-09 00:00: 00 07-25 00:00 :00 No 100 Cesar Botello TRAZODONE 2-08 00:00: 00 Yes Cesar Botello BUPREN/NALO X MIS 8-2MG 2-08 00:00: 00 Yes Cesar Botello TAKE 1 TABLET EVERY 12 HOURS DAILY. 2-08 00:00: 00 07-25 00:00 :00 No [id number] Cesar Botello ACYCLOVIR 1-07 00:00: 00 Yes Cesar Botello TAKE 1 CAPSULE EVERY MORNING DAILY. 1- 00:00: 00 07-25 00:00 :00 No 40 Cesar Botello CHLORHEX GLU SHANI 0.12% 2021-03 00:00: 00 Yes Cesar Botello DICLOFENAC DR 2021-03 00:00: 00 Yes Cesar Botello ONDANSETRON 2021-03 00:00: 00 Yes 4 Cesar Botello CLINDAMYCIN 2021-03 00:00: [address] 1 TABLET UNDER THE TOUGUE EVERY 8 HOURS FOR NAUSEA. 2021-03 00:00: 00 Yes Cesar Botello TAKE 1 TABLET BY MOUTH TWICE A DAY 2021-03 00:00: 00 Yes Cesar Botello AFTER BRUSHING TEETH USE 15 ML TO SWISH MOUTH FOR 30 SECONDS AND SPIT. USE 2 TIMES A DAY. 2021-03 00:00: 00 Yes Cesar Botello TAKE 1 CAPSULE BY MOUTH EVERY 6 HOURS FOR 10 DAYS. 2021-03 00:00: 00 Yes Cesar Botello TAKE ONE (1) CAPSULE(S) BY MOUTH EVERY SIX HOURS FOR 10 DAYS. 2021-03 00:00: 00 Yes 300 Cesar Botello ACYCLOVIR 400MG 2021-03 00:00: 00 Yes Cesar Botello Dose Unknown 2021-03 00:00: 00 Yes Cesar Botello ESCITALOPRA M 10MG 2021-03 00:00: 00 Yes Cesar Botello Dose Unknown 2021-03 00:00: 00 Yes Cesar Botello TAKE 1 TABLET BY MOUTH FOUR TIMES A DAY 2021-03 00:00: 00 Yes Cesar Botello Dose Unknown 2021-03- 00:00: 00 Yes Cesar Botello BUPREN/NALO X MIS 8-2MG 2021-03 2 00:00: 00 Yes Cesar Botello Dose Unknown 2021-03 2- 00:00: 00 Yes Cesar Botello Dose Unknown 2021-03- 00:00: 00 Yes Cesarhelena Botello Dose Unknown 2021-03- 00:00: 00 Yes Cesarhelena Botello Dose Unknown 2021-03 2- 00:00: 00 Yes Cesar Mis Botello Dose Unknown 2021-03- 00:00: 00 Yes Cesarhelena Botello Dose Unknown 2021-03 2- 00:00: 00 Yes Cesar Botello ACYCLOVIR TAB 400MG 2021-03 2- 00:00: 00 Yes 400 Cesar Botello Dose Unknown 2021-03 2- 00:00: 00 Yes Cesar Botello SWISH AND SPIT OUT 15 ML 2 (TWO) TIMES DAILY. 2021-03 2- 00:00: 00 Yes Cesar Botello IBUPROFEN TAB 600MG 2021-03 2- 00:00: 00 Yes Cesar Botello SERTRALINE TAB 50MG 2021-03 2- 00:00: 00 Yes 4 Cesar Botello Dose Unknown 2021-03 2- 00:00: 00 Yes Cesar Botello TAKE 1 CAPSULE BY MOUTH FOUR TIMES A DAY 2021-03 2- 00:00: 00 Yes Cesar Botello Dose Unknown 2021-03 2- 00:00: 00 Yes Cesar Botello AMOX/K CLAV TAB [id number] 2- 00:00: 00 Yes Cesar Botello TAKE 1/2 TABLET BY MOUTH EVERY DAY FOR 1 WEEK THEN INCREASE TO 1 TABLET DAILY 2021-03 2- 00:00: 00 Yes Cesar Botello IBUPROFEN TAB 800MG 2021-03 2- 00:00: 00 Yes Cesar Botello NAPROXEN TAB 500MG 2021-03 2- 00:00: 00 Yes 25 Cesar Botello Dose Unknown 2021-03 2- 00:00: 00 Yes Cesar Botello SERTRALINE TAB 25MG 2021-03 2- 00:00: 00 Yes Cesar Botello Dose Unknown 2021-03 2- 00:00: [address] 1 ITEM UNDER THE TONGUE TWICE A DAY 2021-03 2 00:00: 00 Yes Cesar Botello CLINDAMYCIN CAP 300MG 2021-03 2- 00:00: 00 Yes Cesar Botello ONDANSETRON TAB 4MG 2021-03 2- 00:00: 00 Yes Rajan Botello TAKE 1 TABLET AT BEDTIME NEEDED. 2021-03 2- 00:00: 00 07-25 00:00 :00 No Cesar Botello Dose Unknown 2021-03 2- 00:00: 00 07-25 00:00 :00 No Cesar Botello ZOLOFT TAB 25MG 2021-03 2- 00:00: 00 07-25 00:00 :00 No 25 Cesar Botello ACYCLOVIR 2021-03 2- 00:00: 00 Yes Cesar Botello medroxyPROG ESTERone (DEPO-PROVE RA) syringe 150 mg 2021-03 20:30: 00 01-31 19:46 :00 No [id number] 150mg [facility] Dose Unknown 2021-03 00:00: 00 Yes Cesar Botello Dose Unknown 2021-03 00:00: 00 07-25 00:00 :00 No Cesar Botello TAKE 1 TABLET BY MOUTH EVERY DAY AT BEDTIME 2021-03 00:00: 00 07-25 00:00 :00 No 50 Cesar Botello BUPREN/NALO X MIS 8-2MG 2021-03 00:00: 00 Yes Cesar Botello IBUPROFEN 2021-03 00:00: 00 Yes Cesar Botello AMOX/K CLAV [id number] 1-16 00:00: 00 Yes Cesar Botello CHLORHEX GLU SHANI 0.12% 2021-03 00:00: 00 Yes Cesar Botello BUPREN/NALO X MIS 8-2MG 2021-03 0-21 00:00: 00 Yes Cesar Botello BUPREN/NALO X MIS 8-2MG 2021-03 0-18 00:00: 00 Yes Cesar Botello ACYCLOVIR 2021-03 0-02 00:00: 00 Yes 400 Cesar Botello CLINDAMYCIN 9-14 00:00: 00 Yes 300 Cesar Botello ACYCLOVIR 9-03 00:00: 00 Yes 400 Cesar Botello BUPREN/NALO X MIS 8-2MG 8-31 00:00: 00 Yes Cesar Botello OMEPRAZOLE 8-31 00:00: 00 Yes 40 Cesar Botello medroxyPROG ESTERone (DEPO-PROVE RA) syringe 150 mg 11-06 16:30: 00 11-06 15:36 :00 No [id number] 150mg [facility] acyclovir (ZOVIRAX) 400 mg tablet 11-06 10:36: 08 11-06 00:00 :00 No 800mg Take 800 mg by mouth daily. [facility] ZOLOFT 0 8-24 00:00: 00 Yes 25 Cesar Botello Dose Unknown 0 8- 00:00: 00 Yes 600 Cesar Botello &lt 2021-0 8- 00:00: 00 Yes Cesar Botello TAKE ONE (1) CAPSULE(S) BY MOUTH EVERY SIX HOURS FOR 10 DAYS. 0 8- 00:00: 00 Yes 300 Cesar Botello &lt 2021-0 8- 00:00: 00 Yes 10 Cesar Botello &lt 2021-0 - 00:00: 00 Yes Cesar Botello &lt 2021-0 8- 00:00: 00 Yes 150 Cesar Botello OMEPRAZOLE CAP 40MG 0 - 00:00: 00 Yes Cesar Botello Dose Unknown 0 8- 00:00: 00 Yes Cesar Botello Dose Unknown 0 8- 00:00: 00 Yes Cesar Mis Botello Dose Unknown 0 8-08 00:00: 00 Yes Cesar Botello Dose Unknown 0 8-08 00:00: 00 Yes 400 Cesar Botello buprenorphi ne 8 mg-naloxone 2 mg sublingual film 0 8-03 00:00: 00 Yes 1mg Cesar Botello omeprazole 40 mg capsule,del ayed release 0 8-03 00:00: 00 Yes 1mg Cesar Botello TAKE 1 TABLET BY MOUTH EVERY 6 HOURS NEEDED FOR PAIN 0 8-03 00:00: 00 Yes 400 Cesar Botello &lt 2021-0 8-03 00:00: 00 Yes 600 Cesar Botello Dose Unknown 0 8-03 00:00: 00 Yes 150 Cesar Botello Dose Unknown 0 8-03 00:00: 00 Yes Cesar Botello &lt 2022-0 8-03 00:00: 00 Yes Cesar Botello &lt 2022-0 8-03 00:00: 00 Yes Cesar Botello &lt 2022-0 8-03 00:00: 00 Yes Cesar Botello Zoloft 25 mg tablet 2021-0 7-26 00:00: 00 Yes 1mg Cesar Botello TAKE 1 TABLET BY MOUTH FOUR TIMES A DAY 2021-0 10-05 00:00: 00 Yes 600 Cesar Botello &lt 2021-0 10-05 00:00: 00 Yes Cesar Botello Dose Unknown 0 10-05 00:00: 00 Yes 25 Cesar Botello &lt 2021-0 10-04 00:00: 00 Yes 150 Cesar Botello &lt 2021-0 10-04 00:00: 00 Yes Cesar Botello &lt 2021-0 10-04 00:00: 00 Yes Cesar Botello Dose Unknown 0 10-04 00:00: 00 Yes 400 Cesar Botello &lt 2021-0 09-23 00:00: 00 Yes 400 Cesar Botello Dose Unknown 0 09-23 00:00: 00 Yes 150 Cesar Botello TAKE 1 CAPSULE BY MOUTH FOUR TIMES A DAY 2021-0 09-23 00:00: 00 Yes 150 Cesar Botello TAKE 1 TABLET BY MOUTH THREE TIMES A DAY 2021-0 09-23 00:00: 00 Yes Cesar Botello TAKE 1 TABLET DAILY. 0 09-23 00:00: 00 Yes 50 Cesar Botello IBUPROFEN 2021-0 09-17 00:00: 00 Yes 600 Cesar Botello buprenorphi ne 8 mg-naloxone 2 mg sublingual film 2021-0 09-15 00:00: 00 Yes 1mg Cesar Botello TAKE 1 TABLET (0.5 MG) BY MOUTH PER DAY NEEDED 2021-0 09-15 00:00: 00 Yes 5 Cesar Botello &lt 2021-0 09-15 00:00: 00 Yes 400 Cesar Botello TAKE 1 TABLET BY MOUTH EVERY 6 HOURS NEEDED FOR PAIN 2021-0 09-15 00:00: 00 Yes 400 Cesar Botello &lt 2-0 7 00:00: 00 Yes 150 Cesar Botello TAKE 1 CAPSULE BY MOUTH FOUR TIMES A DAY 2021-0 09-15 00:00: 00 Yes 500 Cesar Botello TAKE 5ML BY MOUTH EVERY 6 HOURS NEEDED FOR COUGH 2021-0 09-14 00:00: 00 Yes Cesar Mis Botello &lt 2021-0 7-05 00:00: 00 Yes Cesar Botello &lt 2-0 6- 00:00: 00 Yes Cesar Botello TAKE 1 TABLET BY MOUTH TWICE A DAY 09-03 00:00: 00 Yes Cesar Botello Zoloft 25 mg tablet 08-26 00:00: 00 Yes 1mg Cesar Botello Bactrim DS 800 mg-160 mg tablet 08-26 00:00: 00 Yes 1mg Cesar Botello TAKE 5ML BY MOUTH EVERY 6 HOURS NEEDED FOR COUGH 08-26 00:00: 00 Yes Cesar Botello SWISH AND SPIT OUT 15 ML 2 (TWO) TIMES DAILY. 08-26 00:00: 00 Yes Cesar Botello buprenorphi ne 8 mg-naloxone 2 mg sublingual film 08-18 00:00: 00 Yes 1mg Cesar Botello Dose Unknown 08-18 00:00: 00 Yes Cesar Botello TAKE 1 TABLET BY MOUTH FOUR TIMES A DAY 08-18 00:00: 00 Yes Cesar Botello TAKE 1 TABLET BY MOUTH ONCE NOW FOR 1 DOSE. 08-18 00:00: 00 Yes Cesar Botello &lt 08-18 00:00: 00 Yes Cesar Botello &lt 08-18 00:00: 00 Yes Cesar Botello TAKE 1 CAPSULE BY MOUTH FOUR TIMES A DAY 08-18 00:00: 00 Yes Cesar Botello TAKE 1 TABLET (0.5 MG) BY MOUTH PER DAY NEEDED 08-18 00:00: 00 Yes Cesar Botello Dose Unknown 08-06 00:00: 00 Yes Cesar Botello ibuprofen 400 mg tablet 08-05 00:00: 00 Yes 1mg Cesar Botello bromphenira mine-pseudo ephedrine-D M 2 mg-30 mg-10 mg/5 mL oral syrup 08-05 00:00: 00 Yes 5mg/5 mL Cesar Botello FLUCONAZOLE 08-04 00:00: 00 Yes 150 Cesar Botello fluconazole (DIFLUCAN) 150 mg tablet 08-04 00:00: 00 08-05 04:59 :00 No [id number] 150mg Take 1 tablet by mouth once now for 1 dose. [facility] medroxyPROG ESTERone (DEPO-PROVE RA) injection 150 mg -19 21:45: 00 11-06 15:35 :27 No [id number] 150mg [facility] buprenorphi ne 8 mg-naloxone 2 mg sublingual film 5-12 00:00: 00 Yes 1mg Cesar Botello Dose Unknown - 00:00: 00 Yes Cesar Botello Dose Unknown 07-21 00:00: 00 Yes Cesar Botello Dose Unknown 5- 00:00: 00 Yes Cesar Botello Dose Unknown 5- 00:00: 00 Yes Cesar Botello ondansetron HCl 4 mg tablet 0 4-30 00:00: 00 Yes 1mg Cesar Botello acyclovir 400 mg tablet 4-15 00:00: 00 Yes 1mg Cesar Botello buprenorphi ne 8 mg-naloxone 2 mg sublingual film 0 4-13 00:00: 00 Yes 1mg Cesar Botello ACYCLOVIR 0 4-08 00:00: 00 Yes 400 Cesar Botello buprenorphi ne 8 mg-naloxone 2 mg sublingual film 0 3-14 00:00: 00 Yes 1mg Cesar Botello ACYCLOVIR 0 3-06 00:00: 00 Yes 400 Cesar Botello buprenorphi ne 8 mg-naloxone 2 mg sublingual film 0 2-28 00:00: 00 Yes 1mg Cesar Botello buprenorphi ne 8 mg-naloxone 2 mg sublingual film 0 2-14 00:00: 00 Yes 1mg Cesar Botello acyclovir 400 mg tablet 0 2-14 00:00: 00 - 00:00 :00 No [id number] 400mg Take 1 tablet by mouth 2 (two) times daily. [facility] buprenorphi ne 8 mg-naloxone 2 mg sublingual film 0 2-07 00:00: 00 Yes 1mg Cesar Botello buprenorphi ne 8 mg-naloxone 2 mg sublingual film -31 00:00: 00 Yes 1mg Cesar Botello buprenorphi ne 8 mg-naloxone 2 mg sublingual film 24 00:00: 00 Yes 1mg Cesar Botello buprenorphi ne 8 mg-naloxone 2 mg sublingual film 15 00:00: 00 Yes 1mg Cesar Botello ACYCLOVIR 400 mg tablet - 00:00: 00 Yes [id number] TAKE 1 TABLET BY MOUTH TWICE A DAY [facility] chlorhexidi ne 0.12 % mouthwash 12-02 00:00: 00 Yes [id number] 15mL Swish and spit out 15 mL 2 (two) times daily. [facility] ketorolac 10 mg tablet 12-02 00:00: 00 Yes [id number] 10mg Take 1 tablet by mouth every 6 (six) hours as needed for Pain (scale 7-10). [facility] acyclovir (ZOVIRAX) 400 mg tablet 2019-03 13:15: 04 Yes 800mg Take 800 mg by mouth daily. [facility] buprenorphi ne-naloxone (SUBOXONE) 8-2 mg sublingual film 12-04 09:23: [address] 8 mg under the tongue. [facility] Immunizations Ordered Immunization Name Filled Immunization Name Date Status Comments Source Tdap Tdap 2023-03-01 00:00:00 Completed Cesar Botello Spikevax 12+ ( formula) Spikevax 12+ ( formula) 2023-03-01 00:00:00 Completed Cesar Botello HPV9 HPV9 2023-01-30 00:00:00 Completed Cesar Mis Botello HPV9 2022-05-30 00:00:00 Completed [facility] HPV9 2022-05-30 00:00:00 Completed [facility] HPV9 2022-05-02 00:00:00 Completed [facility] HPV9 2022-05-02 00:00:00 Completed [facility] HPV9 2022-05-02 00:00:00 Completed [facility] HPV9 2022-05-02 00:00:00 Completed [facility] Influenza Virus Vaccine Quad IM, Preserv and ABX Free 6 MO-64 YRS 2022-01-31 00:00:00 Completed [facility] Influenza Virus Vaccine Quad IM, Preserv and ABX Free 6 MO-64 YRS 2022-01-31 00:00:00 Completed [facility] Influenza Virus Vaccine Quad IM, Preserv and ABX Free 6 MO-64 YRS 2022-01-31 00:00:00 Completed [facility] Influenza Virus Vaccine Quad IM, Preserv and ABX Free 6 MO-64 YRS 2022-01-31 00:00:00 Completed [facility] Influenza Virus Vaccine Quad IM, Preserv and ABX Free 6 MO-64 YRS 2022-01-31 00:00:00 Completed [facility] Influenza Virus Vaccine Quad IM, Preserv and ABX Free 6 MO-64 YRS 2021-02-11 00:00:00 Completed [facility] Influenza Virus Vaccine Quad IM, Preserv and ABX Free 6 MO-64 YRS 2021-02-11 00:00:00 Completed [facility] Influenza Virus Vaccine Quad IM, Preserv and ABX Free 6 MO-64 YRS 2021-02-11 00:00:00 Completed [facility] Influenza Virus Vaccine Quad IM, Preserv and ABX Free 6 MO-64 YRS 2021-02-11 00:00:00 Completed [facility] Influenza Virus Vaccine Quad IM, Preserv and ABX Free 6 MO-64 YRS 2021-02-11 00:00:00 Completed [facility] Influenza Virus Vaccine Quad IM, Preserv and ABX Free 6 MO-64 YRS 2021-02-11 00:00:00 Completed [facility] Influenza Virus Vaccine Quad IM, Preserv and ABX Free 6 MO-64 YRS 2021-02-11 00:00:00 Completed [facility] Influenza Virus Vaccine Quad IM, Preserv and ABX Free 6 MO-64 YRS 2021-02-11 00:00:00 Completed [facility] SARS-COV-2 COVID-19 PFIZER VACCINE 2020-08-19 00:00:00 Completed [facility] SARS-COV-2 COVID-19 PFIZER VACCINE 2020-08-19 00:00:00 Completed [facility] SARS-COV-2 COVID-19 PFIZER VACCINE 2020-08-19 00:00:00 Completed [facility] SARS-COV-2 COVID-19 PFIZER VACCINE 2020-08-19 00:00:00 Completed [facility] SARS-COV-2 COVID-19 PFIZER VACCINE 2020-08-19 00:00:00 Completed [facility] SARS-COV-2 COVID-19 PFIZER VACCINE 2020-08-19 00:00:00 Completed [facility] SARS-COV-2 COVID-19 PFIZER VACCINE 2020-08-19 00:00:00 Completed [facility] SARS-COV-2 COVID-19 PFIZER VACCINE 2020-08-19 00:00:00 Completed [facility] SARS-COV-2 COVID-19 PFIZER VACCINE 2020-07-29 00:00:00 Completed [facility] SARS-COV-2 COVID-19 PFIZER VACCINE 2020-07-29 00:00:00 Completed [facility] SARS-COV-2 COVID-19 PFIZER VACCINE 2020-07-29 00:00:00 Completed [facility] SARS-COV-2 COVID-19 PFIZER VACCINE 2020-07-29 00:00:00 Completed [facility] SARS-COV-2 COVID-19 PFIZER VACCINE 2020-07-29 00:00:00 Completed [facility] SARS-COV-2 COVID-19 PFIZER VACCINE 2020-07-29 00:00:00 Completed [facility] SARS-COV-2 COVID-19 PFIZER VACCINE 2020-07-29 00:00:00 Completed [facility] SARS-COV-2 COVID-19 PFIZER VACCINE 2020-07-29 00:00:00 Completed [facility] Influenza Virus Vaccine Quad .5 mL IM 6+ MO 2019-12-13 00:00:00 Completed [facility] Influenza Virus Vaccine Quad .5 mL IM 6+ MO 2019-12-13 00:00:00 Completed [facility] Influenza Virus Vaccine Quad .5 mL IM 6+ MO 2019-12-13 00:00:00 Completed [facility] Influenza Virus Vaccine Quad .5 mL IM 6+ MO 2019-12-13 00:00:00 Completed [facility] Influenza Virus Vaccine Quad .5 mL IM 6+ MO 2019-12-13 00:00:00 Completed [facility] Influenza Virus Vaccine Quad .5 mL IM 6+ MO 2019-12-13 00:00:00 Completed [facility] Influenza Virus Vaccine Quad .5 mL IM 6+ MO 2019-12-13 00:00:00 Completed [facility] Influenza Virus Vaccine Quad .5 mL IM 6+ MO 2019-12-13 00:00:00 Completed [facility] Influenza Virus Vaccine Quad .5 mL IM 6+ MO 2019-04-08 00:00:00 Completed [facility] Influenza Virus Vaccine Quad .5 mL IM 6+ MO 2019-04-08 00:00:00 Completed [facility] Influenza Virus Vaccine Quad .5 mL IM 6+ MO 2019-04-08 00:00:00 Completed [facility] Influenza Virus Vaccine Quad .5 mL IM 6+ MO 2019-04-08 00:00:00 Completed [facility] Influenza Virus Vaccine Quad .5 mL IM 6+ MO 2019-04-08 00:00:00 Completed [facility] Influenza Virus Vaccine Quad .5 mL IM 6+ MO 2019-04-08 00:00:00 Completed [facility] Influenza Virus Vaccine Quad .5 mL IM 6+ MO 2019-04-08 00:00:00 Completed [facility] Influenza Virus Vaccine Quad .5 mL IM 6+ MO 2019-04-08 00:00:00 Completed [facility] TDAP 2014-01-28 00:00:00 Completed [facility] TDAP 2014-01-28 00:00:00 Completed [facility] TDAP 2014-01-28 00:00:00 Completed [facility] TDAP 2014-01-28 00:00:00 Completed [facility] TDAP 2014-01-28 00:00:00 Completed [facility] TDAP 2014-01-28 00:00:00 Completed [facility] TDAP 2014-01-28 00:00:00 Completed [facility] TDAP 2014-01-28 00:00:00 Completed [facility] Influenza Virus Vaccine Quad IM 3+ YRS 2013-12-31 00:00:00 Completed [facility] Influenza Virus Vaccine Quad IM 3+ YRS 2013-12-31 00:00:00 Completed [facility] Influenza Virus Vaccine Quad IM 3+ YRS 2013-12-31 00:00:00 Completed [facility] Influenza Virus Vaccine Quad IM 3+ YRS 2013-12-31 00:00:00 Completed [facility] Influenza Virus Vaccine Quad IM 3+ YRS 2013-12-31 00:00:00 Completed [facility] Influenza Virus Vaccine Quad IM 3+ YRS 2013-12-31 00:00:00 Completed [facility] Influenza Virus Vaccine Quad IM 3+ YRS 2013-12-31 00:00:00 Completed [facility] Influenza Virus Vaccine Quad IM 3+ YRS 2013-12-31 00:00:00 Completed [facility] Influenza Virus Vaccine Quad IM 3+ YRS Unknown Completed [facility] TDAP Unknown Completed [facility] SARS-COV-2 COVID-19 PFIZER VACCINE Unknown Completed [facility] Influenza Virus Vaccine Quad IM, Preserv and ABX Free 6 MO-64 YRS (FLUCELVAX) Unknown Completed [facility] HPV9 Unknown Completed [facility] Influenza Virus Vaccine Quad IM 3+ YRS Unknown Completed [facility] TDAP Unknown Completed [facility] SARS-COV-2 COVID-19 PFIZER VACCINE Unknown Completed [facility] Influenza Virus Vaccine Quad IM, Preserv and ABX Free 6 MO-64 YRS (FLUCELVAX) Unknown Completed [facility] HPV9 Unknown Completed [facility] Influenza Virus Vaccine Quad IM 3+ YRS Unknown Completed [facility] TDAP Unknown Completed [facility] SARS-COV-2 COVID-19 PFIZER VACCINE Unknown Completed [facility] Influenza Virus Vaccine Quad IM, Preserv and ABX Free 6 MO-64 YRS (FLUCELVAX) Unknown Completed [facility] HPV9 Unknown Completed [facility] Influenza Virus Vaccine Quad IM 3+ YRS Unknown Completed [facility] TDAP Unknown Completed [facility] SARS-COV-2 COVID-19 PFIZER VACCINE Unknown Completed [facility] Influenza Virus Vaccine Quad IM, Preserv and ABX Free 6 MO-64 YRS (FLUCELVAX) Unknown Completed [facility] HPV9 Unknown Completed [facility] Vital Signs Vital Name Observation Time Observation Value Comments S kyrie Systolic blood pressure 2022-07-18 17:47:00 121 mm[Hg] [facility] Diastolic blood pressure 2022-07-18 17:47:00 68 mm[Hg] [facility] Heart rate 2022-07-18 17:47:00 64 /min [facility] Body temperature 2022-07-18 17:47:00 36.5 Denise [facility] Respiratory rate 2022-07-18 17:47:00 18 /min [facility] Body height 2022-07-18 17:47:00 149.9 cm [facility] Body weight 2022-07-18 17:47:00 72.258 kg [facility] BMI 2022-07-18 17:47:00 32.17 kg/m2 [facility] Systolic blood pressure 2022-05-30 14:08:00 127 mm[Hg] [facility] Diastolic blood pressure 2022-05-30 14:08:00 77 mm[Hg] [facility] Heart rate 2022-05-30 14:08:00 72 /min [facility] Body temperature 2022-05-30 14:08:00 36.61 Denise [facility] Respiratory rate 2022-05-30 14:08:00 18 /min [facility] Body height 2022-05-30 14:08:00 149.9 cm [facility] Body weight 2022-05-30 14:08:00 70.716 kg [facility] BMI 2022-05-30 14:08:00 31.49 kg/m2 [facility] Systolic blood pressure 2022-05-02 19:50:00 132 mm[Hg] [facility] Diastolic blood pressure 2022-05-02 19:50:00 78 mm[Hg] [facility] Heart rate 2022-05-02 19:50:00 65 /min [facility] Body temperature 2022-05-02 19:50:00 36.33 Denise [facility] Respiratory rate 2022-05-02 19:50:00 18 /min [facility] Body height 2022-05-02 19:50:00 149.9 cm [facility] Body weight 2022-05-02 19:50:00 70.988 kg [facility] BMI 2022-05-02 19:50:00 31.61 kg/m2 [facility] Systolic blood pressure 2022-01-31 19:38:00 133 mm[Hg] [facility] Diastolic blood pressure 2022-01-31 19:38:00 72 mm[Hg] [facility] Heart rate 2022-01-31 19:38:00 72 /min [facility] Body temperature 2022-01-31 19:38:00 36.33 Denise [facility] Respiratory rate 2022-01-31 19:38:00 18 /min [facility] Body height 2022-01-31 19:38:00 149.9 cm [facility] Body weight 2022-01-31 19:38:00 72.303 kg [facility] BMI 2022-01-31 19:38:00 32.19 kg/m2 [facility] Systolic blood pressure 2021-11-06 15:07:00 132 mm[Hg] [facility] Diastolic blood pressure 2021-11-06 15:07:00 84 mm[Hg] [facility] Heart rate 2021-11-06 15:07:00 102 /min [facility] Body temperature 2021-11-06 15:07:00 36.89 Denise [facility] Respiratory rate 2021-11-06 15:07:00 20 /min [facility] Body height 2021-11-06 15:07:00 149.9 cm [facility] Body weight 2021-11-06 15:07:00 66.679 kg [facility] BMI 2021-11-06 15:07:00 29.69 kg/m2 [facility] BP Systolic 2023-12-06 11:15:00 130 mm[Hg] Step hen F Ayan BP Diastolic 2023-12-06 11:15:00 78 mm[Hg] Javier phen F Ayan Weight Measured 2023-12-06 11:15:00 128.40 pounds Cesar F Ayan Height Measured 2023-12-06 11:15:00 59.00 inches Cesar F [facility] Body Temperature 2023-12-06 11:15:00 98.10 degrees Cesar F Ayan Heart Rate 2023-12-06 11:15:00 68.00 /min Nena en F Ayan Respiratory Rate 2023-12-06 11:15:00 18.00 /min Cesar F Ayan BP Systolic 2023-12-06 11:07:00 130 mm[Hg] Step hen F Ayan BP Diastolic 2023-12-06 11:07:00 78 mm[Hg] Javier phen F Ayan Weight Measured 2023-12-06 11:07:00 128.40 pounds Cesar F Ayan Height Measured 2023-12-06 11:07:00 59.00 inches Cesar F Ayan Body Temperature 2023-12-06 11:07:00 98.10 degrees Cesar F Ayan Heart Rate 2023-12-06 11:07:00 68.00 /min Nena en F Ayan Respiratory Rate 2023-12-06 11:07:00 18.00 /min Cesar F Ayan BP Systolic 2023-11-08 11:02:00 Step hen F Ayan BP Diastolic 2023-11-08 11:02:00 Javier phen F Ayan Weight Measured 2023-11-08 11:02:00 Cesar F Ayan Height Measured 2023-11-08 11:02:00 Cesar F Ayan Body Temperature 2023-11-08 11:02:00 Cesar F Ayan Heart Rate 2023-11-08 11:02:00 Nena en F Ayan Respiratory Rate 2023-11-08 11:02:00 Cesar F Ayan BP Systolic 2023-10-10 15:22:00 Step hen F Ayan BP Diastolic 2023-10-10 15:22:00 Javier phen F Ayan Weight Measured 2023-10-10 15:22:00 Cesar F Ayan Height Measured 2023-10-10 15:22:00 Cesar F Ayan Body Temperature 2023-10-10 15:22:00 Cesar F Ayan Heart Rate 2023-10-10 15:22:00 Nena en F Ayan Respiratory Rate 2023-10-10 15:22:00 Cesar F Ayan BP Systolic 2023-09-12 09:41:00 129 mm[Hg] Step hen F Ayan BP Diastolic 2023-09-12 09:41:00 78 mm[Hg] Javier phen F Ayan Weight Measured 2023-09-12 09:41:00 141.80 pounds Cesar F Ayan Height Measured 2023-09-12 09:41:00 59.00 inches Cesar F Ayan Body Temperature 2023-09-12 09:41:00 98.30 degrees Cesar F Ayan Heart Rate 2023-09-12 09:41:00 85.00 /min Nena en F Ayan Respiratory Rate 2023-09-12 09:41:00 18.00 /min Cesar F Ayan BP Systolic 2023-08-15 08:39:00 111 mm[Hg] Step hen F Ayan BP Diastolic 2023-08-15 08:39:00 74 mm[Hg] Javier phen F Ayan Weight Measured 2023-08-15 08:39:00 145.60 pounds Cesar F Ayan Height Measured 2023-08-15 08:39:00 59.00 inches Cesar F Ayan Body Temperature 2023-08-15 08:39:00 98.20 degrees Cesar F Ayan Heart Rate 2023-08-15 08:39:00 98.00 /min Nena en F Ayan Respiratory Rate 2023-08-15 08:39:00 17.00 /min Cesar F Ayan BP Systolic 2023-08-14 17:21:00 126 mm[Hg] Step hen F Ayan BP Diastolic 2023-08-14 17:21:00 78 mm[Hg] Javier phen F Ayan Weight Measured 2023-08-14 17:21:00 144.40 pounds Cesar F Ayan Height Measured 2023-08-14 17:21:00 59.00 inches Cesar F Ayan Body Temperature 2023-08-14 17:21:00 98.20 degrees Cesar F Ayan Heart Rate 2023-08-14 17:21:00 90.00 /min Nena en F Ayan Respiratory Rate 2023-08-14 17:21:00 18.00 /min Cesar F Ayan BP Systolic 2023-07-18 09:23:00 127 mm[Hg] Step hen F Ayan BP Diastolic 2023-07-18 09:23:00 73 mm[Hg] Javier phen F Ayan Weight Measured 2023-07-18 09:23:00 147.00 pounds Cesar F Ayan Height Measured 2023-07-18 09:23:00 59.00 inches Cesar F Ayan Body Temperature 2023-07-18 09:23:00 97.90 degrees Cesar F Ayan Heart Rate 2023-07-18 09:23:00 76.00 /min Nena en F Ayan Respiratory Rate 2023-07-18 09:23:00 19.00 /min Cesar F Ayan BP Systolic 2023-06-20 08:43:00 130 mm[Hg] Step hen F Ayan BP Diastolic 2023-06-20 08:43:00 78 mm[Hg] Javier phen F Ayan Weight Measured 2023-06-20 08:43:00 149.00 pounds Cesar F Ayan Height Measured 2023-06-20 08:43:00 59.00 inches Cesar F Ayan Body Temperature 2023-06-20 08:43:00 98.10 degrees Cesar F Ayan Heart Rate 2023-06-20 08:43:00 78.00 /min Nena en F Ayan Respiratory Rate 2023-06-20 08:43:00 Cesar F Ayan BP Systolic 2023-05-24 09:17:00 118 mm[Hg] Step hen F Ayan BP Diastolic 2023-05-24 09:17:00 82 mm[Hg] Javier phen F Ayan Weight Measured 2023-05-24 09:17:00 149.90 pounds Cesar F Ayan Height Measured 2023-05-24 09:17:00 59.00 inches Cesar F Ayan Body Temperature 2023-05-24 09:17:00 98.60 degrees Cesar F Ayan Heart Rate 2023-05-24 09:17:00 94.00 /min Nena en F Ayan Respiratory Rate 2023-05-24 09:17:00 18.00 /min Cesar F Ayan BP Systolic 2023-05-04 16:11:00 122 mm[Hg] Step hen F Ayan BP Diastolic 2023-05-04 16:11:00 80 mm[Hg] Javier phen F Ayan Weight Measured 2023-05-04 16:11:00 151.80 pounds Cesar F Ayan Height Measured 2023-05-04 16:11:00 59.00 inches Cesar F Ayan Body Temperature 2023-05-04 16:11:00 98.20 degrees Cesar F Ayan Heart Rate 2023-05-04 16:11:00 66.00 /min Nena en F Ayan Respiratory Rate 2023-05-04 16:11:00 19.00 /min Cesar F Ayan BP Systolic 2023-04-25 13:45:00 125 mm[Hg] Step hen F Ayan BP Diastolic 2023-04-25 13:45:00 89 mm[Hg] Javier phen F Ayan Weight Measured 2023-04-25 13:45:00 147.60 pounds Cesar F Ayan Height Measured 2023-04-25 13:45:00 59.00 inches Cesar F Ayan Body Temperature 2023-04-25 13:45:00 98.50 degrees Cesar F Ayan Heart Rate 2023-04-25 13:45:00 109.00 /min Step hen F Ayan Respiratory Rate 2023-04-25 13:45:00 18.00 /min Cesar F Ayan BP Systolic 2023-03-22 08:52:00 133 mm[Hg] Step hen F Ayan BP Diastolic 2023-03-22 08:52:00 81 mm[Hg] Javier phen F Ayan Weight Measured 2023-03-22 08:52:00 153.40 pounds Cesar F Ayan Height Measured 2023-03-22 08:52:00 59.00 inches Cesar F Ayan Body Temperature 2023-03-22 08:52:00 98.20 degrees Cesar F Ayan Heart Rate 2023-03-22 08:52:00 68.00 /min Nena en F Ayan Respiratory Rate 2023-03-22 08:52:00 18.00 /min Cesar F Ayan Heart Rate 2023-03-01 09:39:00 109.00 /min Step hen F Ayan Respiratory Rate 2023-03-01 09:39:00 19.00 /min Cesar F Ayan BP Systolic 2023-03-01 09:39:00 121 mm[Hg] Step hen F Ayan BP Diastolic 2023-03-01 09:39:00 76 mm[Hg] Javier phen F Ayan Weight Measured 2023-03-01 09:39:00 158.80 pounds Cesar Botello Height Measured 2023-03-01 09:39:00 59.00 inches Cesar Botello Body Temperature 2023-03-01 09:39:00 98.10 degrees Cesar Botello BP Systolic 2023-01-31 08:26:00 119 mm[Hg] Noe hen Mis Botello BP Diastolic 2023-01-31 08:26:00 69 mm[Hg] Javier phen Mis Botello Weight Measured 2023-01-31 08:26:00 157.80 pounds Cesar Botello Height Measured 2023-01-31 08:26:00 59.00 inches Cesar Botello Body Temperature 2023-01-31 08:26:00 98.10 degrees Cesar Botello Heart Rate 2023-01-31 08:26:00 105.00 /min Noe Botello Respiratory Rate 2023-01-31 08:26:00 25.00 /min Cesar Botello Procedures Procedure Date / Time Performed Performing Clinicia n Source GARDASIL 9 (HPV 9V) VACCINE 2022-05-30 14:20:56 Maya Rodriguez [facility] GARDASIL 9 (HPV 9V) VACCINE 2022-05-02 20:40:11 Maya Rodriguez [facility] POCT TEST 2022-05-02 19:53:00 Rob Rodriguez [facility] FLU VACC (), 6 MO-64 YRS, .5ML, IM, QUAD (FLUCELVAX) 2022-01-31 19:41:06 Maya Rodriguez [facility] POCT TEST 2021-11-06 00:00:00 Ambrosio Anand [facility] Encounters Start Date/Time End Date/Time Encounter Type Admission Type Attending Clinicians Care Facility Care Department Encounter ID Source 2021-01-12 00:35:30 Emergency [facility] [id number] [facility] 2024-03-28 09:33:51 2024-03-28 09:33:51 Outpatient [facility] [id number] Cesarhelena Botello 2024-02-29 09:33:55 2024-02-29 09:33:55 Outpatient SFA SFA [id number] Cesar Botello 2024-02-01 11:47:56 2024-02-01 11:47:56 Outpatient SFA SFA [id number] Cesar Botello 2024-01-03 14:58:21 2024-01-03 14:58:21 Outpatient SFA SFA [id number] Cesar Botello 2023-12-06 11:15:31 2023-12-06 11:15:31 Outpatient SFA SFA [id number] Cesar Botello 2023-12-06 00:00:00 2023-12-06 00:00:00 Outpatient Visit SFA [id number] Cesar Botello 2023-10-10 15:21:48 2023-10-10 15:21:48 Outpatient SFA SFA [id number] Cesar Botello 2023-09-12 09:36:38 2023-09-12 09:36:38 Outpatient SFA SFA [id number] Cesar Botello 2023-08-15 11:23:41 2023-08-15 11:23:41 Outpatient SFA SFA [id number] Cesar Botello 2023-08-14 16:57:48 2023-08-14 16:57:48 Outpatient SFA SFA [id number] Cesar Botello 2023-08-14 00:00:00 2023-08-14 00:00:00 Outpatient Visit SFA [id number] Cesar Botello 2023-08-01 14:04:56 2023-08-01 14:04:56 Outpatient SFA SFA [id number] Cesar Botello 2023-07-18 09:18:42 2023-07-18 09:18:42 Outpatient SFA SFA [id number] Cesar Botello 2023-07-12 00:00:00 2023-07-12 00:00:00 Refill Akinsipe, Maya C [facility] CANDY WRAPPING MACHINE OPERATOR [facility] [id number] [id number] [id number] [id number] [facility] 2023-06-25 00:00:00 2023-06-25 00:00:00 Refill Akinsipe, Maya C [facility] CANDY WRAPPING MACHINE OPERATOR [facility] [id number] [id number] [id number] [id number] [facility] 2023-06-20 08:38:09 2023-06-20 08:38:09 Outpatient [facility] KIMBER [id number] Cesar Botello 2023-05-27 00:00:00 2023-05-27 00:00:00 Refill Akinsipe, Maya C [facility] CANDY WRAPPING MACHINE OPERATOR [facility] [id number] [id number] [id number] [id number] [facility] 2023-05-24 09:15:07 2023-05-24 09:15:07 Outpatient SFA KIMBER [id number] Cesar Botello 2023-05-16 00:00:00 2023-05-16 00:00:00 Refill Akinsipe, Maya C [facility] [id number] [id number] [id number] [id number] [facility] 2023-05-04 16:03:27 2023-05-04 16:03:27 Outpatient [facility] KIMBER [id number] Cesar Abebe Ayan 2023-04-25 13:40:07 2023-04-25 13:40:07 Outpatient [facility] [id number] Cesar F Ayan 2023-03-22 08:51:10 2023-03-22 08:51:10 Outpatient SFA SFA [id number] Cesar Botello 2023-03-01 09:34:22 2023-03-01 09:34:22 Outpatient SFA SFA [id number] Cesar Botello 2023-01-31 08:24:13 2023-01-31 08:24:13 Outpatient SFA SFA [id number] Cesar Botello 2023-01-30 08:19:09 2023-01-30 08:19:09 Outpatient SFA SFA [id number] Cesar Botello 2023-01-03 08:13:17 2023-01-03 08:13:17 Outpatient SFA SFA [id number] Cesar Botello 2022-12-23 17:55:04 2022-12-23 17:55:04 Outpatient SFA SFA [id number] Cesar Botello 2022-12-13 11:03:10 2022-12-13 11:03:10 Outpatient SFA SFA [id number] Cesar Botello 2022-11-30 10:30:00 2022-11-30 10:30:00 Outpatient R [facility] [id number] [facility] 2022-10-31 14:04:16 2022-10-31 14:04:16 Outpatient SFA SFA [id number] Cesar Botello 2022-10-25 13:45:44 2022-10-25 13:45:44 Outpatient SFA SFA [id number] Cesar Botello 2022-10-18 10:00:00 2022-10-18 10:00:00 Outpatient R [facility] [id number] [facility] 2022-10-15 09:44:52 2022-10-15 09:44:52 Outpatient SFA SFA [id number] Cesar Botello 2022-09-21 10:17:52 2022-09-21 10:17:52 Outpatient SFA SFA [id number] Cesar Botello 2022-09-14 13:52:56 2022-09-14 13:52:56 Outpatient SFA SFA [id number] Cesar Botello 2022-09-06 17:19:46 2022-09-06 17:19:46 Outpatient SFA [facility] [id number] Cesar Botello 2022-08-24 08:27:49 2022-08-24 08:27:49 Outpatient SFA SFA [id number] Cesar Botello 2022-08-03 09:06:54 2022-08-03 09:06:54 Outpatient S[facility] KIM[facility] [id number] Cesar Botello 2022-07-20 09:07:16 2022-07-20 09:07:16 Outpatient SFA [facility] [id number] Cesar Botello 2022-07-19 16:04:16 2022-07-19 16:04:16 Outpatient SFA [facility] [id number] Cesar Botello 2022-07-18 13:00:00 2022-07-18 13:00:00 Nurse Visit Visit, Jaden-Rmchp Nurse Maya Rodriguez [facility] CANDY WRAPPING MACHINE OPERATOR [facility] [id number] [id number] [id number] [id number] [facility] 2022-07-18 13:00:00 2022-07-18 12:57:16 Outpatient MAYA OROPEZA [facility] [id number] [facility] 2022-07-18 10:00:00 2022-07-18 10:00:00 Outpatient MAYA OROPEZA [facility] [id number] [facility] 2022-07-14 08:20:07 2022-07-14 08:20:07 Outpatient SFA [facility] [id number] Cesar Botello 2022-06-30 13:30:00 2022-06-30 13:30:00 Outpatient R [facility] [id number] [facility] 2022-06-15 08:16:01 2022-06-15 08:16:01 Outpatient SFA [facility] [id number] Cesar Botello 2022-05-30 09:00:00 2022-05-30 09:17:12 Nurse Visit Visit, Ang-Rmchp Nurse Maya Rodriguez [facility] CANDY WRAPPING MACHINE OPERATOR [facility] [id number] 350.1.13.10 [id number] [id number] [facility] 2022-05-30 09:00:00 2022-05-30 09:00:00 Outpatient R MAYA RODRIGUEZ [facility] [id number] [facility] 2022-05-23 13:00:00 2022-05-23 13:00:00 Outpatient R MAYA RODRIGUEZ [facility] [id number] [facility] 2022-05-21 00:00:00 2022-05-21 00:00:00 Refill Maya Rodriguez [facility] CANDY WRAPPING MACHINE OPERATOR [facility] [id number] 350.1.13.10 [id number] [id number] [facility] 2022-05-18 09:24:19 2022-05-18 09:24:19 Outpatient SFA KIMBER [id number] Cesar Botello 2022-05-02 13:45:00 2022-05-02 14:40:45 Office Visit Maya Rodriguez [facility] CANDY WRAPPING MACHINE OPERATOR [facility] [id number] 350.1.13.10 [id number] [id number] [facility] 2022-05-02 13:45:00 2022-05-02 14:40:45 Outpatient R MAYA RODRIGUEZ [facility] [id number] [facility] 2022-05-02 13:45:00 2022-05-02 13:45:00 Outpatient R MAYA RODRIGUEZ [facility] [id number] [facility] 2022-04-27 10:25:01 2022-04-27 10:25:01 Outpatient SFA SFA [id number] Cesar Botello 2022-04-20 09:33:48 2022-04-20 09:33:48 Outpatient [facility] [id number] Cesar Botello 2022-03-16 09:07:22 2022-03-16 09:07:22 Outpatient [facility] [id number] Cesar Botello 2022-02-23 10:27:13 2022-02-23 10:27:13 Outpatient [facility] [id number] Cesar Botello 2022-02-01 14:33:09 2022-02-01 14:33:09 Outpatient [facility] [id number] Cesar Botello 2022-01-31 13:30:00 2022-01-31 13:33:38 Nurse Visit Visit, Maya Cerrato [facility] WRAPPING MACHINE OPERATOR [facility] [id number] [facility] 2022-01-31 13:30:00 2022-01-31 13:30:00 Outpatient MAYA OROPEZA [facility] [id number] [facility] 2022-01-27 13:47:52 2022-01-27 13:47:52 Outpatient [facility] [id number] Abe[address] [place] 2022-01-26 10:09:13 2022-01-26 10:09:13 Outpatient [facility] [id number] Abebe [place] 2021-12-29 09:39:26 2021-12-29 09:39:26 Outpatient [facility] [id number] Cesar Abebe [place] 2021-11-06 11:00:00 2021-11-06 11:00:00 Outpatient JESENIA JAY [facility] [id number] [facility] 2021-11-06 11:00:00 2021-11-06 11:00:00 Nurse Visit Visit, Jesenia Dodson [facility]AND[facility] WRAPPING MACHINE OPERATOR [facility] [id number] [facility] 2021-11-04 00:00:00 2021-11-04 00:00:00 Telephone Maya Rodriguez [facility] WRAPPING MACHINE OPERATOR [facility] [id number] [id number] [facility] 2021-10-29 13:30:00 2021-10-29 13:30:00 Outpatient R [facility] [id number] [facility] 2021-10-29 13:30:00 2021-10-29 13:30:00 Outpatient R JESENIA ANAND [facility] [id number] [facility] 2021-08-04 00:00:00 2021-08-04 00:00:00 Telephone Maya Rodriguez [facility] CANDY WRAPPING MACHINE OPERATOR [facility] 1.2.840.114 350.1.13.10 4.2.7.2.686 [id number] 107 [id number] [facility] 2021-07-30 00:00:00 2021-07-30 00:00:00 Telephone Maya Rodriguez [facility] CANDY WRAPPING MACHINE OPERATOR [facility] 1.2.840.114 350.1.13.10 4.2.7.2.686 [id number] 107 [id number] [facility] 2021-07-29 14:45:00 2021-07-29 14:45:00 Office Visit Maya Rodrigeuz [facility] CANDY WRAPPING MACHINE OPERATOR [facility] 1.2.840.114 350.1.13.10 4.2.7.2.686 [id number] 107 [id number] [facility] 2021-07-29 14:45:00 2021-07-29 14:06:33 Outpatient R MAYA RODRIGUEZ [facility] [id number] [facility] 2021-07-29 13:00:00 2021-07-29 13:00:00 Outpatient JESENIA JAY [facility] [id number] [facility] 2021-06-11 00:00:00 2021-06-11 00:00:00 Telephone Maya Rodriguez [facility] CANDY WRAPPING MACHINE OPERATOR [facility] 1.2.840.114 350.1.13.10 4.2.7.2.686 [id number] 107 [id number] [facility] 2021-06-10 00:00:00 2021-06-10 00:00:00 Refill Maya Rodriguez [facility] CANDY WRAPPING MACHINE OPERATOR [facility] 1.2.840.114 350.1.13.10 4.2.7.2.686 [id number] 107 [id number] [facility] 2021-05-06 16:00:00 2021-05-06 16:29:54 Nurse Visit Visit, Ang-Rmchp Nurse Jesenia Anand [facility] CANDY WRAPPING [facility] 1.2.840.114 350.1.13.10 4.2.7.2.686 [id number] 107 [id number] [facility] 2021-05-06 16:00:00 2021-05-06 16:00:00 Outpatient R [facility] [id number] [facility] 2021-05-06 16:00:00 2021-05-06 16:00:00 Outpatient JESENIA JAY [facility] [id number] [facility] 2021-05-06 09:15:00 2021-05-06 09:15:00 Outpatient R MAYA RODRIGUEZ [facility] [id number] [facility] 2021-05-04 11:00:00 2021-05-04 11:00:00 Outpatient R MAAY RODRIGUEZ [facility] [id number] [facility] 2021-04-27 00:00:00 2021-04-27 00:00:00 Telephone Maya Rodriguez [facility] CANDY WRAPPING MACHINE OPERATOR [facility] 1..114 350.1.13.10 4.2.7.2.686 [id number] 107 [id number] [facility] 2021-04-26 14:00:00 2021-04-26 15:24:53 Office Visit Maya Rodriguez [facility] CANDY WRAPPING MACHINE OPERATOR [facility] 1.84.114 350.1.13.10 4.2.7.2.686 [id number] 107 [id number] [facility] 2021-04-26 14:00:00 2021-04-26 15:24:53 Outpatient R MAYA RODRIGUEZ [facility] [id number] [facility] 2021-04-26 14:00:00 2021-04-26 14:00:00 Outpatient R MAYA RODRIGUEZ [facility] [id number] [facility] 2021-04-26 00:00:00 2021-04-26 00:00:00 Orders Only Doctor Unassigned, [place] [facility] ..114 350.1.13.10 4.2.7.2.686 [id number] [facility] 2021-03-21 00:00:00 2021-03-21 00:00:00 Refill Maya Rodriguez [facility] CANDY WRAPPING MACHINE OPERATOR [facility] ..114 350.1.13.10 4.2.7.2.686 [id number] 107 [id number] [facility] 2021-03-19 00:00:00 2021-03-19 00:00:00 Refill Maya Rodriguez [facility] CANDY WRAPPING MACHINE OPERATOR [facility] 1.2.840.114 350.1.13.10 4.2.7.2.686 [id number] 107 [id number] [facility] 2021-02-12 00:00:00 2021-02-12 00:00:00 Maya Tse [facility] CANDY WRAPPING MACHINE OPERATOR [facility] 1.2.840.114 350.1.13.10 4.2.7.2.686 [id number] 107 [id number] [facility] 2021-02-11 09:04:30 2021-02-11 09:26:33 Nurse Visit Visit, Ang-Rmchp Nurse Maya Rodriguez [facility] CANDY WRAPPING MACHINE OPERATOR [facility] 1.840.114 350.1.13.10 4.2.7.2.686 [id number] 107 [id number] [facility] 2021-02-11 09:00:00 2021-02-11 09:00:00 Outpatient MAYA OROPEZA [facility] [id number] [facility] 2021-01-21 00:00:00 2021-01-21 00:00:00 Telephone Kathi Clark [facility] CANDY WRAPPING MACHINE OPERATOR [facility] 1.840.114 350.1.13.10 4.2.7.2.686 [id number] 107 [id number] [facility] 2021-01-18 00:00:00 2021-01-18 00:00:00 Maya Tse [facility] CANDY WRAPPING MACHINE OPERATOR [facility] 1.840.114 350.1.13.10 4.2.7.2.686 [id number] 107 [id number] [facility] 2020-12-02 13:00:00 2020-12-02 16:25:00 Emergency Asa [facility] 1.2840.114 350.1.13.10 4.2.7.2.686 [id number] [facility] 2020-11-26 00:00:00 2020-11-26 00:00:00 Telephone Maya Rodriguez [facility] CANDY WRAPPING MACHINE OPERATOR [facility] 1..840.114 350.1.13.10 4.2.7.2.686 [id number] 107 [id number] [facility] 2020-11-25 00:00:00 2020-11-25 00:00:00 Telephone Maya Rodriguez [facility] CANDY WRAPPING MACHINE OPERATOR [facility] 1..840.114 350.1.13.10 4.2.7.2.686 [id number] 107 [id number] [facility] 2020-11-19 08:30:14 2020-11-19 09:00:26 Nurse Visit Visit, Maya Cerrato [facility] CANDY WRAPPING MACHINE OPERATOR [facility] ..840.114 350.1.13.10 4.2.7.2.686 [id number] 107 [id number] [facility] 2020-11-19 08:30:00 2020-11-19 08:30:00 Outpatient R MAYA RODRIGUEZ [facility] [id number] [facility] 2020-11-18 08:00:00 2020-11-18 08:00:00 Outpatient R [facility] [id number] [facility] 2020-08-26 07:56:09 2020-08-26 08:26:18 Nurse Visit Visit, Maya Cerrato [facility] CANDY WRAPPING MACHINE OPERATOR [facility] ..840.114 350.1.13.10 4.2.7.2.686 [id number] 107 [id number] [facility] 2020-08-26 08:00:00 2020-08-26 08:00:00 Outpatient R [facility] [id number] [facility] 2020-08-25 11:00:00 2020-08-25 11:00:00 Outpatient R [facility] [id number] [facility] 2020-08-19 08:30:00 2020-08-19 08:30:00 Outpatient R JANETH GARZON [facility] [id number] [facility] 2020-07-29 09:50:00 2020-07-29 09:50:00 Outpatient R JANETH GARZON [facility] [id number] [facility] 2020-07-29 08:20:00 2020-07-29 08:20:00 Outpatient R [facility] [id number] [facility] 2020-06-02 13:00:00 2020-06-02 13:00:00 Outpatient R [facility] [id number] [facility] 2020-06-02 09:13:44 2020-06-02 09:37:47 Nurse Visit Visit, Ang-Rmchp Nurse Maya Rodriguez [facility] CANDY WRAPPING MACHINE OPERATOR [facility] .2.840.114 350.1.13.10 4.2.7.2.686 [id number] 107 [id number] [facility] 2020-06-02 09:00:00 2020-06-02 09:00:00 Outpatient MAYA OROPEZA [facility] [id number] [facility] 2020-03-10 12:56:13 2020-03-10 13:34:42 Office Visit Maya Rodriguez [facility] CANDY WRAPPING MACHINE OPERATOR [facility] .2.840.114 350.1.13.10 4.2.7.2.686 [id number] 107 [id number] [facility] 2020-03-10 13:00:00 2020-03-10 13:00:00 Outpatient MAYA OROPEZA [facility] [id number] [facility] 2020-03-09 15:00:00 2020-03-09 15:00:00 Outpatient R MAYA RODRIGUEZ [facility] [id number] [facility] 2019-12-13 13:40:25 2019-12-13 14:16:21 Nurse Visit Visit, Ang-Rmchp Nurse Maya Rodriguez [facility] CANDY WRAPPING MACHINE OPERATOR [facility] 1.840.114 350.1.13.10 4.2.7.2.686 [id number] 107 [id number] [facility] 2019-12-13 13:30:00 2019-12-13 13:30:00 Outpatient R [facility] [id number] [facility] 2019-12-05 09:30:00 2019-12-05 09:30:00 Outpatient R PRITINATALIACHARISMA [facility] [id number] [facility] 2019-12-05 07:06:12 2019-12-05 07:21:12 Telemedici ne Visit [facility] [address] 1..114 350.1.13.10 4.2.7.2.686 [id number] [facility] 2019-11-28 10:37:18 2019-11-28 12:04:25 Office Visit Abilio Yanet [facility] [address] [facility] 1.84.114 350.1.13.10 4.2.7.2.686 [id number] [facility] 2019-11-28 11:30:00 2019-11-28 11:30:00 Outpatient R ABILIOYANET [facility] [id number] [facility] 2019-10-02 00:00:00 2019-10-02 00:00:00 Telephone Maya Rodriguez [facility] CANDY WRAPPING MACHINE OPERATOR [facility] 1..114 350.1.13.10 4.2.7.2.686 [id number] 107 [id number] [facility] 2019-09-26 10:49:38 2019-09-26 11:55:54 Office Visit Maya Rodriguez [facility] CANDY WRAPPING MACHINE OPERATOR [facility] 1..840.114 350.1.13.10 4.2.7.2.686 [id number] 107 [id number] [facility] 2019-09-26 11:00:00 2019-09-26 11:00:00 Outpatient R MAYA RODRIGUEZ [facility] [id number] [facility] 2019-09-20 14:18:21 2019-09-20 14:56:01 Nurse Visit Visit, Jaden-Nellie Nurse Maya Rodriguez [facility] CANDY WRAPPING MACHINE OPERATOR [facility] 1..840.114 350.1.13.10 4.2.7.2.686 [id number] 107 [id number] [facility] 2019-09-20 14:00:00 2019-09-20 14:00:00 Outpatient R [facility] [id number] [facility] 2019-09-09 13:00:00 2019-09-09 13:00:00 Outpatient R MAYA RODRIGUEZ [facility] [id number] [facility] 2019-08-27 00:00:00 2019-08-27 00:00:00 Telephone Maya Rodriguez [facility] CANDY WRAPPING MACHINE OPERATOR [facility] 1..840.114 350.1.13.10 4.2.7.2.686 [id number] 107 [id number] [facility] 2019-08-26 13:59:55 2019-08-26 15:02:47 Nurse Visit Visit, Jaedn-Nellie Nurse Maya Rodriguez [facility] CANDY WRAPPING MACHINE OPERATOR [facility] 1.2.840.114 350.1.13.10 4.2.7.2.686 [id number] 107 [id number] [facility] 2019-08-26 13:30:00 2019-08-26 13:30:00 Outpatient R MAYA RODRIGUEZ [facility] [id number] [facility] 2019-08-23 00:00:00 2019-08-23 00:00:00 Telephone Maya Rodriguez [facility] CANDY WRAPPING MACHINE OPERATOR [facility] 1.2.840.114 350.1.13.10 4.2.7.2.686 [id number] 107 [id number] [facility] 2019-08-20 08:15:00 2019-08-20 08:15:00 Outpatient R MAYA RODRIGUEZ [facility] [id number] [facility] 2019-04-11 00:00:00 2019-04-11 00:00:00 Telephone Maya Rodriguez [facility] CANDY WRAPPING MACHINE OPERATOR [facility] 1.2.840.114 350.1.13.10 4.2.7.2.686 [id number] 107 [id number] [facility] 2019-04-10 00:00:00 2019-04-10 00:00:00 Telephone Maya Rodriguez [facility] CANDY WRAPPING MACHINE OPERATOR [facility] 1.2.840.114 350.1.13.10 4.2.7.2.686 [id number] 107 [id number] [facility] 2019-04-08 08:48:12 2019-04-08 10:01:21 Office Visit Maya Rodriguez [facility] CANDY WRAPPING MACHINE OPERATOR [facility] 1.2.840.114 350.1.13.10 4.2.7.2.686 [id number] 107 [id number] [facility] 2019-04-04 10:12:22 2019-04-04 10:41:10 Nurse Visit Visit, PauloRmchp Nurse Maya Rodriguez [facility] CANDY WRAPPING MACHINE OPERATOR [facility] 1.2.840.114 350.1.13.10 4.2.7.2.686 [id number] 107 [id number] [facility] Results Test Description Test Time Test Comments Results Result Co mments Source BUPRENORPHINE, QUANT, [id number] 09:23:51* Test Item Value Reference Range Interpretation Comments BUPRENORPHINE INTERP (test code = 79233) Positive A BUPRENORPHINE QNT (test code = 34743) >500 ng/mL <5 H Reference range indicates cutoff for positive result determination. Specimen Type: Urine Urine drug and metabolite concentrations are dependent on manyfactors, including patient compliance, drug dosing, dosing interval,individual variation in drug absorption and metabolism, urineconcentration, and limitations of testing. Assay is intended formedical purposes only, not for forensic use. This test was developed and its performance characteristicsdetermined by [facility] ([facility]). It has not beencleared or approved by the U.S. Food and Drug Administration (FDA).The FDA has determined that such clearance or approval is notnecessary. This test is used for clinical purposes and should not beregarded as investigational or for research. [facility] is qualified toperform high complexity testing under the Clinical LaboratoryImprovement Amendments (CLIA). TESTING PERFORMED AT [facility] [address] [place] [address], [address], [place] [address] CLIA NO: [id number] UNLESS OTHERWISE INDICATED, ALL TESTING PERFORMED AT [facility] [address] [place] [address] UNARMED SECURITY OFFICER: WENDY LORA M.D. CLIA NUMBER [id number] [facility] [place]. [id number] DRUG ABUSE SCREEN 10 REFLEX [id number] 05:31:19* Test Item Value Reference Range Interpretation Comments AMPHETAMINES (test code = 3201) NEGATIVE NEGATIVE BARBITURATES (test code = 3202) NEGATIVE NEGATIVE BENZODIAZEPINES (test code = 3203) NEGATIVE NEGATIVE CANNABINOIDS (test code = 3204) NEGATIVE NEGATIVE COCAINE METABOLITE (test code = 3205) NEGATIVE NEGATIVE OPIATES (test code = 3209) NEGATIVE NEGATIVE OXYCODONE (test code = 61341) SEE REFLEX TESTING NEGATIVE A PHENCYCLIDINE (test code = 3210) NEGATIVE NEGATIVE METHADONE (test code = 3207) NEGATIVE NEGATIVE BUPRENORPHINE (test code = 31105) SEE REFLEX TESTING NEGATIVE A SOURCE (test code = 310604) URINE SEE BELOW FO R THRESHOLDS AND IMPORTANT METHOD NOTES ANALYTE SCREENING CUTOFF CONFIRMATORY CUTOFF ___AMPHETAMINES 500 NG/ML 100 NG/MLBARBITURATES 200 NG/ML 100 NG/MLBENZODIAZEPINES 200 NG/ML 100 NG/MLCANNABINOIDS (THC) 20 NG/ML 15 NG/MLCOCAINE METABOLITES 150 NG/ML 100 NG/MLOPIATE METABOLITES 300 NG/ML 100 NG/MLOXYCODONE 100 NG/ML 100 NG/MLPHENCYCLIDINE (PCP) 25 NG/ML 25 NG/MLMETHADONE 300 NG/ML 100 NG/MLBUPRENORPHINE 5 NG/ML 5 NG/ML NOTE: Screening methodology is qualitative Enzyme Immunoassay.The screening method may be less sensitive for certain medicationsincluding clonazepam and lorazepam in the benzodiazepine assay andtramadol or fentanyl in the opiate assay, amongst others. Patientcompliance, hydration status, timing and dose of medications, drugabsorption and specimen quality may affect screening assay.For clinical discrepancies, consider directed testing for specificcompounds or contact the laboratory within [facility] testing. This test is specified for medicalpurposes only. It is not valid for forensic use. CULTURE, [id number] 09:14:14SPECIMEN NUMBER: [id number] CULTURE, URINE SPECIMEN NUMBER: [id number] SPECIMEN COMMENT: URINE SOURCE: URINE REPORT STATUS: FINAL FINAL REPORT: 09/09/2022 50-100,000 CFU/ML UROGENITAL DL PRESENT NO C OMMON PATHOGENS UNLESS OTHERWISE INDICATED, ALL TESTING PERFORMED AT [facility] [address] [place] [address] UNARMED SECURITY OFFICER: WENDY LORA M.D. CLIA NUMBER [id number] [place]. [id number] CULTURE, [id number] 00:00:00* Test Item Value Reference Range Interpretation Comme nts CULTURE, URINE (test code = 09646) SPECIMEN NUMBER: [id number] Cesar BotelloCULTURE, [id number] 00:00:00* Test Item Value Reference Range Interpretation Comme nts CULTURE, URINE (test code = 94977) SPECIMEN NUMBER: [id number] Cesar BotelloPOCT [id number] 19:53:00* Test Item Value Reference Range Interpretation Comme nts POCT PREG (test code = 1605) Negative On board controls acceptable with C Line (test code = 3574) Yes POCT PREG LOT # (test code = 3575) POCT PREG TEST DATE ( test code = 3576) [id number] 19:53:00* Test Item Value Reference Range Interpretation Comme nts POCT PREG (test code = 1605) Negative On board controls acceptable with C Line (test code = 3574) Yes POCT PREG LOT # (test code = 3575) POCT PREG TEST DATE ( test code = 3576) [facility] [id number] 19:53:00* Test Item Value Reference Range Interpretation Comme nts POCT PREG (test code = 1605) Negative On board controls acceptable with C Line (test code = 3574) Yes POCT PREG LOT # (test code = 3575) POCT PREG TEST DATE ( test code = 3576) [facility] [id number] 00:00:00* Test Item Value Reference Range Interpretation Comme nts CULTURE, URINE (test code = 40025) SPECIMEN NUMBER: [id number] Cesar WrightLTVAN, [id number] 00:00:00* Test Item Value Reference Range Interpretation Comme nts CULTURE, URINE (test code = 54787) SPECIMEN NUMBER: [id number] Cesar BotelloPOCT [id number] 15:12:00* Test Item Value Reference Range Interpretation Comme nts POCT PREG (test code = 1605) Negative On board controls acceptable with C Line (test code = 3574) Yes POCT PREG LOT # (test code = 3575) POCT PREG TEST DATE ( test code = 3576) [facility], NAAT, [id number] 19:27:51* Test Item Value Reference Range Interpretation Comme nts GONORRHEA, NAAT (test code = 14794) NEGATIVE NEGATIVE IMPORTANT NO KRISTINA: SEE ANNOUNCEMENT AT [email or web address]sUrineKit Note: Assay methodology is nucleic acid amplification by small craft operator mediated amplification (TMA) utilizing the Aptima Combo 2 Assay. CHLAMYDIA, NAAT (test code = 41865) NEGATIVE NEGATIVE IMPORTANT NO KRISTINA: SEE ANNOUNCEMENT AT [email or web address]rineKit Note: Assay methodology is nucleic acid amplification by small craft operator mediated amplification (TMA) utilizing the Aptima Combo 2 Assay. HEPATITIS PANEL, [id number] 03:48:51* Test Item Value Reference Range Interpretation Comme nts HEPATITIS A IgM (test code = 07338) NON-REACTIVE NON-REACTIVE HEPATITIS B CORE IgM (test code = 4644) NON-REACTIVE NON-REACTIVE HEPATITIS B SURF AG (test code = 2739) NON-REACTIVE NON-REACTIVE HEPATITIS C ANTIBODY (test code = 4675) NON-REACTIVE NON-REACTIVE INTERPRETATION HEPATITIS A: (test code = 2552) (NOTE) Hepatitis A serology shows no evidence of acute hepatitis A. INTERPRETATION HEPATITIS B: (test code = 77495) (NOTE) Hepatitis B serology shows no evidence of acute hepatitis B andno indication of exposure to hepatitis B virus in the previous steven eight months. INTERPRETATION HEPATITIS C: (test code = 66391) (NOTE) Hepatitis C serology shows no evidence of exposure to hepatitisC virus at this time. It can take up to 12 months after exposure tothe hepatitis C virus for antibodies to become detectable in the blood in certain patients. HIV 1/2 4TH GEN, RFLX [id number] 03:48:51* Test Item Value Reference Range Interpretation Comme nts HIV 1/2 4TH GEN, RFLX CONF (test code = 3514) NON-REACTIVE NON-REACTIVE UNLESS OTHERWISE INDICATED, ALL TESTING [facility]FORMED [facility] [address] [place] [address] UNARMED SECURITY OFFICER: KAT SCOTT M.D. CLIA NUMBER [id number] [facility] [place]. [id number] 02:30:21* Test Item Value Reference Range Interpretation Comme nts RPR RESULT (test code = 3501) NON-REACTIVE NON-REACTIVE RPR TITER (test code = 3500) NOT INDIC. TITER NOT INDIC. GC AND CHLAMYDIA, AMPLIFIED, [id number] 00:00:00* Test Item Value Reference Range Interpretation Comme nts GONORRHEA, NAAT (test code = 08361) NEGATIVE CHLAMYDIA, NAAT (test code = 20110) NEGATIVE Cesar [id number] 00:00:00* Test Item Value Reference Range Interpretation Comme nts RPR RESULT (test code = 3501) NON-REACTIVE RPR TITER (test code = 3500) NOT INDIC. TITER Cesar BotelloACUTE HEPATITIS [id number] 00:00:00* Test Item Value Reference Range Interpretation Comme nts HEPATITIS A IgM (test code = 97408) NON-REACTIVE HEPATITIS B CORE IgM (test c ode = 4644) NON-REACTIVE HEPATITIS B SURF AG (test co de = 2739) NON-REACTIVE HEPATITIS C ANTIBODY (test c ode = 4675) NON-REACTIVE INTERPRETATION HEPATITIS A: (test code = 2552) (NOTE) INTERPRETATION HEPATITIS B: (test code = 12089) (NOTE) INTERPRETATION HEPATITIS C: (test code = 21394) (NOTE) Cesar BotelloHIV AB/AG COMBO RFLX [id number] 00:00:00* Test Item Value Reference Range Interpretation Comme nts HIV 1/2 4TH GEN, RFLX CONF ( test code = 3514) NON-REACTIVE Cesar Dasilva AND CHLAMYDIA, AMPLIFIED, [id number] 00:00:00* Test Item Value Reference Range Interpretation Comme nts GONORRHEA, NAAT (test code = 48369) NEGATIVE CHLAMYDIA, NAAT (test code = 48977) NEGATIVE Cesar [id number] 00:00:00* Test Item Value Reference Range Interpretation Comme nts RPR RESULT (test code = 3501) NON-REACTIVE RPR TITER (test code = 3500) NOT INDIC. TITER Cesar BotelloACUTE HEPATITIS [id number] 00:00:00* Test Item Value Reference Range Interpretation Comme nts HEPATITIS A IgM (test code = 92656) NON-REACTIVE HEPATITIS B CORE IgM (test c ode = 4644) NON-REACTIVE HEPATITIS B SURF AG (test co de = 2739) NON-REACTIVE HEPATITIS C ANTIBODY (test c ode = 4675) NON-REACTIVE INTERPRETATION HEPATITIS A: (test code = 2552) (NOTE) INTERPRETATION HEPATITIS B: (test code = 04350) (NOTE) INTERPRETATION HEPATITIS C: (test code = 67266) (NOTE) Cesar BotelloHIV AB/AG COMBO RFLX [id number] 00:00:00* Test Item Value Reference Range Interpretation Comme nts HIV 1/2 4TH GEN, RFLX CONF ( test code = 3514) NON-REACTIVE Cesar BotelloHIV 1/2 4TH GEN, RFLX [id number] 08:49:42* Test Item Value Reference Range Interpretation Comme nts HIV 1/2 4TH GEN, RFLX CONF ( test code = 3514) NON-REACTIVE NON-REACTIVE HEPATITIS PANEL, [id number] 08:49:42* Test Item Value Reference Range Interpretation Comme nts HEPATITIS A IgM (test code = 65942) NON-REACTIVE NON-REACTIVE HEPATITIS B CORE IgM (test code = 4644) NON-REACTIVE NON-REACTIVE HEPATITIS B SURF AG (test code = 2739) NON-REACTIVE NON-REACTIVE HEPATITIS C ANTIBODY (test code = 4675) NON-REACTIVE NON-REACTIVE INTERPRETATION HEPATITIS A: (test code = 2552) (NOTE) Hepatitis A serology shows no evidence of acute hepatitis A. INTERPRETATION HEPATITIS B: (test code = 98228) (NOTE) Hepatitis B serology shows no evidence of acute hepatitis B andno indication of exposure to hepatitis B virus in the previous steven eight months. INTERPRETATION HEPATITIS C: (test code = 91310) (NOTE) Hepatitis C serology shows no evidence of exposure to hepatitisC virus at this time. It can take up to 12 months after exposure tothe hepatitis C virus for antibodies to become detectable in the blood in certain patients. COMPREHENSIVE METABOLIC [id number] 07:32:03* Test Item Value Reference Range Interpretation Comme nts GLUCOSE (test code = 2217) 112 MG/DL 70-99 H BUN (test code = 2208) 14 MG/DL 6-20 CREATININE (test code = 2214) 0.75 MG/DL 0.60-1.30 eGFR (2020 CKD-EPI) (test code = 37998) 110 ML/MIN/1.73 >60 CALC BUN/CREAT (test code = 2235) 19 RATIO 6-28 SODIUM (test code = 2231) 139 MEQ/L 133-146 POTASSIUM (test code = 2228) 4.5 MEQ/L 3.5-5.4 CHLORIDE (test code = 2215) 100 MEQ/L 95-107 CARBON DIOXIDE (test code = 2206) 20 MEQ/L 19-31 CALCIUM (test code = 220) 9.8 MG/DL 8.5-10.5 PROTEIN, TOTAL (test code = 2229) 7.7 G/DL 6.1-8.3 ALBUMIN (test code = 2201) 4.7 G/DL 3.5-5.2 CALC GLOBULIN (test code = 2240) 3.0 G/DL 1.9-3.7 CALC A/G RATIO (test code = 223) 1.6 RATIO 1.0-2.6 BILIRUBIN, TOTAL (test code = 7) <0.2 MG/DL See_Comment [Automated me ssage] The system which generated this result transmitted reference range: <=1.2. The reference range was not used to interpret this result as normal/abnormal. ALKALINE PHOSPHATASE (test code = 2203) 65 U/L 40-112 AST (test code = 2217) 15 U/L 9-40 ALT (test code = 221) 11 U/L 5-40 UNLESS OTHERWISE INDICATED, ALL TESTING PERFORMED [id number] [address] [place] [address] UNARMED SECURITY OFFICER: KAT SCOTT M.D. CLIA NUMBER [id number] [facility] [place]. [id number] CBC W/AUTO DIFF WITH [id number] 05:08:46* Test Item Value Reference Range Interpretation Comme nts WBC (test code = 1001) 8.0 K/UL 3.5-11.0 RBC (test code = 1002) 4.31 M/UL 3.80-5.40 HEMOGLOBIN (test code = 1003) 13.1 G/DL 11.5-15.5 HEMATOCRIT (test code = 1004) 37.8 % 34.0-45.0 MCV (test code = 1005) 87.7 fL 80.0-99.0 MCH (test code = 1006) 30.4 PG 25.0-33.0 MCHC (test code = 1007) 34.7 G/DL 31.0-36.0 RDW (test code = 1038) 12.9 % 11.5-15.0 NEUTROPHILS (test code = 1008) 68.9 % LYMPHOCYTES (test code = 1010) 21.5 % MONOCYTES (test code = 1011) 7.5 % EOSINOPHILS (test code = 1012) 1.3 % BASOPHILS (test code = 1013) 0.5 % IMMATURE GRANULOCYTES (test code = 1036) 0.3 % NUCLEATED RBCS (test code = 1065) 0.0 /100 WBC'S See_Comment [Automated messa ge] The system which generated this result transmitted reference range: 0.0. The reference range was not used to interpret this result as normal/abnormal. PLATELET COUNT (test code = 1015) 312 K/UL 130-400 ABSOLUTE NEUTROPHILS (test code = 1066) 5.49 K/UL 1.50-7.50 ABSOLUTE LYMPHOCYTES (test code = 1067) 1.71 K/UL 1.00-4.00 ABSOLUTE MONOCYTES (test code = 1068) 0.60 K/UL 0.20-1.00 ABSOLUTE EOSINOPHILS (test code = 1040) 0.10 K/UL 0.00-0.50 ABSOLUTE BASOPHILS (test code = 1069) 0.04 K/UL 0.00-0.20 ABS IMMATURE GRANULOCYTES (test code = 1020) 0.02 K/UL 0.00-0.10 ABS NUCLEATED RBCS (test code = 92519) 0.00 K/UL 0.00-0.11 HIV AB/AG COMBO RFLX [id number] 00:00:00* Test Item Value Reference Range Interpretation Comme nts HIV 1/2 4TH GEN, RFLX CONF ( test code = 3514) NON-REACTIVE Cesar BotelloACUTE HEPATITIS [id number] 00:00:00* Test Item Value Reference Range Interpretation Comme nts HEPATITIS A IgM (test code = 81339) NON-REACTIVE HEPATITIS B CORE IgM (test c ode = 4644) NON-REACTIVE HEPATITIS B SURF AG (test co de = 2739) NON-REACTIVE HEPATITIS C ANTIBODY (test c ode = 4675) NON-REACTIVE INTERPRETATION HEPATITIS A: (test code = 2552) (NOTE) INTERPRETATION HEPATITIS B: (test code = 44539) (NOTE) INTERPRETATION HEPATITIS C: (test code = 37083) (NOTE) Cesar BoetlloCBC W/AUTO [id number] 00:00:00* Test Item Value Reference Range Interpretation Comme nts WBC (test code = 1001) 8.0 K/UL RBC (test code = 1002) 4.31 M/UL HEMOGLOBIN (test code = 1003) 13.1 G/DL HEMATOCRIT (test code = 1004) 37.8 % MCV (test code = 1005) 87.7 fL MCH (test code = 1006) 30.4 PG MCHC (test code = 1007) 34.7 G/DL RDW (test code = 1038) 12.9 % NEUTROPHILS (test code = 1008) 68.9 % LYMPHOCYTES (test code = 1010) 21.5 % MONOCYTES (test code = 1011) 7.5 % EOSINOPHILS (test code = 1012) 1.3 % BASOPHILS (test code = 1013) 0.5 % IMMATURE GRANULOCYTES (test code = 1036) 0.3 % NUCLEATED RBCS (test code = 1065) 0.0 /100WBC'S PLATELET COUNT (test code = 1015) 312 K/UL ABSOLUTE NEUTROPHILS (test c ode = 1066) 5.49 K/UL ABSOLUTE LYMPHOCYTES (test c ode = 1067) 1.71 K/UL ABSOLUTE MONOCYTES (test cod e = 1068) 0.60 K/UL ABSOLUTE EOSINOPHILS (test c ode = 1040) 0.10 K/UL ABSOLUTE BASOPHILS (test cod e = 1069) 0.04 K/UL ABS IMMATURE GRANULOCYTES (t est code = 1020) 0.02 K/UL ABS NUCLEATED RBCS (test cod e = 09568) 0.00 K/UL Cesar F AyanCOMPREHENSIVE METABOLIC [id number] 00:00:00* Test Item Value Reference Range Interpretation Comme nts GLUCOSE (test code = 2217) 112 MG/DL BUN (test code = 2208) 14 MG/DL CREATININE (test code = 2214) 0.75 MG/DL eGFR (2020 CKD-EPI) (test code = 20986) 110 ML/MIN/1.73 CALC BUN/CREAT (test code = 2235) 19 RATIO SODIUM (test code = 2231) 139 MEQ/L POTASSIUM (test code = 2228) 4.5 MEQ/L CHLORIDE (test code = 2215) 100 MEQ/L CARBON DIOXIDE (test code = 2206) 20 MEQ/L CALCIUM (test code = 2209) 9.8 MG/DL PROTEIN, TOTAL (test code = 2229) 7.7 G/DL ALBUMIN (test code = 2201) 4.7 G/DL CALC GLOBULIN (test code = 2240) 3.0 G/DL CALC A/G RATIO (test code = 2234) 1.6 RATIO BILIRUBIN, TOTAL (test code = 2207) <0.2 MG/DL ALKALINE PHOSPHATASE (test code = 2204) 65 U/L AST (test code = 2218) 15 U/L ALT (test code = 2219) 11 U/L Cesar BotelloHIV AB/AG COMBO RFLX [id number] 00:00:00* Test Item Value Reference Range Interpretation Comme nts HIV 1/2 4TH GEN, RFLX CONF ( test code = 3514) NON-REACTIVE Cesar BotelloACUTE HEPATITIS [id number] 00:00:00* Test Item Value Reference Range Interpretation Comme nts HEPATITIS A IgM (test code = 72199) NON-REACTIVE HEPATITIS B CORE IgM (test c ode = 4644) NON-REACTIVE HEPATITIS B SURF AG (test co de = 2739) NON-REACTIVE HEPATITIS C ANTIBODY (test c ode = 4675) NON-REACTIVE INTERPRETATION HEPATITIS A: (test code = 2552) (NOTE) INTERPRETATION HEPATITIS B: (test code = 35112) (NOTE) INTERPRETATION HEPATITIS C: (test code = 99446) (NOTE) Cesar BotelloCBC W/AUTO [id number] 00:00:00* Test Item Value Reference Range Interpretation Comme nts WBC (test code = 1001) 8.0 K/UL RBC (test code = 1002) 4.31 M/UL HEMOGLOBIN (test code = 1003) 13.1 G/DL HEMATOCRIT (test code = 1004) 37.8 % MCV (test code = 1005) 87.7 fL MCH (test code = 1006) 30.4 PG MCHC (test code = 1007) 34.7 G/DL RDW (test code = 1038) 12.9 % NEUTROPHILS (test code = 1008) 68.9 % LYMPHOCYTES (test code = 1010) 21.5 % MONOCYTES (test code = 1011) 7.5 % EOSINOPHILS (test code = 1012) 1.3 % BASOPHILS (test code = 1013) 0.5 % IMMATURE GRANULOCYTES (test code = 1036) 0.3 % NUCLEATED RBCS (test code = 1065) 0.0 /100WBC'S PLATELET COUNT (test code = 1015) 312 K/UL ABSOLUTE NEUTROPHILS (test c ode = 1066) 5.49 K/UL ABSOLUTE LYMPHOCYTES (test c ode = 1067) 1.71 K/UL ABSOLUTE MONOCYTES (test cod e = 1068) 0.60 K/UL ABSOLUTE EOSINOPHILS (test c ode = 1040) 0.10 K/UL ABSOLUTE BASOPHILS (test cod e = 1069) 0.04 K/UL ABS IMMATURE GRANULOCYTES (t est code = 1020) 0.02 K/UL ABS NUCLEATED RBCS (test cod e = 86511) 0.00 K/UL Cesar Mis AyanCOMPREHENSIVE METABOLIC [id number] 00:00:00* Test Item Value Reference Range Interpretation Comme nts GLUCOSE (test code = 2217) 112 MG/DL BUN (test code = 2208) 14 MG/DL CREATININE (test code = 2214) 0.75 MG/DL eGFR (2020 CKD-EPI) (test code = 05348) 110 ML/MIN/1.73 CALC BUN/CREAT (test code = 2235) 19 RATIO SODIUM (test code = 2231) 139 MEQ/L POTASSIUM (test code = 2228) 4.5 MEQ/L CHLORIDE (test code = 2215) 100 MEQ/L CARBON DIOXIDE (test code = 2206) 20 MEQ/L CALCIUM (test code = 2209) 9.8 MG/DL PROTEIN, TOTAL (test code = 2229) 7.7 G/DL ALBUMIN (test code = 2201) 4.7 G/DL CALC GLOBULIN (test code = 2240) 3.0 G/DL CALC A/G RATIO (test code = 2234) 1.6 RATIO BILIRUBIN, TOTAL (test code = 2207) <0.2 MG/DL ALKALINE PHOSPHATASE (test code = 2204) 65 U/L AST (test code = 2218) 15 U/L ALT (test code = 2219) 11 U/L Cesar MastersonRS-CoV-2 (COVID-19) by RT-PCR (HIGH RISK)2019-09-18 00:00:00* Test Item Value Reference Range Interpretation Comme nts SARS-CoV-2 INTERPRETATION (t est code = 08204) NEGATIVE SOURCE (test code = 44859) NOT SPECIFIED Cesar F [id number] (COVID-19) by RT-PCR (HIGH RISK)2019-09-18 00:00:00* Test Item Value Reference Range Interpretation Comme nts SARS-CoV-2 INTERPRETATION (t est code = 70395) NEGATIVE SOURCE (test code = 84439) NOT SPECIFIED Cesar Botello
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
[2024-04-08 14:00] VITALS: TEMP 98.7; O2SAT 100
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
== END 2024-04-08 12:27 | disposition home or self-care (01) ==
LOC: ER 11:42
DX: T23.201A Burn of second degree of right hand, unspecified site, initial encounter (principal); T31.0 Burns involving less than 10% of body surface
CPT/HCPCS: 99283